=== PATIENT | female | born 1970 | race Caucasian/White ===

== ENCOUNTER 2018-10-19 12:28 | Observation (INO) ==
[2018-10-19] MEDS ORDERED: methylPREDNISolone 125 MG/2 ML VIAL IVP ONE (12:46)
[2018-10-19] MEDS ORDERED: Ipratropium/Albuterol Neb 3 ML IH ONE (12:46)
[2018-10-19 13:32] LABS: Basophils % 0.3 %; Eosinophils # 0.1 K/mcL (0.0-0.6); Hematocrit 36.9 % (35.3-44.9); Hemoglobin 11.8 g/dL (11.5-15.4); Immature Granulocytes % 0.4 % (0-4); Lymphocytes # 3.5 K/mcL (0.6-4.6); Lymphocytes % 30.2 %; Mean Corpuscular Hemoglobin 27.1 pg (28.0-33.3); Mean Corpuscular Volume 84.8 fL (83.0-100.0); Mean Platelet Volume 11.1 fL (9.4-12.4); Monocytes # 0.6 K/mcL (0.0-1.3); Monocytes % 5.3 %; Neutrophils # 7.4 K/mcL (1.6-8.9); Platelet Count 241 K/mcL (140-400); Red Blood Count 4.35 M/mcL (3.82-4.97); Red Cell Distribution Width 13.1 % (11.5-14.5); Segmented Neutrophils % 62.8 %
[2018-10-19] MEDS ORDERED: 0.9 % Sodium Chloride 1,000 ML IVC ONE (13:35)
[2018-10-19 13:53] LABS: BUN/Creatinine Ratio 17 (6-26); Blood Urea Nitrogen 12 mg/dL (6-20); Calcium 9.1 mg/dL (8.6-10.3); Carbon Dioxide 21 mEq/L (23-29); Chloride 103 mEq/L (98-107); Glucose 187 mg/dL (70-105); Osmolality,Calculated 291 (280-300); Potassium 3.7 mEq/L (3.5-5.1); Sodium 138 mEq/L (136-145); eGFR For Non-African Americans > 60 (> 60)
[2018-10-19 13:54] LABS: Troponin I < 0.03 ng/mL (< 0.04)
--- NOTE | 2018-10-19 14:11 | Emergency Department Note ---
Disposition Clinical Impression: Asthma exacerbation Qualifiers: Asthma severity: severe Asthma persistence: persistent Qualified Code(s): J45.51 - Severe persistent asthma with (acute) exacerbation Disposition: Admitted As Inpatient Condition: Good SOB HPI - General Chief Complaint: ED Shortness of Breath/Dyspnea Stated Complaint: DION Time Seen by Provider: 10/19/18 12:43 Source: patient Mode of arrival: ambulatory Limitations: no limitations Nursing Notes Reviewed: Yes Vital Signs Reviewed: Yes - History of Present Illness Patient presenting to the emergency department complaining of shortness of breaths her last week and getting worse specifically last night. Patient uses an inhaler with spacer. She has been using 2 puffs every 4 hours as previously directed. Patient is to The mid 30s. Overall decreased air movement. History of asthma/COPD with no home oxygen requirement. No previous cardiac history. Patient will be treated for asthma exacerbation and reevaluated. - Related Data Home Medications Medication Instructions Recorded Confirmed Metformin HCl 1,000 mg PO BID 10/19/18 10/19/18 RX: FLUoxetine HCl [Prozac] 40 mg PO DAILY 10/19/18 10/19/18 RX: Lansoprazole [Prevacid] 30 mg PO DAILY 10/19/18 10/19/18 RX: Lisinopril [Zestril] 10 mg PO DAILY 10/19/18 10/19/18 Allergies Allergy/AdvReac Type Severity Reaction Status Date / Time acetaminophen AdvReac Hives Verified 08/06/18 13:20 [From Darvocet-N] ibuprofen AdvReac Rash Verified 08/06/18 13:20 Penicillins [PCN] AdvReac Hives Verified 08/06/18 13:20 prochlorperazine AdvReac Itching Verified 08/06/18 13:20 [From Compazine] propoxyphene AdvReac Hives Verified 08/06/18 13:20 [From Darvocet-N] Sulfa (Sulfonamide AdvReac Hives Verified 08/06/18 13:20 Antibiotics) All systems ED: reviewed and negative except as stated. Review of Systems: As Per HPI Constitutional: Denies: fever, chills ENT ED: Denies: congestion Cardiovascular: Reports: dyspnea on exertion. Denies: chest pain, palpitations Respiratory: Reports: cough, dyspnea, wheezes Gastrointestinal: Denies: abdominal pain, nausea, vomiting Genitourinary: Denies: urgency, dysuria Musculoskeletal: Denies: back pain Integumentary: Denies: rash, abrasion, lesions Neurological: Denies: headache Psychiatric: Reports: anxiety Endocrine: Reports: fatigue Past Medical History - Past Medical History Medical history: Reports: asthma, COPD, diabetes, hyperlipidemia, hypertension Surgical history: Reports: non-contributory Psychiatric history: Reports: no psych history LAST PULLER history: Reports: no LAST PULLER history - Social History Smoking Status: 2nd Hand Smoke Exposure Smokeless Tobacco Status: No Alcohol use: Reports: none Drug use: Reports: none Physical Exam General: Moderate respiratory distress Head: Normocephalic Atraumatic Eyes: PERRL, EOMI ENT: Airway patent, no stridor Neck: supple, no meningismus Chest: Wheezing bilaterally with overall decreased air movement. Cardiac: Regular rate and rhythm, no murmurs, rubs or gallops Abdomen: soft, nontender, nondistended; no guarding, rebound, or tenderness to percussion Musculoskeletal: Calves symmetric, nontender, no palpable cord Skin: No rash, normal skin tone Neuro: A awake alert and answering all questions appropriately but significantly anxious; No focal deficit, CN 2-12 symmetric and intact - General General appearance: alert, anxious Course - Reevaluation(s) Reevaluation #1: Symptoms significantly improved but not resolved. Patient is requiring 2 L nasal cannula to keep her pulse ox at 97-98%. Patient states that she has been remodeling her home and exposed to significant mold. Repeat lung exam shows continued wheezing but significant improved. - Consultations Consultation #1: Discussed with hospitalist. Patient accepted for admission. Vital Signs Temperature 98.0 F 10/19/18 12:29 Pulse Rate 81 10/19/18 12:29 Respiratory Rate 34 10/19/18 12:29 Blood Pressure 136/72 10/19/18 12:29 O2 Sat by Pulse Oximetry 98 10/19/18 12:29 Temperature 98.3 F 10/19/18 19:47 Pulse Rate 82 10/19/18 19:47 Respiratory Rate 19 10/19/18 19:47 Blood Pressure 155/75 10/19/18 19:47 O2 Sat by Pulse Oximetry 94 10/19/18 19:47 Oxygen Delivery Oxygen Delivery Nasal Cannula Shortness of Breath/Dyspnea - Medical Records Medical records reviewed: Yes I reviewed the patient's medical records. - Lab Data Lab results reviewed: Yes I reviewed the patient's lab results. Result diagrams: 18 12:56 18 12:56 Lab Results 10/19/1818 18 Range/Units 12:56 12:56 12:56 WBC 11.7 H (4.3-11.1) K/mcL RBC 4.35 (3.82-4.97) M/mcL Hgb 11.8 (11.5-15.4) g/dL Hct 36.9 (35.3-44.9) % MCV 84.8 (83.0-100.0) fL MCH 27.1 L (28.0-33.3) pg MCHC 32.0 (31.6-35.5) g/dL RDW 13.1 (11.5-14.5) % Plt Count 241 (140-400) K/mcL MPV 11.1 (9.4-12.4) fL Immature Gran % 0.4 (0-4) % Seg Neutrophils % 62.8 % Lymphocytes % 30.2 % Monocytes % 5.3 % Eosinophils % 1.0 % Basophils % 0.3 % Neutrophils # 7.4 (1.6-8.9) K/mcL Lymphocytes # 3.5 (0.6-4.6) K/mcL Monocytes # 0.6 (0.0-1.3) K/mcL Eosinophils # 0.1 (0.0-0.6) K/mcL Basophils # 0.0 (0.0-0.2) K/mcL Sodium 138 (136-145) mEq/L Potassium 3.7 (3.5-5.1) mEq/L Chloride 103 (98-107) mEq/L Carbon Dioxide 21 L (23-29) mEq/L BUN 12 (6-20) mg/dL Creatinine 0.72 (0.60-1.20) mg/dL Est GFR ( Amer) > 60 (> 60) Est GFR (Non-Af Amer) > 60 (> 60) BUN/Creatinine Ratio 17 (6-26) Glucose 187 H (70-105) mg/dL Calculated Osmolality 291 (280-300) Lactic Acid 4.4 H* (0.5-2.2) mmol/L Calcium 9.1 (8.6-10.3) mg/dL Troponin I < 0.03 (< 0.04) ng/mL B-Natriuretic Peptide (Less than 100) pg/mL 10/19/18 10/19/18 Range/Units 12:56 14:14 WBC (4.3-11.1) K/mcL RBC (3.82-4.97) M/mcL Hgb (11.5-15.4) g/dL Hct (35.3-44.9) % MCV (83.0-100.0) fL MCH (28.0-33.3) pg MCHC (31.6-35.5) g/dL RDW (11.5-14.5) % Plt Count (140-400) K/mcL MPV (9.4-12.4) fL Immature Gran % (0-4) % Seg Neutrophils % % Lymphocytes % % Monocytes % % Eosinophils % % Basophils % % Neutrophils # (1.6-8.9) K/mcL Lymphocytes # (0.6-4.6) K/mcL Monocytes # (0.0-1.3) K/mcL Eosinophils # (0.0-0.6) K/mcL Basophils # (0.0-0.2) K/mcL Sodium (136-145) mEq/L Potassium (3.5-5.1) mEq/L Chloride (98-107) mEq/L Carbon Dioxide (23-29) mEq/L BUN (6-20) mg/dL Creatinine (0.60-1.20) mg/dL Est GFR ( Amer) (> 60) Est GFR (Non-Af Amer) (> 60) BUN/Creatinine Ratio (6-26) Glucose (70-105) mg/dL Calculated Osmolality (280-300) Lactic Acid 4.1 H* (0.5-2.2) mmol/L Calcium (8.6-10.3) mg/dL Troponin I (< 0.04) ng/mL B-Natriuretic Peptide 29 (Less than 100) pg/mL - Radiology Data Radiology results reviewed: Yes I reviewed the patient's radiology results. - EKG Data EKG attestation: Yes I reviewed and interpreted this EKG. EKG results narrative: EKG shows sinus rhythm with heart of 83 ID interval 724 QRS 97 QTC 433 patient has no significant ST elevations or depressions. No old EKG within the system for comparison.
--- NOTE | 2018-10-19 15:26 | Internal Med History&Physical ---
<Rakan Laws - Last Filed: 10/19/18 15:42> Date of Encounter: 10/19/18 Time of Encounter: 15:21 Internal Medicine - H&P: HPI Chief complaint: Shortness of breath Admitted From: Home Plans for Post Hospital Care: Home History of present illness: Ms. Archibald is a 48 year old female past medical history of type 2 diabetes, severe asthma, obesity presented to the emergency department with shortness of breath and fatigue. states that over the weekend starting on Friday she noticed that it became harder for her to breathe, she was breathing more rapidly colon cancer breath and using her inhalers frequently. She states that she had used her albuterol inhaler roughly 5-6 times throughout the day multiple times at night and using her nebulizer machine frequently. Usually she only uses her albuterol inhaler twice a day and her nebulizer maybe once or twice a month. She states that over the last 3 months they have been remodeling their house and recently tore up her floors with exposure of mold under the floor boards. She is unsure if this was the cause but this she associates as an allergen and potential cause. She does mention that she was hospitalized one month ago at [facility] for strep throat states that she became septic and was given IV Levaquin which she had an anaphylactic reaction and transferred to the ICU for treatment. Since discharge she had been doing well until this past weekend. She has not had any real changes to her medications except for switching from Ventolin to pro-air for inhalers. She denies any other concerning symptoms. Past Med Surg Social Fam HX - Past Medical History Medical history: asthma, COPD, diabetes, hyperlipidemia, hypertension Psychiatric history: no psych history - Past Surgical History Surgical History: non-contributory - Social History Smoking Status: 2nd Hand Smoke Exposure Smokeless Tobacco Status: No Alcohol use: none Drug use: none - Family History Mother Hx Family Endocrine Disorder: Yes (Hypothyroidism) Father Hx Family Cardiac Disorders: Yes (Lower extremity swelling) Hx Family Endocrine Disorder: Yes (Hypothyroidism) Internal Medicine - H&P: Meds FLUoxetine HCl [Prozac] 40 mg PO DAILY 10/19/18 [History] Lansoprazole [Prevacid] 30 mg PO DAILY 10/19/18 [History] Lisinopril [Zestril] 10 mg PO DAILY 10/19/18 [History] Metformin HCl 1,000 mg PO BID 10/19/18 [History] Allergy/AdvReac Type Severity Reaction Status Date / Time acetaminophen AdvReac Hives Verified 08/06/18 13:20 [From Darvocet-N] ibuprofen AdvReac Rash Verified 08/06/18 13:20 Penicillins [PCN] AdvReac Hives Verified 08/06/18 13:20 prochlorperazine AdvReac Itching Verified 08/06/18 13:20 [From Compazine] propoxyphene AdvReac Hives Verified 08/06/18 13:20 [From Darvocet-N] Sulfa (Sulfonamide AdvReac Hives Verified 08/06/18 13:20 Antibiotics) All Systems PM: A 10-system review of systems was performed and is negative for pertinent findings except as documented above in the HPI. Review of systems: Positive for shortness of breath, tachypnea, headaches Denies fevers, chills, diaphoresis, change in vision, throat swelling, chest pain or chest pressure, abdominal pain, nausea vomiting diarrhea constipation or swelling in her extremities. - Constitutional Vitals: Temp Pulse Resp BP Pulse Ox 98.0 F 74 18 136/67 96 10/19/18 12:42 10/19/18 13:40 10/19/18 13:40 10/19/18 13:40 10/19/18 13:40 Exam: Gen. alert awake oriented in mild distress, tachypnea HEENT normocephalic, atraumatic, pupils equal reactive, oral mucosa dry, neck supple trachea midline no stridor present auscultation, no lymphadenopathy Skin appropriate color no noticeable rashes. Cardiac regular rate rhythm, grade 2/6 systolic ejection murmur, radial pulses 2+ bilateral no lower extremity edema Respiratory patient demonstrates tachypnea, diffuse wheezing with mild prolonged exhalation Abdomen soft nontender to palpation positive bowel sounds Extremities symmetric no erythema or edema Internal Med - H&P Results - Labs CBC & Chem 7: 10/19/18 12:56 10/19/18 12:56 Labs: Short CBC 10/19/18 Range/Units 12:56 WBC 11.7 H (4.3-11.1) K/mcL Hgb 11.8 (11.5-15.4) g/dL Hct 36.9 (35.3-44.9) % Plt Count 241 (140-400) K/mcL Neutrophils # 7.4 (1.6-8.9) K/mcL BMP 10/19/18 12:56 Sodium 138 Potassium 3.7 Chloride 103 Carbon Dioxide 21 L BUN 12 Creatinine 0.72 Glucose 187 H Calcium 9.1 Cardiac Enzymes 10/19/18 Range/Units 12:56 Troponin I < 0.03 (< 0.04) ng/mL - Impressions ITS Impressions Chest X-Ray 10/19/18 12:46 IMPRESSION: No acute cardiopulmonary disease. D/ / 10/19/2018 13:16:43 David Vill[facility]uerte MD / [facility] Interpreting Provider: David Villafuerte MD - Assessment and plan (1) Asthma exacerbation Current Visit: Yes Status: Acute Assessment and plan: Patient with a history of severe asthma presents with acute asthma exacerbation. - She has had increased inhaler use 5-6 times throughout the day multiple times at night, increased nebulizer treatments, shortness of breath at rest and with mild activity - Unable to control with home inhalers, presented found to be tachypnea, hypoxic requiring steroids and do a nebulizer treatment. Lactic acid 4.4 - Chest x-ray without concerning findings. Plan: - Continue IV steroids every 8 hours - Continue scheduled to nebulizer treatments - Patient may need long-acting steroid inhaler at the time of discharge - Continue to wean off oxygen - Trend lactic acid every 6 hours - TSH Qualifiers: Asthma severity: severe Asthma persistence: persistent Qualified Code(s): J45.51 - Severe persistent asthma with (acute) exacerbation (2) Type 2 diabetes mellitus Current Visit: Yes Status: Acute Assessment and plan: Patient type II diabetic only on metformin at home. - Hold metformin in the event of lactic acidosis - Before meals at bedtime glucose checks - Low-dose sliding scale insulin patient will receive steroids likely need increase as necessary. Qualifiers: Diabetes mellitus senior care insulin use: without manager intermediate use Diabetes mellitus complication status: without complication Qualified Code(s): E11.9 - Type 2 diabetes mellitus without complications (3) Hypertension Current Visit: Yes Status: Acute Assessment and plan: Continue home lisinopril. We will monitor blood pressure adjust as necessary. Mild elevation in the setting of acute exacerbation at this time. Qualifiers: Hypertension type: essential hypertension Qualified Code(s): I10 - Essential (primary) hypertension (4) Lactic acid acidosis Current Visit: Yes Status: Acute Assessment and plan: Lactic acid 4.4 in the setting of acute Asthma exacerbation. - Patient improving clinically in the emergency room - Likely elevated in the setting of increased inhaler use, respiratory acidosis and metformin use - Will hold metformin and treat Asthma exacerbation. - repeat Lactic acid levels in 6 hours. (5) DVT prophylaxis Current Visit: Yes Status: Acute Assessment and plan: SCDs - Time Spent With Patient Total time spent is greater than 50% in coordination of care (as documented) at patient's floor/unit and/or counseling patient: <Sr Pinkybillbasia - Last Filed: 10/19/18 16:59> Date of Encounter: 10/19/18 Time of Encounter: 16:00 Internal Medicine - H&P: HPI History of present illness: Ms. Archibald is a 48 year old female Past Med Surg Social Fam HX - Past Medical History Attestation: Yes The following information was validated with the patient. All Systems PM: A 10-system review of systems was performed and is negative for pertinent findings except as documented above in the HPI. - Constitutional Vitals: Temp Pulse Resp BP Pulse Ox 99.2 F 90 18 155/78 94 10/19/18 15:32 10/19/18 15:32 10/19/18 15:32 10/19/18 15:32 10/19/18 15:32 General appearance: Present: cooperative, A&O X 3, pleasant, answers questions appropriately Internal Med - H&P Results - Labs CBC & Chem 7: 10/19/18 12:56 10/19/18 12:56 Labs: Short CBC 10/19/18 Range/Units 12:56 WBC 11.7 H (4.3-11.1) K/mcL Hgb 11.8 (11.5-15.4) g/dL Hct 36.9 (35.3-44.9) % Plt Count 241 (140-400) K/mcL Neutrophils # 7.4 (1.6-8.9) K/mcL BMP 10/19/18 12:56 Sodium 138 Potassium 3.7 Chloride 103 Carbon Dioxide 21 L BUN 12 Creatinine 0.72 Glucose 187 H Calcium 9.1 Cardiac Enzymes 10/19/18 Range/Units 12:56 Troponin I < 0.03 (< 0.04) ng/mL - Impressions ITS Impressions Chest X-Ray 10/19/18 12:46 IMPRESSION: No acute cardiopulmonary disease. D/ / 10/19/2018 13:16:43 [facility] / [facility] Interpreting Provider: David Villafuerte MD - Time Spent With Patient Total time spent is greater than 50% in coordination of care (as documented) at patient's floor/unit and/or counseling patient: - Attending Attestation I saw evaluated and examined this patient and my medical decision-making was reviewed with the Resident Physician, Rakan Laws. I agree with the documented findings, disposition and treatment plan as described except to any changes set forth below. We independently had [id number] contact with the patient. Patient with a history of COPD, asthma, diabetes, hypertension presented to the ER with complaints of worsening shortness of breath. Her symptoms began on Friday and have been progressively worsening. She reports that she was admitted to by the hospital 1 month back for an episode of strep related septic shock. She had developed swelling in her throat and they were managing her in ICU because of concerns for airway patency. However she did not require to be intubated. She responded to steroids and antibiotics. She completed treatment with antibiotics as outpatient and recovered well from it. She has been cleaning her home for the past couple of days and has been exposed to dust and mold. Patient does not see a belly roller. Her asthma is managed by her primary care provider. She is not on home oxygen. Patient does report exertional dyspnea and lower extremity swelling. She does not have chest pain. General: Patient is alert, no acute distress, oriented x 3 Neck: normal inspection, trachea midline, full ROM, no carotid bruits Chest: normal inspection, symmetric chest rise Respiratory: Patient has bilateral end expiratory wheezing, rhonchi Cardiovascular: Regular rate and rhythm. s1 and s2 normal systolic murmur Bilateral pedal edema Abdomen: Abdomen is soft, nontender. Bowel sounds are present Musculoskeletal: Spontaneously moving all extremities Skin: warm, dry, intact. Neuro: Alert oriented x 3 normal cranial nerves, no focal deficits Psych: Patient's affect is normal Acute COPD/asthma exacerbation: Patient will be treated with bronchodilators, Solu-Medrol, and O2 supplementation as needed. Measure peak flows. High risk for complications. Check respiratory viral panel. Exertional dyspnea and pedal edema: Patient has a murmur and also has exertional dyspnea and lower extremity edema. We will obtain 2-D echocardiogram to better evaluate this. Essential hypertension: Monitor blood pressure. Resume home medications. Diabetes mellitus type 2: Sliding scale insulin. Diabetic diet. Lactic acidosis: Patient has elevated lactic acid. Could be due to multiple labs that the patient took at home. She is also on metformin. We will trend lactic acid levels while patient is in the hospital. She does not have any signs of hypotension or septic shock at this time. DVT prophylaxis with subcutaneous heparin.
[2018-10-19] MEDS ORDERED: *HR* Dextrose 50 % in Water (Syg) 50 ML SYRINGE IVP PRN (15:35)
[2018-10-19] MEDS ORDERED: Dextrose Gel 15 GM/37.5 ML TUBE PO PRN ×2 (15:35)
[2018-10-19] MEDS ORDERED: D5% in Water 1,000 ML IVC PRN (15:35)
[2018-10-19] MEDS ORDERED: Naloxone 0.4 MG/ML INJ IVP PRN (15:36)
[2018-10-19] MEDS ORDERED: Ringers Solution, Lactated 1,000 ML IVC SCH (15:45)
[2018-10-19] MEDS ORDERED: Ipratropium/Albuterol Neb 3 ML ONE (16:03)
[2018-10-19 16:35] LABS: Estimated Average Glucose 183 mg/dl
[2018-10-19 16:42] LABS: Magnesium 1.7 mg/dL (1.6-2.6); Phosphorous 2.8 mg/dL (2.7-4.5)
[2018-10-19] MEDS: Ipratropium/Albuterol Neb 3 ML IH SCH ×2 (16:42→21:48)
[2018-10-19] MEDS: Insulin LISPRO 300 UNITS/3 ML VIAL SQ SCH ×2 (18:29→21:16)
[2018-10-19 19:47] LABS: Adenovirus Not Detected (Not Detect); Bordetella Pertussis Not Detected (Not Detect); Chlamydophila pneumoniae Not Detected (Not Detect); Coronavirus 229E Not Detected (Not Detect); Coronavirus HKU1 Not Detected (Not Detect); Coronavirus NL63 Not Detected (Not Detect); Coronavirus OC43 Not Detected (Not Detect); Human Metapneumovirus Not Detected (Not Detect); Human Rhinovirus/Enterovirus Not Detected (Not Detect); Influenza A Subtype 2009 H1 Not Detected (Not Detect); Influenza A Untypeable Not Detected (Not Detect); Influenza B Not Detected (Not Detect); Mycoplasma pneumoniae Not Detected (Not Detect); Parainfluenza Virus 1 Not Detected (Not Detect); Parainfluenza Virus 2 Not Detected (Not Detect); Parainfluenza Virus 3 Not Detected (Not Detect); Parainfluenza Virus 4 Not Detected (Not Detect); Respiratory Syncytial Virus Not Detected (Not Detect)
[2018-10-19] MEDS: MethylPREDNISolone 40 MG/ML VIAL IVP SCH (21:16)
[2018-10-19] MEDS ORDERED: Menthol 9.1 MG LOZENGE PO PRN (23:39)
[2018-10-20] MEDS: Ipratropium/Albuterol Neb 3 ML IH SCH ×4 (03:27→22:18)
[2018-10-20 04:32] LABS: Basophils % 0.1 %; Hematocrit 37.8 % (35.3-44.9); Hemoglobin 12.3 g/dL (11.5-15.4); Immature Granulocytes % 0.9 % (0-4); Lymphocytes # 1.9 K/mcL (0.6-4.6); Lymphocytes % 11.8 %; Mean Corpuscular HGB Conc 32.5 g/dL (31.6-35.5); Mean Corpuscular Volume 83.1 fL (83.0-100.0); Mean Platelet Volume 11.2 fL (9.4-12.4); Monocytes # 0.2 K/mcL (0.0-1.3); Monocytes % 1.2 %; Neutrophils # 13.8 K/mcL (1.6-8.9); Platelet Count 270 K/mcL (140-400); Red Blood Count 4.55 M/mcL (3.82-4.97); Red Cell Distribution Width 13.4 % (11.5-14.5)
[2018-10-20 04:47] LABS: Alanine Aminotransferase 25 Units/L (7-52); Albumin 4.4 g/dL (3.5-5.7); Albumin/Globulin Ratio 1.6 (1.1-2.2); Alkaline Phosphatase 94 Units/L (34-104); Aspartate Amino Transferase 15 Units/L (13-39); BUN/Creatinine Ratio 20 (6-26); Bilirubin,Total 0.4 mg/dL (0.3-1.0); Blood Urea Nitrogen 11 mg/dL (6-20); Calcium 9.5 mg/dL (8.6-10.3); Carbon Dioxide 19 mEq/L (23-29); Chloride 105 mEq/L (98-107); Globulin 2.7 g/dL (2.4-3.5); Glucose 236 mg/dL (70-105); Osmolality,Calculated 291 (280-300); Potassium 4.1 mEq/L (3.5-5.1); Sodium 137 mEq/L (136-145); Total Protein 7.1 g/dL (6.4-8.9); eGFR For Non-African Americans > 60 (> 60)
[2018-10-20] MEDS: MethylPREDNISolone 40 MG/ML VIAL IVP SCH ×3 (05:48→21:32)
[2018-10-20] MEDS: FLUoxetine 20 MG CAPSULE PO SCH (08:12)
[2018-10-20] MEDS: Insulin LISPRO 300 UNITS/3 ML VIAL SQ SCH ×4 (08:13→21:32)
--- NOTE | 2018-10-20 08:50 | Electrocardiograph Report ---
[place] [employer] [facility] Test Date: 2018-10-19 Pat Name: Pedro Archibald Department: [id number] Room: 2A15 Gender: F Operater: : 1970 Requested By: Evan Bronson Order Number: [id number] Reading MD: Willy Duarte Measurements Intervals [place] Rate: 83 P: 27 [place]: 144 QRS: -3 QRSD: 97 T: 73 QT: 368 QTc: 433 Interpretive Statements Sinus rhythm Electronically Signed On 10-20-2018 8:48:43 EST by Willy Duarte
[2018-10-20] MEDS ORDERED: Acetaminophen 325 MG TABLET PO PRN (13:59)
[2018-10-20] MEDS: *HR* Heparin 5,000 UNIT/ML VIAL SQ SCH (17:10)
--- NOTE | 2018-10-20 19:13 | Internal Med Progress Note ---
Hospitalist Progress Note - Encounter Date of Encounter: 10/20/18 Time of Encounter: 11:00 - Subjective Interval History: Patient admitted due to shortness of breath secondary to asthma exacerbation. Patient with little improvement in symptoms overnight so we will continue IV Solu-Medrol in addition to scheduled DuoNeb's. - Exam Vitals: Temp Pulse Resp BP Pulse Ox 98.7 F 77 18 128/64 93 10/20/18 15:38 10/20/18 15:38 10/20/18 15:48 10/20/18 15:38 10/20/18 15:48 Exam: Gen.: Nonacute distress, alert and oriented 3 ENT: Mucosal membranes moist Respiratory: Decreased airflow with wheezing Cardiovascular: Normal S1 and S2 regular rate rhythm no murmurs rubs or gallops Abdomen: Soft, nontender and nondistended with positive bowel sounds Extremities: No lower extremity edema Skin: Normal color - Assessment and Plan (1) Asthma exacerbation Current Visit: Yes Status: Acute Assessment and Plan: Patient with little improvement in expiratory wheezing and airflow Will continue IV Solu-Medrol and scheduled DuoNeb (2) Hypertension Current Visit: Yes Status: Acute Assessment and Plan: Continue home medications (3) Type 2 diabetes mellitus Current Visit: Yes Status: Acute Assessment and Plan: Continue home medications (4) DVT prophylaxis Current Visit: Yes Status: Acute Assessment and Plan: Subcutaneous heparin - Time Spent with Patient Total time spent is greater than 50% in coordination of care (as documented) at patient's floor/unit and/or counseling patient: Internal Medicine: Result - Labs CBC & Chem 7: 10/20/18 03:48 10/20/18 03:48 Labs: Short CBC 10/20/18 Range/Units 03:48 WBC 16.0 H (4.3-11.1) K/mcL Hgb 12.3 (11.5-15.4) g/dL Hct 37.8 (35.3-44.9) % Plt Count 270 (140-400) K/mcL Neutrophils # 13.8 H (1.6-8.9) K/mcL BMP 10/20/18 03:48 Sodium 137 Potassium 4.1 Chloride 105 Carbon Dioxide 19 L BUN 11 Creatinine 0.56 L Glucose 236 H Calcium 9.5 Liver Function 10/20/18 Range/Units 03:48 Total Bilirubin 0.4 (0.3-1.0) mg/dL AST 15 (13-39) Units/L ALT 25 (7-52) Units/L Alkaline Phosphatase 94 (34-104) Units/L Albumin 4.4 (3.5-5.7) g/dL - Impressions Impressions Chest X-Ray 10/19/18 12:46 IMPRESSION: No acute cardiopulmonary disease. D/ / 10/19/2018 13:16:43 David Villafuerte MD / [facility] Interpreting Provider: David Villafuerte MD Echocardiogram 10/20/18 07:00 Impressions: LVEF 60-65%. Normal LV chamber size, wall thickness and function. Mild left ventricular diastolic dysfunction. Moderate concentric left ventricular hypertrophy. Normal right ventricular structure and function. Trace mitral regurgitation. Unable to estimate RVSP due to lack of TR jet. The IVC is dilated. Left Ventricular Wall Motion: Rest Echo Findings All wall segments showed normal motion. Findings: Study Quality * Technically adequate exam. ECG Findings * Normal sinus rhythm. Left Ventricle * LVEF 60-65%. * Normal LV chamber size, wall thickness and function. * Mild left ventricular diastolic dysfunction. * Moderate concentric left ventricular hypertrophy. Right Ventricle * Normal right ventricular structure and function. Left Atrium * Normal left atrial size. Right Atrium * Normal right atrial size. Interatrial Septum * No evidence of PFO by color Doppler. Aortic Valve * Trileaflet aortic valve. * No aortic regurgitation. * No aortic stenosis. Mitral Valve * Normal mitral valve structure. * No mitral stenosis. * Trace mitral regurgitation. Tricuspid Valve * Normal tricuspid valve structure. * No tricuspid regurgitation. * No tricuspid stenosis. * Unable to estimate RVSP due to lack of TR jet. Pulmonic Valve * Normal pulmonic valve structure. * No pulmonic regurgitation. Aorta * Normally sized aortic root. Pericardium * The pericardium appears normal. IVC * The IVC is dilated. 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
[2018-10-21] MEDS: Ipratropium/Albuterol Neb 3 ML IH SCH ×5 (04:01→23:15)
[2018-10-21] MEDS: MethylPREDNISolone 40 MG/ML VIAL IVP SCH ×3 (04:52→21:03)
[2018-10-21] MEDS: *HR* Heparin 5,000 UNIT/ML VIAL SQ SCH ×2 (04:54→17:32)
[2018-10-21] MEDS: Insulin LISPRO 300 UNITS/3 ML VIAL SQ SCH ×4 (10:02→21:04)
[2018-10-21] MEDS: FLUoxetine 20 MG CAPSULE PO SCH (10:03)
[2018-10-21 11:05] LABS: Basophils % 0.2 %; Hematocrit 35.7 % (35.3-44.9); Hemoglobin 11.5 g/dL (11.5-15.4); Immature Granulocytes % 2.2 % (0-4); Lymphocytes # 1.4 K/mcL (0.6-4.6); Lymphocytes % 7.5 %; Mean Corpuscular HGB Conc 32.2 g/dL (31.6-35.5); Mean Corpuscular Hemoglobin 27.3 pg (28.0-33.3); Mean Corpuscular Volume 84.8 fL (83.0-100.0); Mean Platelet Volume 11.4 fL (9.4-12.4); Monocytes # 0.5 K/mcL (0.0-1.3); Monocytes % 2.8 %; Neutrophils # 15.8 K/mcL (1.6-8.9); Platelet Count 275 K/mcL (140-400); Red Blood Count 4.21 M/mcL (3.82-4.97); Segmented Neutrophils % 87.3 %
[2018-10-21 11:20] LABS: BUN/Creatinine Ratio 33 (6-26); Blood Urea Nitrogen 24 mg/dL (6-20); Calcium 9.7 mg/dL (8.6-10.3); Carbon Dioxide 24 mEq/L (23-29); Chloride 104 mEq/L (98-107); Glucose 365 mg/dL (70-105); Osmolality,Calculated 305 (280-300); Potassium 4.7 mEq/L (3.5-5.1); Sodium 138 mEq/L (136-145); eGFR For Non-African Americans > 60 (> 60)
[2018-10-21] MEDS ORDERED: GuaiFENesin/Dextromethorphan TABLET PO PRN (19:08)
--- NOTE | 2018-10-21 19:58 | Internal Med Progress Note ---
Hospitalist Progress Note - Encounter Date of Encounter: 10/21/18 Time of Encounter: 11:00 - Subjective Interval History: Patient admitted due to shortness of breath secondary to asthma exacerbation. Patient with little improvement in symptoms overnight so we will continue IV Solu-Medrol in addition to scheduled DuoNeb's. Anticipate discharge on 10/22/18 - Exam Vitals: Temp Pulse Resp BP Pulse Ox 98.4 F 68 16 160/78 98 10/21/18 18:42 10/21/18 18:42 10/21/18 19:42 10/21/18 18:42 10/21/18 19:42 Exam: Gen.: Nonacute distress, alert and oriented 3 ENT: Mucosal membranes moist Respiratory: Decreased airflow with wheezing Cardiovascular: Normal S1 and S2 regular rate rhythm no murmurs rubs or gallops Abdomen: Soft, nontender and nondistended with positive bowel sounds Extremities: No lower extremity edema Skin: Normal color - Assessment and Plan (1) Asthma exacerbation Current Visit: Yes Status: Acute Assessment and Plan: Patient with little improvement in expiratory wheezing and airflow Will continue IV Solu-Medrol and scheduled DuoNeb (2) Hypertension Current Visit: Yes Status: Acute Assessment and Plan: Continue home medications (3) Type 2 diabetes mellitus Current Visit: Yes Status: Acute Assessment and Plan: Continue home medications (4) DVT prophylaxis Current Visit: Yes Status: Acute Assessment and Plan: Subcutaneous heparin - Time Spent with Patient Total time spent is greater than 50% in coordination of care (as documented) at patient's floor/unit and/or counseling patient: Internal Medicine: Result - Labs CBC & Chem 7: 10/21/18 10:18 10/21/18 10:18 Labs: Short CBC 10/21/18 Range/Units 10:18 WBC 18.1 H (4.3-11.1) K/mcL Hgb 11.5 (11.5-15.4) g/dL Hct 35.7 (35.3-44.9) % Plt Count 275 (140-400) K/mcL Neutrophils # 15.8 H (1.6-8.9) K/mcL BMP 10/21/18 10:18 Sodium 138 Potassium 4.7 Chloride 104 Carbon Dioxide 24 BUN 24 H Creatinine 0.73 Glucose 365 H Calcium 9.7 Consult Discharge Plan - Plan Referrals: Maria E Mackey MD [Primary Care Provider] - (1) Asthma exacerbation Qualifiers: Asthma severity: severe Asthma persistence: persistent Qualified Code(s): J45.51 - Severe persistent asthma with (acute) exacerbation (2) Hypertension Qualifiers: Hypertension type: essential hypertension Qualified Code(s): I10 - Essential (primary) hypertension (3) Type 2 diabetes mellitus Qualifiers: Diabetes mellitus nursing home insulin use: without vermin exterminator use Diabetes mellitus complication status: without complication Qualified Code(s): E11.9 - Type 2 diabetes mellitus without complications
[2018-10-22] MEDS: Ipratropium/Albuterol Neb 3 ML IH SCH ×3 (03:09→11:35)
[2018-10-22] MEDS: MethylPREDNISolone 40 MG/ML VIAL IVP SCH (05:20)
[2018-10-22] MEDS: *HR* Heparin 5,000 UNIT/ML VIAL SQ SCH (05:21)
[2018-10-22] MEDS: FLUoxetine 20 MG CAPSULE PO SCH (08:27)
[2018-10-22] MEDS: Insulin LISPRO 300 UNITS/3 ML VIAL SQ SCH ×2 (08:28→11:45)
[2018-10-22 11:20] VITALS: BP 178/80
--- NOTE | 2018-10-22 15:13 | Discharge Summary ---
- NOTES TO OUTPATIENT PROVIDER Notes to Outpatient Provider: none Date of Encounter: 10/22/18 Time of Encounter: 11:00 - Discharge Diagnosis (1) Asthma exacerbation Priority: Primary Status: Acute Qualifiers: Asthma severity: severe Asthma persistence: persistent Qualified Code(s): J45.51 - Severe persistent asthma with (acute) exacerbation (2) Hypertension Priority: Secondary Status: Acute Qualifiers: Hypertension type: essential hypertension Qualified Code(s): I10 - Essential (primary) hypertension (3) Type 2 diabetes mellitus Priority: Secondary Status: Acute Qualifiers: Diabetes mellitus half-way insulin use: without exterminator helper termite use Diabetes mellitus complication status: without complication Qualified Code(s): E11.9 - Type 2 diabetes mellitus without complications Hospital course: Patient is a 48-year-old male with past medical history significant for type 2 diabetes, severe asthma, obesity presented to the emergency department with shortness of breath and fatigue who was admitted for asthma exacerbation. During patients hospitalization or symptoms of wheezing and shortness of breath improved on IV Solu-Medrol and scheduled DuoNebs. Patient will be discharged home to continue a 5 day course of prednisone and follow up with primary care provider. - Time Spent with Patient Total time spent providing and/or coordinating discharge services: Less than 30 minutes - Discharge Medications Prescriptions: predniSONE [PredniSONE] 40 mg PO DAILY 5 Days #10 tablet Home Medications: FLUoxetine HCl [Prozac] 40 mg PO DAILY 10/19/18 [History] Lansoprazole [Prevacid] 30 mg PO DAILY 10/19/18 [History] Lisinopril [Zestril] 10 mg PO DAILY 10/19/18 [History] Metformin HCl 1,000 mg PO BID 10/19/18 [History] predniSONE [PredniSONE] 40 mg PO DAILY 5 Days #10 tablet 10/22/18 [Rx] Allergies/Adverse Reactions: Allergy/AdvReac Type Severity Reaction Status Date / Time levofloxacin [From Levaquin] Allergy Anaphylaxis Verified 10/20/18 02:05 ibuprofen AdvReac Rash Verified 08/06/18 13:20 Penicillins [PCN] AdvReac Hives Verified 08/06/18 13:20 prochlorperazine AdvReac Itching Verified 08/06/18 13:20 [From Compazine] propoxyphene AdvReac Hives Verified 08/06/18 13:20 [From Darkirill-N] Sulfa (Sulfonamide AdvReac Hives Verified 08/06/18 13:20 Antibiotics) Date of admission: 10/19/18 14:38 Primary care physician: Maria E Mackey MD Consults: 10/19/18 16:56 Consult to Respiratory Therapy [CONS] Routine Reason for Consult: Measure peak flows every 6 hours Time Notified: 16:57 Call Completed: Yes - Constitutional Vitals: Temp Pulse Resp BP Pulse Ox 98.5 F 63 16 178/80 92 10/22/18 11:00 10/22/18 11:00 10/22/18 11:37 10/22/18 11:37 10/22/18 11:37 General appearance: Present: cooperative, A&O X 3, pleasant, answers questions appropriately Exam: Gen.: Nonacute distress, alert and oriented 3 Respiratory: Decreased airflow with wheezing Skin: Normal color - Patient Status Disposition: Home, Self-Care Condition: Good - Discharge Instructions Instructions: Asthma (DC), Diabetes Mellitus Type 2 in Adults (DC) Follow Up With: Maria E Mackey MD [Primary Care Provider] - 10/29/18 1:15 pm (Please follow up as schedule...)
== END 2018-10-22 15:56 | disposition home or self-care (01) ==
LOC: 2ANU 12:28 → EMEROOARM 12:28 → SUATTDRO 14:38 → 2ANU 15:15
PROVIDERS: ADMIT Internal Medicine; ATTEND Hospitalist

== ENCOUNTER 2019-03-24 09:23 | Observation (INO) ==
--- NOTE | 2019-03-24 09:40 | Emergency Department Note ---
Disposition Clinical Impression: Chest pain Qualifiers: Chest pain type: unspecified Qualified Code(s): R07.9 - Chest pain, unspecified Disposition: Admitted As Inpatient Condition: Fair Time of Disposition: 00:00 (see actual ED d/c time) Chest Pain HPI - General Chief Complaint: ED Chest Pain Stated Complaint: Chest Pain Time Seen by Provider: 03/24/19 09:27 Source: patient Mode of arrival: ambulatory Limitations: no limitations Vital Signs Reviewed: Yes (hypertensive) Nursing Notes Reviewed: Yes - History of Present Illness HPI Narrative: Ms. Archibald is a 49 year old female with history of asthma, COPD, htn, type II diabetes, hld, heart murmur unspecified, and surgical hx of appendectomy, cholecystectomy, hysterectomy who presents to the ED with complaint of sudden midsternal chest pain and sudden radiation to the back that started yesterday evening. Patient reports chest pain feel like pressure and as if someone sitting on her chest. She also reports shortness of breath that started suddenly as well with the chest pain and back pain. Patient reports that she took some of her inhalers and reports no improvement in symptoms, taking a deep breath does not worsen, did take an antacid thinking that she had heartburn and had no improvement in symptoms. Denies fevers, chills, sweats, nausea, vomiting, radiation to arm, new numbness or tingling, lightheadedness, new leg swelling, weakness, cough abdominal pain, changes in bowels or bladder, or rash. Known allergy to Ibuprofen resulted in rash, no trouble breathing or anaphylaxis to it, reported no allergy to aspirin. Severity scale (1-10): 9 - Related Data Home Medications Medication Instructions Recorded Confirmed FLUoxetine HCl [Prozac] 40 mg PO HS 10/19/18 03/24/19 Lansoprazole [Prevacid] 30 mg PO HS 10/19/18 03/24/19 Albuterol Sulfate [Proair Hfa] 2 puff IH QID PRN 03/24/19 03/24/19 Beclomethasone Dipropionate [QVAR 2 puff IH QAM 03/24/19 03/24/19 80 mcg REDIHALER] Glimepiride [Amaryl] 8 mg PO HS 03/24/19 03/24/19 Insulin Regular, Human [Novolin R] 5 unit SQ TIDAC 03/24/19 03/24/19 Ipratropium/Albuterol Sulfate 3 ml IH QID PRN 03/24/19 03/24/19 [Iprat-Albut 0.5-3(2.5) mg/3 ml] Losartan Potassium 100 mg PO HS 03/24/19 03/24/19 Montelukast [Singulair] 10 mg PO HS 03/24/19 03/24/19 Omeprazole [PriLOSEC] 20 mg PO HS 03/24/19 03/24/19 Promethazine [Phenergan] 25 mg PO Q4-8H PRN 03/24/19 03/24/19 Allergies Allergy/AdvReac Type Severity Reaction Status Date / Time levofloxacin [From Levaquin] Allergy Anaphylaxis Verified 03/24/19 09:31 ibuprofen AdvReac Rash Verified 03/24/19 09:31 Penicillins [PCN] AdvReac Hives Verified 03/24/19 09:31 prochlorperazine AdvReac Itching Verified 03/24/19 09:31 [From Compazine] propoxyphene AdvReac Hives Verified 03/24/19 09:31 [From Darvocet-N] Sulfa (Sulfonamide AdvReac Hives Verified 03/24/19 09:31 Antibiotics) Review of Systems: As Per HPI Chest Pain PMH - Past Medical History Medical history: Reports: asthma, COPD, diabetes, hyperlipidemia, hypertension Surgical history: Reports: other (appendectomy, cholecystectomy, hysterectomy) Psychiatric history: Reports: no psych history MERCHANDISE SUPERVISOR history: Reports: no MERCHANDISE SUPERVISOR history - Social History Smoking Status: 2nd Hand Smoke Exposure Alcohol use: Reports: none Drug use: Reports: none Physical Exam - General General appearance: alert, obese, other (mild discomfort, no conversational dyspnea, satting well on room air) - Head Head exam: normocephalic, normal inspection - Eye Eye exam: Present: normal appearance, PERRL, EOMI - ENT ENT exam: normal exam, normal oropharynx, mucous membranes moist - Neck Neck exam: Present: normal inspection, full ROM, trachea midline. Absent: lymphadenopathy - Chest Chest inspection: Present: normal inspection, symmetric chest wall rise, other (no tenderness with palpation of chest or back) - Respiratory Respiratory exam: Present: wheezes, prolonged expiratory phase. Absent: respiratory distress, accessory muscle use - Cardiovascular Cardiovascular exam: Present: regular rate, normal rhythm, normal heart sounds - Abdominal Exam Abdominal exam: Present: soft, normal bowel sounds, other (mild epigastric tenderness with deep palpation, no skin changes). Absent: guarding, rigidity - Extremities Exam Extremities exam: Present: normal inspection, full ROM, normal capillary refill. Absent: tenderness, pedal edema - Back Exam Back exam: Present: normal inspection, full ROM. Absent: tenderness, CVA tenderness (R), CVA tenderness (L) - Neurological Exam Neurological exam: Present: alert, oriented X3 - Psychiatric Psychiatric exam: Present: normal affect, anxious - Skin Skin exam: Present: warm, dry, intact, normal color. Absent: diaphoresis, erythema Course - Reevaluation(s) Reevaluation #1: Still hypertensive. Visited patient, imprvoed shortness of breath and wheezing after breathing treatment. CXR negative. Unable to get CTA at this time, unable to get IV started, still attempting. Still having Chest pain with radiation to back not improved. Time: 11:19 Reevaluation #2: Labs with normal lipase, negative troponin, CBC normal, CMP normal. Epigastric discomfort resolved after gi cocktail. Vital Signs Temperature 98.4 F 03/24/19 09:31 Pulse Rate 72 03/24/19 09:31 Respiratory Rate 18 03/24/19 09:31 Blood Pressure 168/91 03/24/19 09:31 O2 Sat by Pulse Oximetry 95 03/24/19 09:31 Temperature 98.4 F 03/24/19 09:37 Pulse Rate 66 03/24/19 10:47 Respiratory Rate 18 03/24/19 10:47 Blood Pressure 162/54 03/24/19 10:47 O2 Sat by Pulse Oximetry 98 03/24/19 10:47 Oxygen Delivery Oxygen Delivery Room Air Chest Pain - MDM Narrative Medical decision making narrative: 49 year old with complaint of sudden chest pain, shortness of breath, and radiation to the back. Vitals hypertensive, nontachycardic, satting well on room air. Exam unrevealing for other causes of symptoms. EKG without acute st elevations or depressions. Will administer gi cocktail and breathing treatment. Obtain labs, ekg, cxr, and CTA of chest. Ddx including but not limited to aortic dissection, ACS, asthma attack, arrhythmia, PUD. - Lab Data Lab results reviewed: Yes I reviewed the patient's lab results. Lab results narrative: Laboratory Last Values WBC 9.8 K/mcL (4.3-11.1) 03/24/19 09:50 RBC 4.56 M/mcL (3.82-4.97) 03/24/19 09:50 Hgb 12.3 g/dL (11.5-15.4) 03/24/19 09:50 Hct 39.0 % (35.3-44.9) 03/24/19 09:50 MCV 85.5 fL (83.0-100.0) 03/24/19 09:50 MCH 27.0 pg (28.0-33.3) L 03/24/19 09:50 MCHC 31.5 g/dL (31.6-35.5) L 03/24/19 09:50 RDW 13.5 % (11.5-14.5) 03/24/19 09:50 Plt Count 204 K/mcL (140-400) 03/24/19 09:50 MPV 11.1 fL (9.4-12.4) 03/24/19 09:50 Immature Gran % 0.7 % (0-4) 03/24/19 09:50 Seg Neutrophils % 59.4 % 03/24/19 09:50 33.0 % 03/24/19 09:50 4.6 % 03/24/19 09:50 1.9 % 03/24/19 09:50 0.4 % 03/24/19 09:50 5.8 K/mcL (1.6-8.9) 03/24/19 09:50 3.2 K/mcL (0.6-4.6) 03/24/19 09:50 0.5 K/mcL (0.0-1.3) 03/24/19 09:50 0.2 K/mcL (0.0-0.6) 03/24/19 09:50 0.0 K/mcL (0.0-0.2) 03/24/19 09:50 Sodium 139 mEq/L (136-145) 03/24/19 09:50 Potassium 4.0 mEq/L (3.5-5.1) 03/24/19 09:50 Chloride 103 mEq/L (98-107) 03/24/19 09:50 Carbon Dioxide 26 mEq/L (23-29) 03/24/19 09:50 BUN 13 mg/dL (6-20) 03/24/19 09:50 0.59 mg/dL (0.60-1.20) L 03/24/19 09:50 Est GFR ( Amer) > 60 (> 60) 03/24/19 09:50 Est GFR (Non-Af Amer) > 60 (> 60) 03/24/19 09:50 22 (6-26) 03/24/19 09:50 Glucose 109 mg/dL (70-105) H 03/24/19 09:50 289 (280-300) 03/24/19 09:50 Calcium 9.0 mg/dL (8.6-10.3) 03/24/19 09:50 0.4 mg/dL (0.3-1.0) 03/24/19 09:40 0.1 mg/dL (0.0-0.2) 03/24/19 09:40 0.3 mg/dL (0.0-1.2) 03/24/19 09:40 AST 17 Units/L (13-39) 03/24/19 09:40 ALT 19 Units/L (7-52) 03/24/19 09:40 118 Units/L (34-104) H 03/24/19 09:40 < 0.03 ng/mL (< 0.04) 03/24/19 09:50 6.5 g/dL (6.4-8.9) 03/24/19 09:40 4.2 g/dL (3.5-5.7) 03/24/19 09:40 2.3 g/dL (2.4-3.5) L 03/24/19 09:40 1.8 (1.1-2.2) 03/24/19 09:40 29 Units/L (11-82) 03/24/19 09:40 Result diagrams: 03/24/19 09:50 03/25/19 01:15 Lab Results 03/24/19 03/24/19 03/24/19 Range/Units 09:40 09:50 09:50 WBC 9.8 (4.3-11.1) K/mcL RBC 4.56 (3.82-4.97) M/mcL Hgb 12.3 (11.5-15.4) g/dL Hct 39.0 (35.3-44.9) % MCV 85.5 (83.0-100.0) fL MCH 27.0 L (28.0-33.3) pg MCHC 31.5 L (31.6-35.5) g/dL RDW 13.5 (11.5-14.5) % Plt Count 204 (140-400) K/mcL MPV 11.1 (9.4-12.4) fL Immature Gran % 0.7 (0-4) % Seg Neutrophils % 59.4 % Lymphocytes % 33.0 % Monocytes % 4.6 % Eosinophils % 1.9 % Basophils % 0.4 % Neutrophils # 5.8 (1.6-8.9) K/mcL Lymphocytes # 3.2 (0.6-4.6) K/mcL Monocytes # 0.5 (0.0-1.3) K/mcL Eosinophils # 0.2 (0.0-0.6) K/mcL Basophils # 0.0 (0.0-0.2) K/mcL Sodium 139 (136-145) mEq/L Potassium 4.0 (3.5-5.1) mEq/L Chloride 103 (98-107) mEq/L Carbon Dioxide 26 (23-29) mEq/L BUN 13 (6-20) mg/dL Creatinine 0.59 L (0.60-1.20) mg/dL Est GFR ( Amer) > 60 (> 60) Est GFR (Non-Af Amer) > 60 (> 60) BUN/Creatinine Ratio 22 (6-26) Glucose 109 H (70-105) mg/dL Calculated Osmolality 289 (280-300) Calcium 9.0 (8.6-10.3) mg/dL Total Bilirubin 0.4 (0.3-1.0) mg/dL Direct Bilirubin 0.1 (0.0-0.2) mg/dL Indirect Bilirubin 0.3 (0.0-1.2) mg/dL AST 17 (13-39) Units/L ALT 19 (7-52) Units/L Alkaline Phosphatase 118 H (34-104) Units/L Troponin I < 0.03 (< 0.04) ng/mL Serum Total Protein 6.5 (6.4-8.9) g/dL Albumin 4.2 (3.5-5.7) g/dL Globulin 2.3 L (2.4-3.5) g/dL Albumin/Globulin Ratio 1.8 (1.1-2.2) Lipase 29 (11-82) Units/L - Radiology Data Radiology results reviewed: Yes I reviewed the patient's radiology results. Chest X-Ray 03/24/19 09:40 IMPRESSION: No acute abnormality. D/ / Lorenzo Parks MD / Lorenzo Parks MD Interpreting Provider: Lorenzo Parks MD - EKG Data EKG shows normal: sinus rhythm Rate: normal Rhythm: NSR When compared to previous EKG there are: no significant changes Interpretation: no acute changes Heart Score - Score History: Slightly Suspicious EKG: Normal Age: 45-65 Risk Factors: Equal/Greater than 3 risk factor or history of atherosclerotic disease
[2019-03-24] MEDS ORDERED: Ipratropium/Albuterol Neb 3 ML IH ONE (09:42)
[2019-03-24] MEDS ORDERED: GI Cocktail 40 ML EACH PO ONE (09:43)
[2019-03-24] MEDS ORDERED: Aspirin 81 MG TAB.CHEW PO ONE (09:57)
[2019-03-24] MEDS ORDERED: Isovue-370 500 ML BOTTLE IVP ONE (09:59)
[2019-03-24 10:27] LABS: Basophils % 0.4 %; Eosinophils # 0.2 K/mcL (0.0-0.6); Eosinophils % 1.9 %; Hemoglobin 12.3 g/dL (11.5-15.4); Immature Granulocytes % 0.7 % (0-4); Lymphocytes # 3.2 K/mcL (0.6-4.6); Mean Corpuscular HGB Conc 31.5 g/dL (31.6-35.5); Mean Corpuscular Volume 85.5 fL (83.0-100.0); Mean Platelet Volume 11.1 fL (9.4-12.4); Monocytes # 0.5 K/mcL (0.0-1.3); Monocytes % 4.6 %; Neutrophils # 5.8 K/mcL (1.6-8.9); Platelet Count 204 K/mcL (140-400); Red Blood Count 4.56 M/mcL (3.82-4.97); Red Cell Distribution Width 13.5 % (11.5-14.5); Segmented Neutrophils % 59.4 %
--- NOTE | 2019-03-24 10:43 | Emergency Department Note ---
Disposition Clinical Impression: Chest pain Qualifiers: Chest pain type: unspecified Qualified Code(s): R07.9 - Chest pain, unspecified Disposition: Admitted As Inpatient Condition: Fair Time of Disposition: 14:20 General Adult HPI - General Chief complaint: ED Chest Pain Stated complaint: Chest Pain Time Seen by Provider: 03/24/19 09:27 Source: patient Limitations: no limitations - History of Present Illness Pain Scale: 9 - Related Data Home Medications Medication Instructions Recorded Confirmed FLUoxetine HCl [Prozac] 40 mg PO DAILY 10/19/18 10/19/18 Lansoprazole [Prevacid] 30 mg PO DAILY 10/19/18 10/19/18 Lisinopril [Zestril] 10 mg PO DAILY 10/19/18 10/19/18 Metformin HCl 1,000 mg PO BID 10/19/18 10/19/18 Allergies Allergy/AdvReac Type Severity Reaction Status Date / Time levofloxacin [From Levaquin] Allergy Anaphylaxis Verified 03/24/19 09:31 ibuprofen AdvReac Rash Verified 03/24/19 09:31 Penicillins [PCN] AdvReac Hives Verified 03/24/19 09:31 prochlorperazine AdvReac Itching Verified 03/24/19 09:31 [From Compazine] propoxyphene AdvReac Hives Verified 03/24/19 09:31 [From Darvocet-N] Sulfa (Sulfonamide AdvReac Hives Verified 03/24/19 09:31 Antibiotics) Past Medical History - Past Medical History Medical history: Reports: asthma, COPD, diabetes, hyperlipidemia, hypertension Surgical history: Reports: other (appendectomy, cholecystectomy, hysterectomy) Psychiatric history: Reports: no psych history RN CIRCULATING history: Reports: no RN CIRCULATING history - Social History Smoking Status: Never smoker Smokeless Tobacco Status: No Alcohol use: Reports: none Drug use: Reports: none Physical Exam - General Limitations: no limitations General appearance: alert, obese, other (mild discomfort, no conversational dyspnea, satting well on room air) Course Vital Signs Temperature 98.4 F 03/24/19 09:31 Pulse Rate 72 03/24/19 09:31 Respiratory Rate 18 03/24/19 09:31 Blood Pressure 168/91 03/24/19 09:31 O2 Sat by Pulse Oximetry 95 03/24/19 09:31 Temperature 98.4 F 03/24/19 09:37 Pulse Rate 66 03/24/19 13:11 Respiratory Rate 18 03/24/19 13:11 Blood Pressure 135/69 03/24/19 13:11 O2 Sat by Pulse Oximetry 94 03/24/19 13:11 Oxygen Delivery Oxygen Delivery Room Air Medical Decision Making - Medical Records Medical records reviewed: Yes I reviewed the patient's medical records. - Lab Data Lab results reviewed: Yes I reviewed the patient's lab results. Result diagrams: 03/24/19 09:50 03/24/19 09:50 Lab Results 03/24/19 03/24/19 03/24/19 Range/Units 09:40 09:50 09:50 WBC 9.8 (4.3-11.1) K/mcL RBC 4.56 (3.82-4.97) M/mcL Hgb 12.3 (11.5-15.4) g/dL Hct 39.0 (35.3-44.9) % MCV 85.5 (83.0-100.0) fL MCH 27.0 L (28.0-33.3) pg MCHC 31.5 L (31.6-35.5) g/dL RDW 13.5 (11.5-14.5) % Plt Count 204 (140-400) K/mcL MPV 11.1 (9.4-12.4) fL Immature Gran % 0.7 (0-4) % Seg Neutrophils % 59.4 % Lymphocytes % 33.0 % Monocytes % 4.6 % Eosinophils % 1.9 % Basophils % 0.4 % Neutrophils # 5.8 (1.6-8.9) K/mcL Lymphocytes # 3.2 (0.6-4.6) K/mcL Monocytes # 0.5 (0.0-1.3) K/mcL Eosinophils # 0.2 (0.0-0.6) K/mcL Basophils # 0.0 (0.0-0.2) K/mcL Sodium 139 (136-145) mEq/L Potassium 4.0 (3.5-5.1) mEq/L Chloride 103 (98-107) mEq/L Carbon Dioxide 26 (23-29) mEq/L BUN 13 (6-20) mg/dL Creatinine 0.59 L (0.60-1.20) mg/dL Est GFR ( Amer) > 60 (> 60) Est GFR (Non-Af Amer) > 60 (> 60) BUN/Creatinine Ratio 22 (6-26) Glucose 109 H (70-105) mg/dL Calculated Osmolality 289 (280-300) Calcium 9.0 (8.6-10.3) mg/dL Total Bilirubin 0.4 (0.3-1.0) mg/dL Direct Bilirubin 0.1 (0.0-0.2) mg/dL Indirect Bilirubin 0.3 (0.0-1.2) mg/dL AST 17 (13-39) Units/L ALT 19 (7-52) Units/L Alkaline Phosphatase 118 H (34-104) Units/L Troponin I < 0.03 (< 0.04) ng/mL Serum Total Protein 6.5 (6.4-8.9) g/dL Albumin 4.2 (3.5-5.7) g/dL Globulin 2.3 L (2.4-3.5) g/dL Albumin/Globulin Ratio 1.8 (1.1-2.2) Lipase 29 (11-82) Units/L 03/24/19 Range/Units 12:37 WBC (4.3-11.1) K/mcL RBC (3.82-4.97) M/mcL Hgb (11.5-15.4) g/dL Hct (35.3-44.9) % MCV (83.0-100.0) fL MCH (28.0-33.3) pg MCHC (31.6-35.5) g/dL RDW (11.5-14.5) % Plt Count (140-400) K/mcL MPV (9.4-12.4) fL Immature Gran % (0-4) % Seg Neutrophils % % Lymphocytes % % Monocytes % % Eosinophils % % Basophils % % Neutrophils # (1.6-8.9) K/mcL Lymphocytes # (0.6-4.6) K/mcL Monocytes # (0.0-1.3) K/mcL Eosinophils # (0.0-0.6) K/mcL Basophils # (0.0-0.2) K/mcL Sodium (136-145) mEq/L Potassium (3.5-5.1) mEq/L Chloride (98-107) mEq/L Carbon Dioxide (23-29) mEq/L BUN (6-20) mg/dL Creatinine (0.60-1.20) mg/dL Est GFR ( Amer) (> 60) Est GFR (Non-Af Amer) (> 60) BUN/Creatinine Ratio (6-26) Glucose (70-105) mg/dL Calculated Osmolality (280-300) Calcium (8.6-10.3) mg/dL Total Bilirubin (0.3-1.0) mg/dL Direct Bilirubin (0.0-0.2) mg/dL Indirect Bilirubin (0.0-1.2) mg/dL AST (13-39) Units/L ALT (7-52) Units/L Alkaline Phosphatase (34-104) Units/L Troponin I < 0.03 (< 0.04) ng/mL Serum Total Protein (6.4-8.9) g/dL Albumin (3.5-5.7) g/dL Globulin (2.4-3.5) g/dL Albumin/Globulin Ratio (1.1-2.2) Lipase (11-82) Units/L - Radiology Data Radiology results reviewed: Yes I reviewed the patient's radiology results. Attestation Statement - Attestation Attestation: I examined this patient and my medical decision-making was reviewed with the ADULT LIVE IN CAREGIVER/PA/Advanced Practice Nurse/Resident Physician. I agree with the documented findings, disposition and treatment plan as described except to the extent set forth below. I did see the patient is spoke with her and examined her and she does have chest pain which started last night and radiates the back with associated dyspnea and she does not have any pleuritic aspect and I did review her EKG which shows normal sinus rhythm with a rate of 70 without acute ischemic changes or evidence of arrhythmia and I did compare this to previous EKG. I did review her past record. Concern for ACS as well as for aortic dissection so in addition to our labs which are being done here and monitoring a CTA will be done to further evaluate for possible dissection. Results are pending. She is bright and alert and nontoxic in appearance. Conversational. Skin color is warm and dry. No diaphoresis. No difficulty breathing. 1043 We did repeat the EKG as the patient is having ongoing pain and the second EKG is done at 1229 and shows normal sinus rhythm with a rate of 67 without acute ischemic change and there is some T-wave flattening in lead aVL and the second troponin also came back negative. I have seen the patient on the second me dication. She did go into a trigeminy rhythm and because of that and the ongoing pain and her heart score of 5 the patient will be admitted to the hospital and this because the hospitalist accepts the patient for admission. 1411
[2019-03-24 10:47] LABS: Albumin 4.2 g/dL (3.5-5.7); Albumin/Globulin Ratio 1.8 (1.1-2.2); Bilirubin,Direct 0.1 mg/dL (0.0-0.2); Bilirubin,Indirect 0.3 mg/dL (0.0-1.2); Bilirubin,Total 0.4 mg/dL (0.3-1.0); Globulin 2.3 g/dL (2.4-3.5); Total Protein 6.5 g/dL (6.4-8.9)
[2019-03-24 10:48] LABS: BUN/Creatinine Ratio 22 (6-26); Blood Urea Nitrogen 13 mg/dL (6-20); Carbon Dioxide 26 mEq/L (23-29); Chloride 103 mEq/L (98-107); Glucose 109 mg/dL (70-105); Osmolality,Calculated 289 (280-300); Sodium 139 mEq/L (136-145); eGFR For Non-African Americans > 60 (> 60)
[2019-03-24 10:49] LABS: Troponin I < 0.03 ng/mL (< 0.04)
--- NOTE | 2019-03-24 12:35 | Electrocardiograph Report ---
[place] [facility] Test Date: 2019-03-24 Pat Name: Pedro Archibald Department: [id number] Room: Gender: F Natural Resources Technician: : 1970 Requested By: Narayan Mark Order Number: [id number] Reading MD: Eh Montoya Measurements Intervals [place] Rate: 70 P: 35 ND: 134 QRS: -25 QRSD: 95 T: 70 QT: 388 QTc: 419 Interpretive Statements Sinus rhythm Ventricular premature complex Probable left ventricular hypertrophy Electronically Signed On 03-24-2019 12:33:38 EDT by Eh Montoya
[2019-03-24] MEDS ORDERED: Ondansetron 4 MG/2 ML VIAL IVP PRN (15:33)
[2019-03-24] MEDS ORDERED: Naloxone 0.4 MG/ML INJ IVP PRN (15:33)
[2019-03-24] MEDS ORDERED: *HR* Dextrose 50 % in Water (Syg) 50 ML SYRINGE IVP PRN (15:39)
[2019-03-24] MEDS ORDERED: Dextrose Gel 15 GM/37.5 ML TUBE PO PRN ×2 (15:39)
[2019-03-24] MEDS ORDERED: D5% in Water 1,000 ML IVC PRN (15:39)
--- NOTE | 2019-03-24 16:14 | Internal Med History&Physical ---
Date of Encounter: 03/24/19 Time of Encounter: 16:12 Internal Medicine - H&P: HPI Chief complaint: CP Admitted From: Emergency Dept Plans for Post Hospital Care: Home History of present illness: Ms. Archibald is a 49 year old female astragal history of COPD asthma hypotension type 2 diabetes hyperlipidemia heart murmur. Presented to [facility] with complaints of sudden onset midsternal chest pain that radiated to her shoulder blades started last night prior to going to bed she thought it was acid reflux and took some medication without any improvement. Pain continued throughout the night radiating to her shoulder blades associated symptoms of nausea shortness of breath and lightheadedness she presented to the ER the above complaints lab work was unremarkable chest x-ray no acute process CT dissection was negative he was given GI cocktail in the ER which did resolve epigastric discomfort. EKG with no ST-T wave abnormalities She was admitted for further work up and evaluation currently patient complains of some midsternal chest pressure she rates 7 out 10 denies any other pain or discomfort and she is hemodynamically stable this time Past Med Surg Social Fam HX - Past Medical History Medical history: asthma, COPD, diabetes, hyperlipidemia, hypertension Psychiatric history: no psych history - Past Surgical History Surgical History: other (appendectomy, cholecystectomy, hysterectomy) - Social History Smoking Status: Never smoker Smokeless Tobacco Status: No Alcohol use: none Drug use: none - Family History Mother Hx Family Endocrine Disorder: Yes (Hypothyroidism) Father Hx Family Cardiac Disorders: Yes (Lower extremity swelling) Hx Family Endocrine Disorder: Yes (Hypothyroidism) Internal Medicine - H&P: Meds FLUoxetine HCl [Prozac] 40 mg PO DAILY 10/19/18 [History] Lansoprazole [Prevacid] 30 mg PO DAILY 10/19/18 [History] Lisinopril [Zestril] 10 mg PO DAILY 10/19/18 [History] Metformin HCl 1,000 mg PO BID 10/19/18 [History] Beclomethasone Dip 40mcg REDIH [Qvar 40 mcg REDIHALER] 1 puff IH 03/24/19 [History] Glimepiride [Amaryl] 4 mg PO 03/24/19 [History] Insulin Human Regular [HumuLIN R] 5 unit SQ TID 03/24/19 [History] Losartan Potassium 100 mg PO DAILY 03/24/19 [History] Montelukast [Singulair] 10 mg PO DAILY 03/24/19 [History] Omeprazole [PriLOSEC] 20 mg PO DAILY 03/24/19 [History] Allergy/AdvReac Type Severity Reaction Status Date / Time levofloxacin [From Levaquin] Allergy Anaphylaxis Verified 03/24/19 09:31 ibuprofen AdvReac Rash Verified 03/24/19 09:31 Penicillins [PCN] AdvReac Hives Verified 03/24/19 09:31 prochlorperazine AdvReac Itching Verified 03/24/19 09:31 [From Compazine] propoxyphene AdvReac Hives Verified 03/24/19 09:31 [From Darvocet-N] Sulfa (Sulfonamide AdvReac Hives Verified 03/24/19 09:31 Antibiotics) All Systems PM: A 10-system review of systems was performed and is negative for pertinent findings except as documented above in the HPI. - Constitutional Constitutional: no chills, no fever(s), no night sweats - EENT Eyes: no change in vision, no discharge, no pain, no photophobia Ears: no ear discharge, no ear pain, no tinnitus Nose, mouth and throat: no dysphagia, no nasal discharge, no neck pain, no sore throat - Cardiovascular Cardiovascular ROS IM: palpitations, no chest pain, no diaphoresis, no dyspnea, no lightheadedness, no syncope - Respiratory Respiratory: no cough, no dyspnea, no wheezing, no excessive phlegm production - Gastrointestinal Gastrointestinal: no abdominal pain, no diarrhea, no hematemesis, no hematochezia, no melena, no nausea, no vomiting - Genitourinary Genitourinary: no change in urinary stream, no dysuria, no flank pain, no hematuria - Musculoskeletal Musculoskeletal ROS IM: no numbness, no tingling - Integumentary Integumentary IM: no rash, no unusual bruising - Neurological Neurological ROS: no confusion, no convulsions, no focal weakness, no numbness, no tingling, no tremor(s) - Hematologic/Lymphatic Hematologic/Lymphatic: no easy bruising - Constitutional Vitals: Temp Pulse Resp BP Pulse Ox 98.6 F 76 16 160/88 95 03/24/19 15:30 03/24/19 15:30 03/24/19 15:30 03/24/19 15:30 03/24/19 15:30 General appearance: Present: A&O X 3 Exam: . - Head Head exam: Present: atraumatic, normocephalic - Eye Eye exam: Present: PERRL, conjuntiva pink, sclera anicteric Pupils: Present: PERRL - Neck Neck exam general surgery: Present: supple, trachea midline. Absent: lymphadenopathy - Respiratory Respiratory exam: Present: CTAB. Absent: accessory muscle use, rales, rhonchi, wheezes - Cardiovascular Cardiovascular exam: Present: RRR, +S1, +S2, systolic murmur. Absent: diastolic murmur, gallop, rubs - GI/Abdominal GI/Abdominal exam: Present: normal bowel sounds, soft, no peritoneal signs. Absent: distended, tenderness - Extremities Exam Extremities exam: Present: warm, radial pulses palpable and symmetrical. Absent: calf tenderness, cyanotic, pedal edema - Neurological Exam Neurological exam: Present: CN II-XII intact, oriented X3, no focal deficits. Absent: pronater drift, facial droop, speech deficit - Skin Skin exam: Present: dry, intact Internal Med - H&P Results - Labs CBC & Chem 7: 03/24/19 09:50 03/24/19 09:50 Labs: Short CBC 03/24/19 Range/Units 09:50 WBC 9.8 (4.3-11.1) K/mcL Hgb 12.3 (11.5-15.4) g/dL Hct 39.0 (35.3-44.9) % Plt Count 204 (140-400) K/mcL Neutrophils # 5.8 (1.6-8.9) K/mcL BMP 03/24/19 09:50 Sodium 139 Potassium 4.0 Chloride 103 Carbon Dioxide 26 BUN 13 Creatinine 0.59 L Glucose 109 H Calcium 9.0 Cardiac Enzymes 03/24/19 03/24/19 Range/Units 09:50 12:37 Troponin I < 0.03 < 0.03 (< 0.04) ng/mL Liver Function 03/24/19 Range/Units 09:40 Total Bilirubin 0.4 (0.3-1.0) mg/dL Direct Bilirubin 0.1 (0.0-0.2) mg/dL AST 17 (13-39) Units/L ALT 19 (7-52) Units/L Alkaline Phosphatase 118 H (34-104) Units/L Albumin 4.2 (3.5-5.7) g/dL - Impressions ITS Impressions Chest X-Ray 03/24/19 09:40 IMPRESSION: No acute abnormality. D/ / Lorenzo Parks MD / Lorenzo Parks MD Interpreting Provider: Lorenzo Parks MD Dissection 03/24/19 09:59 IMPRESSION: 1. No evidence for thoracic or abdominal aorta aneurysm or dissection. 2. No acute osseous abnormality. 3. No acute infective or inflammatory process. D/ / Regino Goodman MD / Regino Goodman MD Interpreting Provider: Regino Goodman MD - Assessment and Plan (1) Chest pain Current Visit: Yes Status: Acute Assessment and plan: Presented to ER after sprints an onset of midsternal chest pain radiating to her shoulder blades pain occurring at rest with no aggravating or relieving factors. No past cardiac history she has not had a past cardiac workup. Risk factors morbidly obese with a history of hypertension diabetes and hyperlipidemia cardiac family history. Troponins are negative 2 we will continue to cycle EKG with no ischemic changes continue to monitor Continuous cardiac monitoring Check lipid profile in a.m. Continue with statins Continue with aspirin Nitroglycerin as needed for chest pain Obtain cardiac echo Patient will be nothing by mouth after midnight Cardiac stress test in the a.m. Consult cardiology if needed Qualifiers: Chest pain type: unspecified Qualified Code(s): R07.9 - Chest pain, unspecified (2) DVT prophylaxis Current Visit: No Status: Acute Assessment and plan: Heparin subcutaneous (3) Hypertension Current Visit: No Status: Acute Assessment and plan: Continue with home medications Qualifiers: Hypertension type: essential hypertension Qualified Code(s): I10 - Essential (primary) hypertension (4) Type 2 diabetes mellitus Current Visit: No Status: Acute Assessment and plan: Hold oral medications for now Accu-Cheks before meals at bedtime with sliding scale insulin Qualifiers: Diabetes mellitus intermediate insulin use: without terminal make up operator use Diabetes mellitus complication status: without complication Qualified Code(s): E11.9 - Type 2 diabetes mellitus without complications - Time Spent With Patient Total time spent is greater than 50% in coordination of care (as documented) at patient's floor/unit and/or counseling patient:
[2019-03-24] MEDS ORDERED: Nitroglycerin 0.4 MG TAB.SUBL SL PRN (16:22)
[2019-03-24] MEDS: Insulin LISPRO 300 UNITS/3 ML VIAL SQ SCH ×2 (18:10→21:13)
[2019-03-24] MEDS ORDERED: Perflutren Lipid Microsphere 1.3 ML in 0.9 % Sodium Chloride 8.7 ML IVP ONE (19:11)
[2019-03-24] MEDS: Acetaminophen 325 MG TABLET PO PRN (19:39)
[2019-03-24] MEDS ORDERED: traMADol 50 MG TABLET PO ONE (20:57)
[2019-03-25 01:48] LABS: BUN/Creatinine Ratio 25 (6-26); Blood Urea Nitrogen 14 mg/dL (6-20); Calcium 8.9 mg/dL (8.6-10.3); Carbon Dioxide 28 mEq/L (23-29); Chloride 104 mEq/L (98-107); Chol/HDL Ratio 5.1 (0-4.9); Cholesterol 209 mg/dL (< 200); Glucose 126 mg/dL (70-105); HDL Cholesterol 41 mg/dL (40-59); LDL Cholesterol,Calculated 139 mg/dL (0-99); Osmolality,Calculated 290 (280-300); Potassium 3.9 mEq/L (3.5-5.1); Sodium 139 mEq/L (136-145); Triglycerides 147 mg/dL (< 150); eGFR For Non-African Americans > 60 (> 60)
[2019-03-25] MEDS ORDERED: Regadenoson 0.4 MG/5 ML SYRINGE IVP ONE (06:22)
[2019-03-25] MEDS: FLUoxetine 20 MG CAPSULE PO SCH (09:29)
[2019-03-25] MEDS: Aspirin 81 MG TAB.CHEW PO SCH (09:30)
[2019-03-25] MEDS: Insulin LISPRO 300 UNITS/3 ML VIAL SQ SCH ×3 (09:30→16:51)
--- NOTE | 2019-03-25 10:23 | Electrocardiograph Report ---
[facility] Test Date: 2019-03-24 Pat Name: Pedro Archibald Department: [id number] Room: 3B43 Gender: F Sawyer Helper: : 1970 Requested By: Andres Barbosa Order Number: [id number] Reading MD: Eh Montoya Measurements Intervals [place] Rate: 67 P: 24 TN: 143 QRS: -19 QRSD: 101 T: 64 QT: 419 QTc: 443 Interpretive Statements Sinus rhythm Probable left ventricular hypertrophy Electronically Signed On 03-25-2019 10:21:21 EDT by Eh Montoya
--- NOTE | 2019-03-25 15:50 | Internal Med Progress Note ---
Hospitalist Progress Note - Encounter Date of Encounter: 03/25/19 Time of Encounter: 15:47 - Subjective Interval History: Patient was seen and examined at bedside currently completed first Of 2 day stress test. Currently denies any chest pain or discomfort. - Exam Vitals: Temp Pulse Resp BP Pulse Ox 98.4 F 73 18 164/72 93 03/25/19 11:38 03/25/19 11:38 03/25/19 11:38 03/25/19 11:38 03/25/19 11:38 Exam: Skin: Free of rash and discoloration. Eyes: Sclera is white. There is no discharge from eyes. ENMT: Oral/pharyngeal mucosa is normal in appearance. There is no discharge from nose or ears. Respiratory: Normal breath sounds with no crackles and wheezes bilaterally. CV: Heart is regular with no gallop or murmur. GI: Abdomen is flat and soft with no palpable mass or visceromegaly. : There is no tenderness in patient's flanks bilaterally. Neuro exam: He has good strength in upper and lower extremities. He has normal eye movements. Psychiatric: He has normal affect. His thought process is appropriate to the situation. - Assessment and Plan (1) Chest pain Current Visit: Yes Status: Acute Assessment and Plan: Presented to ER after sprints an onset of midsternal chest pain radiating to her shoulder blades pain occurring at rest with no aggravating or relieving factors. No past cardiac history she has not had a past cardiac workup. Risk factors morbidly obese with a history of hypertension diabetes and hyperlipidemia cardiac family history. Troponins are negative 3 EKG with no ischemic changes continue to monitor Continuous cardiac monitoring Check lipid profile in a.m. Continue with statins Continue with aspirin Nitroglycerin as needed for chest pain Patient will be nothing by mouth after midnight Second-half Cardiac stress test in the a.m. Consult cardiology if needed Cardiac echo Impressions: LVEF 60-65%. Normal LV chamber size and systolic function. Moderate concentric left ventricular hypertrophy. (2) DVT prophylaxis Current Visit: No Status: Acute Assessment and Plan: Heparin subcutaneous (3) Hypertension Current Visit: No Status: Acute Assessment and Plan: Continue with home medications (4) Type 2 diabetes mellitus Current Visit: No Status: Acute Assessment and Plan: Hold oral medications for now Accu-Cheks before meals at bedtime with sliding scale insulin - Time Spent with Patient Total time spent is greater than 50% in coordination of care (as documented) at patient's floor/unit and/or counseling patient: Internal Medicine: Result - Labs CBC & Chem 7: 03/24/19 09:50 03/25/19 01:15 Labs: BMP 03/25/19 01:15 Sodium 139 Potassium 3.9 Chloride 104 Carbon Dioxide 28 BUN 14 Creatinine 0.56 L Glucose 126 H Calcium 8.9 Cardiac Enzymes 03/24/19 03/25/19 Range/Units 17:34 01:15 Troponin I < 0.03 < 0.03 (< 0.04) ng/mL - Impressions Impressions Echocardiogram Limited Views 03/24/19 16:01 Impressions: LVEF 60-65%. Normal LV chamber size and systolic function. Moderate concentric left ventricular hypertrophy. Left Ventricular Wall Motion: Rest Echo Findings All wall segments showed normal motion. Findings: Study Quality * Technically adequate exam. ECG Findings * Normal sinus rhythm. Left Ventricle * LVEF 60-65%. * Moderate concentric left ventricular hypertrophy. * Normal LV chamber size and systolic function. Consult Discharge Plan - Plan Referrals: Maria E Mackey MD [Primary Care Provider] - (1) Chest pain Qualifiers: Chest pain type: unspecified Qualified Code(s): R07.9 - Chest pain, unspecified (3) Hypertension Qualifiers: Hypertension type: essential hypertension Qualified Code(s): I10 - Essential (primary) hypertension (4) Type 2 diabetes mellitus Qualifiers: Diabetes mellitus prison insulin use: without activities specialist use Diabetes mellitus complication status: without complication Qualified Code(s): E11.9 - Type 2 diabetes mellitus without complications
[2019-03-25] MEDS ORDERED: Ipratropium/Albuterol Neb 3 ML IH ONE (21:27)
[2019-03-26] MEDS: Insulin LISPRO 300 UNITS/3 ML VIAL SQ SCH ×3 (05:26→10:49)
[2019-03-26] MEDS: Aspirin 81 MG TAB.CHEW PO SCH (07:42)
[2019-03-26] MEDS: FLUoxetine 20 MG CAPSULE PO SCH (07:42)
[2019-03-26] MEDS: Acetaminophen 325 MG TABLET PO PRN (07:43)
[2019-03-26 10:39] VITALS: BP 150/74
--- NOTE | 2019-03-26 13:06 | Discharge Summary ---
- NOTES TO OUTPATIENT PROVIDER Notes to Outpatient Provider: Presented with chest pain underwent stress test which was negative for any ischemia or infarct Had elevation in BP added HCTz advised patient to monitor BP and keep log Orders not resulted at time of discharge: Pending orders 03/25/19 05:00 NM soledad perf SPECT multi [NM] Routine 03/25/19 06:00 ECG 12 lead ECG [ECG] AM 0600 Date of Encounter: 03/26/19 Time of Encounter: 12:58 - Discharge Diagnosis (1) Chest pain Priority: Primary Status: Acute Qualifiers: Chest pain type: unspecified Qualified Code(s): R07.9 - Chest pain, unspecified (2) Hypertension Priority: Secondary Status: Acute Qualifiers: Hypertension type: essential hypertension Qualified Code(s): I10 - Essential (primary) hypertension (3) Type 2 diabetes mellitus Priority: Secondary Status: Acute Qualifiers: 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 Archibald is a 49 year old female past medical history COPD asthma hypertension type 2 diabetes hyperlipidemia heart murmur presented to [facility] ED wi th complaints of midsternal chest pain at rate her shoulder blades started prior to her going to bed patient that was acid reflux and took the medication without any improvement. Pain continued and radiated between her shoulders with associated symptoms of shortness of breath or lightheadedness. Lab work was unremarkable troponins negative 3 chest x-ray no acute process CT dissection was negative she was given GI cocktail which did resolve epigastric discomfort EKG with no ST-T wave abnormalities cardiac echo [place] EF [place] 6065% normal LV chamber size and systolic function moderate concentric left hypertrophy. Patient underwent a cardiac stress test which was negative for any ischemia or infarct. She did have some hypertension added hydrochlorothiazide advised patient to monitor blood pressure and keep a log. Patient has been chest pain- free. She is complaining of headache which we will medicate once headache resolves she will be discharged home Discharge discussed with: patient - Time Spent with Patient Total time spent providing and/or coordinating discharge services: - Discharge Medications Prescriptions: New hydroCHLOROthiazide [Hydrochlorothiazide] 12.5 mg PO DAILY #15 tablet Continued Lansoprazole [Prevacid] 30 mg PO HS FLUoxetine HCl [Prozac] 40 mg PO HS Omeprazole [PriLOSEC] 20 mg PO HS Losartan Potassium 100 mg PO HS Montelukast [Singulair] 10 mg PO HS Glimepiride [Amaryl] 8 mg PO HS Albuterol Sulfate [Proair Hfa] 2 puff IH QID PRN PRN Reason: Shortness Of Breath Beclomethasone Dipropionate [QVAR 80 mcg REDIHALER] 2 puff IH QAM Insulin Regular, Human [Novolin R] 5 unit SQ TIDAC Promethazine [Phenergan] 25 mg PO Q4-8H PRN PRN Reason: NAUSEA/VOMITING No Action Ipratropium/Albuterol Sulfate [Iprat-Albut 0.5-3(2.5) mg/3 ml] 3 ml IH QID PRN PRN Reason: Shortness Of Breath Home Medications: FLUoxetine HCl [Prozac] 40 mg PO HS 10/19/18 [History] Lansoprazole [Prevacid] 30 mg PO HS 10/19/18 [History] Albuterol Sulfate [Proair Hfa] 2 puff IH QID PRN 03/24/19 [History] Beclomethasone Dipropionate [QVAR 80 mcg REDIHALER] 2 puff IH QAM 03/24/19 [History] Glimepiride [Amaryl] 8 mg PO HS 03/24/19 [History] Insulin Regular, Human [Novolin R] 5 unit SQ TIDAC 03/24/19 [History] Ipratropium/Albuterol Sulfate [Iprat-Albut 0.5-3(2.5) mg/3 ml] 3 ml IH QID PRN 03/24/19 [History] Losartan Potassium 100 mg PO HS 03/24/19 [History] Montelukast [Singulair] 10 mg PO HS 03/24/19 [History] Omeprazole [PriLOSEC] 20 mg PO HS 03/24/19 [History] Promethazine [Phenergan] 25 mg PO Q4-8H PRN 03/24/19 [History] hydroCHLOROthiazide [Hydrochlorothiazide] 12.5 mg PO DAILY #15 tablet 03/26/19 [Rx] Allergies/Adverse Reactions: Allergy/AdvReac Type Severity Reaction Status Date / Time [facility] Allergy Anaphylaxis Verified 03/24/19 09:31 ibuprofen AdvReac Rash Verified 03/24/19 09:31 Penicillins [PCN] AdvReac Hives Verified 03/24/19 09:31 prochlorperazine AdvReac Itching Verified 03/24/19 09:31 [From Compazine] propoxyphene AdvReac Hives Verified 03/24/19 09:31 [From Darvocet-N] Sulfa (Sulfonamide AdvReac Hives Verified 03/24/19 09:31 Antibiotics) Date of admission: 03/24/19 14:03 Primary care physician: Maria E Mackey MD Discharging clinician: Maria C Riggs Anticipated date of discharge: 03/26/19 - Constitutional Vitals: Temp Pulse Resp BP Pulse Ox 98.3 F 64 16 150/74 93 03/26/19 10:34 03/26/19 10:34 03/26/19 10:34 03/26/19 10:34 03/26/19 10:34 General appearance: Present: A&O X 3 Exam: Skin: Free of rash and discoloration.- Morbid obesity Eyes: Sclera is white. There is no discharge from eyes. ENMT: Oral/pharyngeal mucosa is normal in appearance. There is no discharge from nose or ears. Respiratory: Normal breath sounds with no crackles and wheezes bilaterally. CV: Heart is regular with no gallop or murmur. GI: Abdomen is flat and soft with no palpable mass or visceromegaly. : There is no tenderness in patient's flanks bilaterally. Neuro exam: He has good strength in upper and lower extremities. He has normal eye movements. Psychiatric: He has normal affect. His thought process is appropriate to the situation. - Patient Status Disposition: Home, Self-Care Condition: Fair Functional capacity at discharge: independent ambulation Overall status at discharge: patient is back to baseline - Discharge Instructions Follow Up With: Maria E Mackey MD [Primary Care Provider] - - Diet and Activity Activity: increase activity as tolerated Diet: advance to your usual diet
[2019-03-26] MEDS ORDERED: hydroCHLOROthiazide 25 MG TABLET PO SCH (13:15)
[2019-03-26] MEDS ORDERED: traMADol 50 MG TABLET PO PRN (13:23)
[2019-03-26] MEDS ORDERED: *HR* Promethazine 25 MG/ML VIAL IM ONE (13:23)
== END 2019-03-26 15:54 | disposition home or self-care (01) ==
LOC: EMEROOARM 09:23 → 3BNU 09:23
PROVIDERS: ADMIT Internal Medicine Nephrology; ATTEND Internal Medicine Nephrology

== ENCOUNTER 2019-06-12 16:21 | Observation (INO) ==
[2019-06-12] MEDS ORDERED: methylPREDNISolone 125 MG/2 ML VIAL IVP ONE (16:36)
[2019-06-12] MEDS ORDERED: Ipratropium/Albuterol Neb 3 ML IH ONE (16:36)
[2019-06-12] MEDS ORDERED: 0.9 % Sodium Chloride 1,000 ML IVC ONE (16:38)
[2019-06-12 17:19] LABS: Basophils # 0.1 K/mcL (0.0-0.2); Basophils % 0.4 %; Eosinophils # 0.2 K/mcL (0.0-0.6); Eosinophils % 1.7 %; Hematocrit 37.6 % (35.3-44.9); Hemoglobin 12.6 g/dL (11.5-15.4); Immature Granulocytes % 0.6 % (0-4); Lymphocytes # 3.3 K/mcL (0.6-4.6); Lymphocytes % 29.2 %; Mean Corpuscular HGB Conc 33.5 g/dL (31.6-35.5); Mean Corpuscular Hemoglobin 27.5 pg (28.0-33.3); Mean Corpuscular Volume 81.9 fL (83.0-100.0); Monocytes # 0.7 K/mcL (0.0-1.3); Monocytes % 5.8 %; Platelet Count 263 K/mcL (140-400); Red Blood Count 4.59 M/mcL (3.82-4.97); Red Cell Distribution Width 13.4 % (11.5-14.5); Segmented Neutrophils % 62.3 %; White Blood Count 11.3 K/mcL (4.3-11.1)
[2019-06-12 17:33] LABS: BUN/Creatinine Ratio 24 (6-26); Blood Urea Nitrogen 16 mg/dL (6-20); Carbon Dioxide 22 mEq/L (23-29); Chloride 102 mEq/L (98-107); Glucose 148 mg/dL (70-105); Osmolality,Calculated 286 (280-300); Sodium 136 mEq/L (136-145); Troponin I < 0.03 ng/mL (< 0.04); eGFR For African Americans > 60 (> 60); eGFR For Non-African Americans > 60 (> 60)
[2019-06-12] MEDS ORDERED: Albuterol 2.5 MG/3 ML NEBULIZER IH ONE (18:01)
[2019-06-12] MEDS ORDERED: Azithromycin 500 MG in D5% in Water 250 ML IVPB ONE (18:16)
[2019-06-12] MEDS ORDERED: Acetaminophen 325 MG TABLET PO ONE (19:16)
[2019-06-12] MEDS ORDERED: Naloxone 0.4 MG/ML INJ IVP PRN (22:13)
[2019-06-12] MEDS ORDERED: Albuterol 2.5 MG/3 ML NEBULIZER IH PRN (22:16)
[2019-06-12] MEDS: Azithromycin 500 MG in D5% in Water 250 ML IVPB SCH (22:50)
[2019-06-12] MEDS ORDERED: Dextrose Gel 15 GM/37.5 ML TUBE PO PRN ×2 (23:00)
[2019-06-12] MEDS ORDERED: D5% in Water 1,000 ML IVC PRN (23:00)
[2019-06-12] MEDS ORDERED: *HR* Dextrose 50 % in Water (Syg) 50 ML SYRINGE IVP PRN (23:00)
[2019-06-12] MEDS: Ipratropium/Albuterol Neb 3 ML IH SCH (23:47)
[2019-06-13] MEDS ORDERED: Ondansetron 4 MG/2 ML VIAL IVP PRN (03:02)
[2019-06-13] MEDS ORDERED: Acetaminophen 325 MG TABLET PO PRN (03:09)
[2019-06-13] MEDS ORDERED: *HR* HYDROcodone/Acet 5/325 mg TABLET PO PRN (03:09)
[2019-06-13] MEDS: Ipratropium/Albuterol Neb 3 ML IH SCH ×4 (04:11→22:08)
[2019-06-13] MEDS ORDERED: Ketorolac 15 MG/ML VIAL IVP ONE (04:57)
[2019-06-13] MEDS ORDERED: *HR* Promethazine 25 MG/ML VIAL IVP PRN (04:58)
[2019-06-13] MEDS: *HR* Heparin 5,000 UNIT/ML VIAL SQ SCH ×2 (05:43→17:00)
[2019-06-13 05:52] LABS: Hematocrit 38.1 % (35.3-44.9); Hemoglobin 12.2 g/dL (11.5-15.4); Mean Corpuscular Hemoglobin 27.5 pg (28.0-33.3); Mean Corpuscular Volume 85.8 fL (83.0-100.0); Mean Platelet Volume 10.9 fL (9.4-12.4); Platelet Count 279 K/mcL (140-400); Red Blood Count 4.44 M/mcL (3.82-4.97); Red Cell Distribution Width 13.9 % (11.5-14.5); White Blood Count 13.7 K/mcL (4.3-11.1)
[2019-06-13 06:14] LABS: Troponin I < 0.03 ng/mL (< 0.04)
[2019-06-13 06:16] LABS: BUN/Creatinine Ratio 22 (6-26); Blood Urea Nitrogen 17 mg/dL (6-20); Calcium 9.6 mg/dL (8.6-10.3); Carbon Dioxide 21 mEq/L (23-29); Chloride 101 mEq/L (98-107); Glucose 284 mg/dL (70-105); Osmolality,Calculated 296 (280-300); Potassium 4.3 mEq/L (3.5-5.1); Sodium 137 mEq/L (136-145); eGFR For African Americans > 60 (> 60); eGFR For Non-African Americans > 60 (> 60)
[2019-06-13] MEDS: predniSONE 20 MG TABLET PO SCH (08:10)
[2019-06-13] MEDS: Insulin LISPRO 300 UNITS/3 ML VIAL SQ SCH ×4 (08:12→20:39)
[2019-06-13] MEDS: FLUoxetine 20 MG CAPSULE PO SCH (20:40)
[2019-06-13] MEDS: Azithromycin 500 MG in D5% in Water 250 ML IVPB SCH (23:12)
[2019-06-14 02:42] LABS: Basophils % 0.2 %; Hematocrit 35.6 % (35.3-44.9); Hemoglobin 11.2 g/dL (11.5-15.4); Immature Granulocytes % 1.2 % (0-4); Lymphocytes # 2.6 K/mcL (0.6-4.6); Lymphocytes % 12.7 %; Mean Corpuscular HGB Conc 31.5 g/dL (31.6-35.5); Mean Corpuscular Hemoglobin 27.4 pg (28.0-33.3); Mean Platelet Volume 11.3 fL (9.4-12.4); Monocytes # 1.3 K/mcL (0.0-1.3); Monocytes % 6.3 %; Platelet Count 282 K/mcL (140-400); Red Blood Count 4.09 M/mcL (3.82-4.97); Red Cell Distribution Width 14.6 % (11.5-14.5); Segmented Neutrophils % 79.6 %; White Blood Count 20.1 K/mcL (4.3-11.1)
[2019-06-14 03:00] LABS: BUN/Creatinine Ratio 33 (6-26); Blood Urea Nitrogen 25 mg/dL (6-20); Calcium 9.2 mg/dL (8.6-10.3); Carbon Dioxide 20 mEq/L (23-29); Chloride 105 mEq/L (98-107); Glucose 231 mg/dL (70-105); Osmolality,Calculated 294 (280-300); Potassium 4.7 mEq/L (3.5-5.1); Sodium 136 mEq/L (136-145); eGFR For African Americans > 60 (> 60); eGFR For Non-African Americans > 60 (> 60)
[2019-06-14] MEDS: Ipratropium/Albuterol Neb 3 ML IH SCH ×4 (04:37→21:59)
[2019-06-14] MEDS: *HR* Heparin 5,000 UNIT/ML VIAL SQ SCH ×2 (05:56→17:28)
[2019-06-14] MEDS: predniSONE 20 MG TABLET PO SCH (08:01)
[2019-06-14] MEDS: Insulin LISPRO 300 UNITS/3 ML VIAL SQ SCH ×4 (08:01→22:17)
[2019-06-14] MEDS: FLUoxetine 20 MG CAPSULE PO SCH (22:18)
[2019-06-14] MEDS ORDERED: GuaiFENesin Liq 200 MG/10 ML UDC PO PRN (23:20)
[2019-06-14] MEDS: Azithromycin 500 MG in D5% in Water 250 ML IVPB SCH (23:58)
[2019-06-15] MEDS: Ipratropium/Albuterol Neb 3 ML IH SCH ×2 (04:05→11:24)
[2019-06-15 04:19] LABS: Basophils % 0.2 %; Eosinophils # 0.1 K/mcL (0.0-0.6); Eosinophils % 0.3 %; Hemoglobin 11.3 g/dL (11.5-15.4); Immature Granulocytes % 1.3 % (0-4); Lymphocytes # 4.3 K/mcL (0.6-4.6); Lymphocytes % 26.8 %; Mean Corpuscular HGB Conc 31.4 g/dL (31.6-35.5); Mean Corpuscular Hemoglobin 27.8 pg (28.0-33.3); Mean Corpuscular Volume 88.5 fL (83.0-100.0); Mean Platelet Volume 11.3 fL (9.4-12.4); Monocytes # 1.1 K/mcL (0.0-1.3); Monocytes % 6.6 %; Neutrophils # 10.4 K/mcL (1.6-8.9); Platelet Count 264 K/mcL (140-400); Red Blood Count 4.07 M/mcL (3.82-4.97); Red Cell Distribution Width 14.6 % (11.5-14.5); Segmented Neutrophils % 64.8 %
[2019-06-15 04:34] LABS: BUN/Creatinine Ratio 25 (6-26); Blood Urea Nitrogen 21 mg/dL (6-20); Calcium 9.3 mg/dL (8.6-10.3); Carbon Dioxide 28 mEq/L (23-29); Chloride 103 mEq/L (98-107); Glucose 153 mg/dL (70-105); Osmolality,Calculated 294 (280-300); Potassium 4.5 mEq/L (3.5-5.1); Sodium 139 mEq/L (136-145); eGFR For African Americans > 60 (> 60); eGFR For Non-African Americans > 60 (> 60)
[2019-06-15] MEDS: *HR* Heparin 5,000 UNIT/ML VIAL SQ SCH (05:47)
[2019-06-15] MEDS: Insulin LISPRO 300 UNITS/3 ML VIAL SQ SCH ×2 (08:12→13:28)
[2019-06-15] MEDS: predniSONE 20 MG TABLET PO SCH (09:12)
[2019-06-15 12:03] VITALS: BP 138/69
== END 2019-06-15 14:46 | disposition home or self-care (01) ==
LOC: EMEROOARM 16:21 → 3BNU 16:21
PROVIDERS: ADMIT Internal Medicine; ATTEND Internal Medicine

== ENCOUNTER 2019-07-11 16:37 | Inpatient (IN) ==
[2019-07-11] MEDS ORDERED: methylPREDNISolone 125 MG/2 ML VIAL IVP ONE (16:43)
[2019-07-11] MEDS ORDERED: Ipratropium/Albuterol Neb 3 ML IH ONE (16:43)
--- NOTE | 2019-07-11 16:46 | Emergency Department Note ---
Disposition Clinical Impression: Acute exacerbation of chronic obstructive airways disease Disposition: Admitted As Inpatient Condition: Fair Referrals: Maria E Mackey MD [Primary Care Provider] - Time of Disposition: 18:05 General Adult HPI - General Stated complaint: DION Time Seen by Provider: 07/11/19 16:38 - Related Data Home Medications Medication Instructions Recorded Confirmed FLUoxetine HCl [Prozac] 40 mg PO HS 10/19/18 07/11/19 Lansoprazole [Prevacid] 30 mg PO HS 10/19/18 07/11/19 Albuterol Sulfate [Proair Hfa] 2 puff IH QID PRN 03/24/19 07/11/19 Beclomethasone Dipropionate [QVAR 2 puff IH BID 03/24/19 07/11/19 80 mcg REDIHALER] Glimepiride [Amaryl] 4 mg PO HS 03/24/19 07/11/19 Ipratropium/Albuterol Sulfate 3 ml IH QID PRN 03/24/19 07/11/19 [Iprat-Albut 0.5-3(2.5) mg/3 ml] Losartan Potassium 100 mg PO HS 03/24/19 07/11/19 Montelukast [Singulair] 10 mg PO HS 03/24/19 07/11/19 Omeprazole [PriLOSEC] 20 mg PO HS 03/24/19 07/11/19 traZODone [TraZODone] 150 mg PO HS PRN 07/11/19 07/11/19 Allergies Allergy/AdvReac Type Severity Reaction Status Date / Time levofloxacin [From Levaquin] Allergy Anaphylaxis Verified 06/13/19 16:52 ibuprofen AdvReac Rash Verified 06/13/19 16:52 Penicillins [PCN] AdvReac Hives Verified 06/13/19 16:52 prochlorperazine AdvReac Itching Verified 06/13/19 16:52 [From Compazine] propoxyphene AdvReac Hives Verified 06/13/19 16:52 [From Darvocet-N] Sulfa (Sulfonamide AdvReac Hives Verified 06/13/19 16:52 Antibiotics) Past Medical History - Past Medical History Medical history: Reports: asthma, COPD, diabetes, hyperlipidemia, hypertension Surgical history: Reports: appendectomy, cholecystectomy, hysterectomy Psychiatric history: Reports: depression HIM CLERK history: Reports: no HIM CLERK history - Social History Smoking Status: Never smoker Smokeless Tobacco Status: No Alcohol use: Reports: none Drug use: Reports: none Course Vital Signs Temperature 98.6 F 07/11/19 16:41 Pulse Rate 76 07/11/19 16:41 Respiratory Rate 24 07/11/19 16:41 Blood Pressure 118/90 07/11/19 16:41 O2 Sat by Pulse Oximetry 100 07/11/19 16:41 Temperature 98.6 F 07/11/19 16:41 Pulse Rate 75 07/11/19 17:17 Respiratory Rate 29 07/11/19 17:17 Blood Pressure 140/72 07/11/19 17:17 O2 Sat by Pulse Oximetry 100 07/11/19 17:17 Oxygen Delivery Oxygen Delivery Bipap Medical Decision Making - Lab Data Result diagrams: 07/11/19 17:13 07/11/19 17:13 Lab Results 07/11/19 07/11/19 07/11/19 Range/Units 17:13 17:13 17:13 WBC 10.2 (4.3-11.1) K/mcL RBC 4.43 (3.82-4.97) M/mcL Hgb 12.2 (11.5-15.4) g/dL Hct 37.5 (35.3-44.9) % MCV 84.7 (83.0-100.0) fL MCH 27.5 L (28.0-33.3) pg MCHC 32.5 (31.6-35.5) g/dL RDW 13.5 (11.5-14.5) % Plt Count 258 (140-400) K/mcL MPV 10.7 (9.4-12.4) fL Immature Gran % 0.6 (0-4) % Seg Neutrophils % 56.7 % Lymphocytes % 33.3 % Monocytes % 7.0 % Eosinophils % 2.1 % Basophils % 0.3 % Neutrophils # 5.8 (1.6-8.9) K/mcL Lymphocytes # 3.4 (0.6-4.6) K/mcL Monocytes # 0.7 (0.0-1.3) K/mcL Eosinophils # 0.2 (0.0-0.6) K/mcL Basophils # 0.0 (0.0-0.2) K/mcL Sodium 138 (136-145) mEq/L Potassium 3.6 (3.5-5.1) mEq/L Chloride 101 (98-107) mEq/L Carbon Dioxide 24 (23-29) mEq/L BUN 10 (6-20) mg/dL Creatinine 0.66 (0.60-1.20) mg/dL Est GFR ( Amer) > 60 (> 60) Est GFR (Non-Af Amer) > 60 (> 60) BUN/Creatinine Ratio 15 (6-26) Glucose 166 H (70-105) mg/dL Calculated Osmolality 289 (280-300) Lactic Acid 3.3 H (0.5-2.2) mmol/L Calcium 9.7 (8.6-10.3) mg/dL Troponin I < 0.03 (< 0.04) ng/mL B-Natriuretic Peptide (Less than 100) pg/mL 07/11/19 Range/Units 17:13 WBC (4.3-11.1) K/mcL RBC (3.82-4.97) M/mcL Hgb (11.5-15.4) g/dL Hct (35.3-44.9) % MCV (83.0-100.0) fL MCH (28.0-33.3) pg MCHC (31.6-35.5) g/dL RDW (11.5-14.5) % Plt Count (140-400) K/mcL MPV (9.4-12.4) fL Immature Gran % (0-4) % Seg Neutrophils % % Lymphocytes % % Monocytes % % Eosinophils % % Basophils % % Neutrophils # (1.6-8.9) K/mcL Lymphocytes # (0.6-4.6) K/mcL Monocytes # (0.0-1.3) K/mcL Eosinophils # (0.0-0.6) K/mcL Basophils # (0.0-0.2) K/mcL Sodium (136-145) mEq/L Potassium (3.5-5.1) mEq/L Chloride (98-107) mEq/L Carbon Dioxide (23-29) mEq/L BUN (6-20) mg/dL Creatinine (0.60-1.20) mg/dL Est GFR ( Amer) (> 60) Est GFR (Non-Af Amer) (> 60) BUN/Creatinine Ratio (6-26) Glucose (70-105) mg/dL Calculated Osmolality (280-300) Lactic Acid (0.5-2.2) mmol/L Calcium (8.6-10.3) mg/dL Troponin I (< 0.04) ng/mL B-Natriuretic Peptide 62 (Less than 100) pg/mL Critical Care Time Critical Care Time: Yes Total Critical Care Time: 30 Attestation: The high probability of a clinically significant, sudden or life threatening deterioration of the [] system(s) required my full and direct attention, intervention and personal management. The aggregate critical care time was [] minutes. This time is in addition to time spent performing reported procedures but includes the following: [] Data Review and interpretation [] Patient assessment and monitoring of vital signs [] Documentation [] Medication orders and management Attestation Statement - Attestation Attestation: I reviewed the residents documentation and agree with the residents assessment and plan of care. I have personally had face to face time with the patient. (Brief History, Brief Exam, and MDM) I personally supervised and was present for the [place]/critical portions of the following procedures completed by the resident: (add procedures performed here). [id number] time provided I attest to supervise and the resident physician's interpretation of the ECG. Patient arrives by private vehicle complaining of dyspnea. She is visibly tachypneic with increased work of breathing upon arrival. BIPAP therapy initiated
--- NOTE | 2019-07-11 16:55 | Emergency Department Note ---
Disposition Clinical Impression: Acute exacerbation of chronic obstructive airways disease Disposition: Admitted As Inpatient Condition: Fair Time of Disposition: 18:04 General Adult HPI - General Stated complaint: DION Time Seen by Provider: 07/11/19 16:38 Source: patient, EMS Mode of arrival: EMS Limitations: no limitations Nursing Notes Reviewed: Yes Vital Signs Reviewed: Yes - History of Present Illness HPI Narrative: Patient is a 49-year-old female that presents the emergency department with reports of increased shortness of breath and wheezing. Patient states that she has a history of asthma and COPD. Patient states that this is been ongoing for the past few hours. Patient is is progressively been getting worse over the last few days but her current symptoms have been like this over a couple hours. Patient states that she has not had a significant cough or sputum production. Patient denies any chest pain. Patient denies any fevers. Patient states that she is been using her inhalers and nebulized treatments at home with minimal relief. Patient states that she just feels like she cannot catch her breath. Patient states that she has had to be admitted to the hospital in the past for her breathing. Patient denies having to be intubated or placed on BiPAP in the past. Pain Scale: 7 - Related Data Home Medications Medication Instructions Recorded Confirmed FLUoxetine HCl [Prozac] 40 mg PO HS 10/19/18 06/13/19 Lansoprazole [Prevacid] 30 mg PO HS 10/19/18 06/13/19 Albuterol Sulfate [Proair Hfa] 2 puff IH QID PRN 03/24/19 06/13/19 Beclomethasone Dipropionate [QVAR 2 puff IH BID 03/24/19 06/13/19 80 mcg REDIHALER] Glimepiride [Amaryl] 8 mg PO HS 03/24/19 06/13/19 Ipratropium/Albuterol Sulfate 3 ml IH QID PRN 03/24/19 06/13/19 [Iprat-Albut 0.5-3(2.5) mg/3 ml] Losartan Potassium 100 mg PO HS 03/24/19 06/13/19 Montelukast [Singulair] 10 mg PO HS 03/24/19 06/13/19 Omeprazole [PriLOSEC] 20 mg PO HS 03/24/19 06/13/19 traZODone [TraZODone] 150 mg PO HS PRN 07/11/19 07/11/19 Allergies Allergy/AdvReac Type Severity Reaction Status Date / Time levofloxacin [From Levaquin] Allergy Anaphylaxis Verified 06/13/19 16:52 ibuprofen AdvReac Rash Verified 06/13/19 16:52 Penicillins [PCN] AdvReac Hives Verified 06/13/19 16:52 prochlorperazine AdvReac Itching Verified 06/13/19 16:52 [From Compazine] propoxyphene AdvReac Hives Verified 06/13/19 16:52 [From Darvocet-N] Sulfa (Sulfonamide AdvReac Hives Verified 06/13/19 16:52 Antibiotics) All systems ED: reviewed and negative except as stated. 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 Tachypnea) - Cardiovascular Cardiovascular exam: Present: regular rate, normal rhythm, normal heart sounds, +S1, +S2 - Abdominal Exam Abdominal exam: Present: soft, Non-Tender, normal bowel sounds - Neurological Exam Neurological exam: Present: alert, oriented X3 - Psychiatric Psychiatric exam: Present: normal affect, normal mood - Skin Skin exam: Present: warm, dry, intact Course Vital Signs Temperature 98.6 F 07/11/19 16:41 Pulse Rate 76 07/11/19 16:41 Respiratory Rate 24 07/11/19 16:41 Blood Pressure 118/90 07/11/19 16:41 O2 Sat by Pulse Oximetry 100 07/11/19 16:41 Temperature 98.6 F 07/11/19 16:41 Pulse Rate 75 07/11/19 17:17 Respiratory Rate 29 07/11/19 17:17 Blood Pressure 140/72 07/11/19 17:17 O2 Sat by Pulse Oximetry 100 07/11/19 17:17 Oxygen Delivery Oxygen Delivery Bipap Medical Decision Making - MDM Narrative Medical decision making narrative: Due the patient's into the emergency department with reports of increased shortness of breath we will obtain basic laboratory testing, chest x-ray, EKG and the patient will be given DuoNeb breathing treatments, steroids and started on BiPAP. Patient states that she is feeling somewhat better after being put on the BiPAP and having her breathing treatments. Patient does have an elevated lactic acid of 3.3. The remainder of her laboratory testing is relatively unremarkable. Due to the patient having an elevated lactic acid we will give the patient a liter of IV fluids. Due to the patient having some relief with the breathing treatments and BiPAP feel that it is necessary for her to be admitted to the hospital for further evaluation and management of her likely COPD exacerbation. Called spoke the admitting hospitalist and he is except the patient to their service. Patient be admitted to the hospital at this time for further evaluation and management of her respiratory status. - Medical Records Medical records reviewed: Yes I reviewed the patient's medical records. - Lab Data Lab results reviewed: Yes I reviewed the patient's lab results. Result diagrams: 07/11/19 17:13 07/11/19 17:13 Lab Results 07/11/19 07/11/19 07/11/19 Range/Units 17:13 17:13 17:13 WBC 10.2 (4.3-11.1) K/mcL RBC 4.43 (3.82-4.97) M/mcL Hgb 12.2 (11.5-15.4) g/dL Hct 37.5 (35.3-44.9) % MCV 84.7 (83.0-100.0) fL MCH 27.5 L (28.0-33.3) pg MCHC 32.5 (31.6-35.5) g/dL RDW 13.5 (11.5-14.5) % Plt Count 258 (140-400) K/mcL MPV 10.7 (9.4-12.4) fL Immature Gran % 0.6 (0-4) % Seg Neutrophils % 56.7 % Lymphocytes % 33.3 % Monocytes % 7.0 % Eosinophils % 2.1 % Basophils % 0.3 % Neutrophils # 5.8 (1.6-8.9) K/mcL Lymphocytes # 3.4 (0.6-4.6) K/mcL Monocytes # 0.7 (0.0-1.3) K/mcL Eosinophils # 0.2 (0.0-0.6) K/mcL Basophils # 0.0 (0.0-0.2) K/mcL Sodium 138 (136-145) mEq/L Potassium 3.6 (3.5-5.1) mEq/L Chloride 101 (98-107) mEq/L Carbon Dioxide 24 (23-29) mEq/L BUN 10 (6-20) mg/dL Creatinine 0.66 (0.60-1.20) mg/dL Est GFR ( Amer) > 60 (> 60) Est GFR (Non-Af Amer) > 60 (> 60) BUN/Creatinine Ratio 15 (6-26) Glucose 166 H (70-105) mg/dL Calculated Osmolality 289 (280-300) Lactic Acid 3.3 H (0.5-2.2) mmol/L Calcium 9.7 (8.6-10.3) mg/dL Troponin I < 0.03 (< 0.04) ng/mL B-Natriuretic Peptide (Less than 100) pg/mL 07/11/19 Range/Units 17:13 WBC (4.3-11.1) K/mcL RBC (3.82-4.97) M/mcL Hgb (11.5-15.4) g/dL Hct (35.3-44.9) % MCV (83.0-100.0) fL MCH (28.0-33.3) pg MCHC (31.6-35.5) g/dL RDW (11.5-14.5) % Plt Count (140-400) K/mcL MPV (9.4-12.4) fL Immature Gran % (0-4) % Seg Neutrophils % % Lymphocytes % % Monocytes % % Eosinophils % % Basophils % % Neutrophils # (1.6-8.9) K/mcL Lymphocytes # (0.6-4.6) K/mcL Monocytes # (0.0-1.3) K/mcL Eosinophils # (0.0-0.6) K/mcL Basophils # (0.0-0.2) K/mcL Sodium (136-145) mEq/L Potassium (3.5-5.1) mEq/L Chloride (98-107) mEq/L Carbon Dioxide (23-29) mEq/L BUN (6-20) mg/dL Creatinine (0.60-1.20) mg/dL Est GFR ( Amer) (> 60) Est GFR (Non-Af Amer) (> 60) BUN/Creatinine Ratio (6-26) Glucose (70-105) mg/dL Calculated Osmolality (280-300) Lactic Acid (0.5-2.2) mmol/L Calcium (8.6-10.3) mg/dL Troponin I (< 0.04) ng/mL B-Natriuretic Peptide 62 (Less than 100) pg/mL - Radiology Data Radiology results reviewed: Yes I reviewed the patient's radiology results. Chest X-Ray 07/11/19 16:44 IMPRESSION: No acute cardiopulmonary disease. D/ / Lewis Hassan MD / Lewis Hassan MD Interpreting Provider: Lewis Hassan MD - EKG Data EKG #1 EKG attestation: Yes I reviewed and interpreted this EKG. EKG results narrative: EKG shows a sinus rhythm at a rate of 84 bpm, MO interval 140, QRS duration 94, QTc of 435. There is no evidence of STEMI on EKG. This is compared to prior EKG on 06/12/19.
[2019-07-11] MEDS ORDERED: *HR* LORazepam 2 MG/ML VIAL IVP ONE (17:07)
[2019-07-11 17:31] LABS: Basophils % 0.3 %; Eosinophils # 0.2 K/mcL (0.0-0.6); Eosinophils % 2.1 %; Hematocrit 37.5 % (35.3-44.9); Hemoglobin 12.2 g/dL (11.5-15.4); Immature Granulocytes % 0.6 % (0-4); Lymphocytes # 3.4 K/mcL (0.6-4.6); Lymphocytes % 33.3 %; Mean Corpuscular HGB Conc 32.5 g/dL (31.6-35.5); Mean Corpuscular Hemoglobin 27.5 pg (28.0-33.3); Mean Corpuscular Volume 84.7 fL (83.0-100.0); Mean Platelet Volume 10.7 fL (9.4-12.4); Monocytes # 0.7 K/mcL (0.0-1.3); Neutrophils # 5.8 K/mcL (1.6-8.9); Platelet Count 258 K/mcL (140-400); Red Blood Count 4.43 M/mcL (3.82-4.97); Red Cell Distribution Width 13.5 % (11.5-14.5); Segmented Neutrophils % 56.7 %; White Blood Count 10.2 K/mcL (4.3-11.1)
[2019-07-11] MEDS ORDERED: 0.9 % Sodium Chloride 1,000 ML IVC ONE (17:44)
[2019-07-11 17:54] LABS: BUN/Creatinine Ratio 15 (6-26); Blood Urea Nitrogen 10 mg/dL (6-20); Calcium 9.7 mg/dL (8.6-10.3); Carbon Dioxide 24 mEq/L (23-29); Chloride 101 mEq/L (98-107); Glucose 166 mg/dL (70-105); Osmolality,Calculated 289 (280-300); Potassium 3.6 mEq/L (3.5-5.1); Sodium 138 mEq/L (136-145); Troponin I < 0.03 ng/mL (< 0.04); eGFR For African Americans > 60 (> 60); eGFR For Non-African Americans > 60 (> 60)
[2019-07-11] MEDS ORDERED: traZODone 50 MG TABLET PO PRN (18:06)
--- NOTE | 2019-07-11 18:06 | Internal Med History&Physical ---
Date of Encounter: 07/11/19 Time of Encounter: 18:26 Internal Medicine - H&P: HPI History of present illness: Ms. Archibald is a 49 year old female with history of asthma and COPD, non-smoker, HTN, HPL, diabetes presented to ED for dyspnea. Onset was yesterday gradually felt like she could not catch her breath. She has some associated right-sided pleuritic pain with dry cough, and nausea. She denies chest pain, fevers/chills, sputum production, vomiting, diaphoresis. Never intubated for re spiratory failure. Asthma triggers include pollen and dust. They are currently undergoing renovations at home. No sick contacts, no recent travel history. Family history reviewed, mother and father both with COPD, father had silicosis. In the ED a chest x-ray was done that showed no acute process, initial troponin negative. BNP was within normal limits. She was severely dyspneic requiring bipap. She was given IV fluids, Solu Medrol, Duo Nebs. Currently feeling better. Past Med Surg Social Fam HX - Past Medical History Medical history: asthma, COPD, diabetes, hyperlipidemia, hypertension Psychiatric history: depression - Past Surgical History Surgical History: appendectomy, cholecystectomy, hysterectomy Additional surgical history: tonsil - Social History Smoking Status: Never smoker Smokeless Tobacco Status: No Alcohol use: none Drug use: none - Family History Mother Living Status: Still Living Hx Family Cardiac Disorders: Yes Hx Family Respiratory Disorders: No Hx Family Cancer: No Hx Family GI Disorders: No Hx Family Endocrine Disorder: Yes (Hypothyroidism) Hx Family Neuromuscular Disorders: No Hx Family Neurologic Disorders: No (CVAx2) Hx Family HEENT Disorders: No Hx Family Autoimmune Disorders: No Father Living Status: Still Living Hx Family Cardiac Disorders: Yes (Lower extremity swelling, HTN) Hx Family Respiratory Disorders: Yes Hx Family Cancer: No Hx Family GI Disorders: No Hx Family Endocrine Disorder: Yes (Hypothyroidism, DM) Hx Family Neuromuscular Disorders: No Hx Family Neurologic Disorders: No Hx Family HEENT Disorders: No Hx Family Autoimmune Disorders: No Internal Medicine - H&P: Meds FLUoxetine HCl [Prozac] 40 mg PO HS 10/19/18 [History] Lansoprazole [Prevacid] 30 mg PO HS 10/19/18 [History] Albuterol Sulfate [Proair Hfa] 2 puff IH QID PRN 03/24/19 [History] Beclomethasone Dipropionate [QVAR 80 mcg REDIHALER] 2 puff IH BID 03/24/19 [History] Glimepiride [Amaryl] 4 mg PO HS 03/24/19 [History] Ipratropium/Albuterol Sulfate [Iprat-Albut 0.5-3(2.5) mg/3 ml] 3 ml IH QID PRN 03/24/19 [History] Losartan Potassium 100 mg PO HS 03/24/19 [History] Montelukast [Singulair] 10 mg PO HS 03/24/19 [History] Omeprazole [PriLOSEC] 20 mg PO HS 03/24/19 [History] traZODone [TraZODone] 150 mg PO HS PRN 07/11/19 [History] Allergy/AdvReac Type Severity Reaction Status Date / Time levofloxacin [From Levaquin] Allergy Anaphylaxis Verified 06/13/19 16:52 ibuprofen AdvReac Rash Verified 06/13/19 16:52 Penicillins [PCN] AdvReac Hives Verified 06/13/19 16:52 prochlorperazine AdvReac Itching Verified 06/13/19 16:52 [From Compazine] propoxyphene AdvReac Hives Verified 06/13/19 16:52 [From Darvocet-N] Sulfa (Sulfonamide AdvReac Hives Verified 06/13/19 16:52 Antibiotics) All Systems PM: A 10-system review of systems was performed and is negative for pertinent findings except as documented above in the HPI. - Constitutional Constitutional: no chills, no fever(s), no night sweats - EENT Eyes: no change in vision, no discharge, no pain, no photophobia Ears: no ear discharge, no ear pain, no tinnitus Nose, mouth and throat: no dysphagia, no nasal discharge, no neck pain, no sore throat - Cardiovascular Cardiovascular ROS IM: dyspnea, edema, no chest pain, no diaphoresis, no lightheadedness, no palpitations, no syncope - Respiratory Respiratory: cough (dry), wheezing, pain with cough, no dyspnea, no excessive phlegm production - Gastrointestinal Gastrointestinal: no abdominal pain, no diarrhea, no hematemesis, no hematochezia, no melena, no nausea, no vomiting - Genitourinary Genitourinary: no change in urinary stream, no dysuria, no flank pain, no hematuria - Musculoskeletal Musculoskeletal ROS IM: no numbness, no tingling - Integumentary Integumentary IM: no rash, no unusual bruising - Neurological Neurological ROS: no confusion, no convulsions, no focal weakness, no numbness, no tingling, no tremor(s) - Hematologic/Lymphatic Hematologic/Lymphatic: no easy bruising - Constitutional Vitals: Temp Pulse Resp BP Pulse Ox 98.6 F 75 29 140/72 100 07/11/19 16:41 07/11/19 17:17 07/11/19 17:17 07/11/19 17:17 07/11/19 17:17 General appearance: Present: A&O X 3, morbidly obese Exam: in respiratory distress on bipap. Able to converse in conversation. Alert. - Head Head exam: Present: atraumatic, normocephalic - Eye Eye exam: Present: PERRL, conjuntiva pink, sclera anicteric Pupils: Present: PERRL - Neck Neck exam general surgery: Present: supple, trachea midline. Absent: lymphadenopathy - Respiratory Respiratory exam: Present: decreased breath sounds, wheezes. Absent: accessory muscle use, rales, rhonchi - Cardiovascular Cardiovascular exam: Present: RRR, +S1, +S2. Absent: diastolic murmur, gallop, rubs, systolic murmur - GI/Abdominal GI/Abdominal exam: Present: normal bowel sounds, soft, no peritoneal signs. Absent: distended, tenderness - Extremities Exam Extremities exam: Present: warm, radial pulses palpable and symmetrical. Absent: calf tenderness, cyanotic Additional comments: trace bipedal edema. - Neurological Exam Neurological exam: Present: CN II-XII intact, oriented X3, no focal deficits. Absent: pronater drift, facial droop, speech deficit - Skin Skin exam: Present: dry, intact Internal Med - H&P Results - Labs CBC & Chem 7: 07/11/19 17:13 07/11/19 17:13 Labs: Short CBC 07/11/19 Range/Units 17:13 WBC 10.2 (4.3-11.1) K/mcL Hgb 12.2 (11.5-15.4) g/dL Hct 37.5 (35.3-44.9) % Plt Count 258 (140-400) K/mcL Neutrophils # 5.8 (1.6-8.9) K/mcL BMP 07/11/19 17:13 Sodium 138 Potassium 3.6 Chloride 101 Carbon Dioxide 24 BUN 10 Creatinine 0.66 Glucose 166 H Calcium 9.7 Cardiac Enzymes 07/11/19 Range/Units 17:13 Troponin I < 0.03 (< 0.04) ng/mL - Impressions ITS Impressions Chest X-Ray 07/11/19 16:44 IMPRESSION: No acute cardiopulmonary disease. D/ / Lewis Hassan MD / Lewis Hassan MD Interpreting Provider: Lewis Hassan MD - Assessment and Plan (1) Acute exacerbation of chronic obstructive airways disease Current Visit: Yes Status: Acute Assessment and plan: Patient requiring bipap on admission due to severe dyspnea with RR was as high as 41. Likely cause is dust or mold exposure as these are known triggers for her and she is in the process of renovating. Continue Solu Medrol Duo Nebs scheduled and prn Bipap as needed. (2) Hypertension Current Visit: No Status: Acute Assessment and plan: Losartan Qualifiers: Hypertension type: essential hypertension Qualified Code(s): I10 - Essential (primary) hypertension (3) Type 2 diabetes mellitus Current Visit: No Status: Acute Assessment and plan: ISS, diabetic diet May need basal insulin started after steroid administration if becomes severe hyperglycemic. Qualifiers: Diabetes mellitus half-way insulin use: without director long term care use Diabetes mellitus complication status: without complication Qualified Code(s): E11.9 - Type 2 diabetes mellitus without complications (4) Pleurisy Current Visit: Yes Status: Acute Assessment and plan: Likely from chronic cough. (5) Hyperlipidemia Current Visit: Yes Status: Acute Assessment and plan: Resume home medications. Qualifiers: Hyperlipidemia type: unspecified Qualified Code(s): E78.5 - Hyperlipidemia, unspecified (6) Acute respiratory failure with hypoxia Current Visit: Yes Status: Acute Assessment and plan: Patient required bipap on admission for severe dyspnea with RR up to 41 and with labored breathing. Plan as above. (7) DVT prophylaxis Current Visit: No Status: Acute Assessment and plan: Heparin SQ - Time Spent With Patient Total time spent is greater than 50% in coordination of care (as documented) at patient's floor/unit and/or counseling patient:
[2019-07-11] MEDS ORDERED: Acetaminophen 325 MG TABLET PO PRN (18:07)
[2019-07-11] MEDS ORDERED: Naloxone 0.4 MG/ML INJ IVP PRN (18:07)
[2019-07-11] MEDS ORDERED: Ipratropium/Albuterol Neb 3 ML IH PRN (18:33)
[2019-07-11] MEDS: Ipratropium/Albuterol Neb 3 ML IH SCH ×2 (19:36→23:42)
[2019-07-11] MEDS: traMADol 50 MG TABLET PO PRN (21:19)
[2019-07-11] MEDS: FLUoxetine 20 MG CAPSULE PO SCH (21:20)
[2019-07-11] MEDS: Insulin LISPRO 300 UNITS/3 ML VIAL SQ SCH (21:21)
[2019-07-11 21:52] LABS: Magnesium 1.5 mg/dL (1.6-2.6); Phosphorous 4.1 mg/dL (2.7-4.5)
[2019-07-11] MEDS ORDERED: 0.9 % Sodium Chloride 1,000 ML IVC SCH (23:00)
[2019-07-11] MEDS: MethylPREDNISolone 40 MG/ML VIAL IVP SCH (23:24)
[2019-07-11] MEDS ORDERED: Ondansetron 4 MG/2 ML VIAL IVP PRN (23:33)
[2019-07-12] MEDS: *HR* OxyCODONE Immed Rel 5 MG TABLET PO PRN ×2 (00:16→10:11)
[2019-07-12] MEDS ORDERED: 0.9 % Sodium Chloride 1,000 ML IVC ONE (02:47)
[2019-07-12] MEDS: Ipratropium/Albuterol Neb 3 ML IH SCH ×2 (03:42→07:15)
[2019-07-12] MEDS: *HR* Heparin 5,000 UNIT/ML VIAL SQ SCH ×2 (05:55→16:51)
--- NOTE | 2019-07-12 07:55 | Internal Med Progress Note ---
Hospitalist Progress Note - Encounter Date of Encounter: 07/12/19 Time of Encounter: 07:52 - Subjective Interval History: Patient seen and examined this morning. No acute overnight events. Breathing improved. Denies any chest pain nausea or vomiting or diarrhea. Saturating well on 2 L nasal cannula. - Exam Vitals: Temp Pulse Resp BP Pulse Ox 98.0 F 71 16 136/70 92 07/12/19 07:23 07/12/19 07:23 07/12/19 07:23 07/12/19 07:23 07/12/19 07:23 Exam: General: In no acute distress. mobidly obese Respiratory exam: CTAB. no accessory muscle use, rales, rhonchi, wheezes Cardiovascular exam: RRR, +S1, +S2. no murmur, gallop, rubs. GI/Abdominal exam: Non-tender, Non-distended, normal bowel sounds, soft, no peritoneal signs. Extremities exam: no pedal edema, pulses palpable in b/l lower extremities. no calf tenderness Neurological exam: CN II-XII intact, AO X3, no focal deficits. Skin exam: No skin rash - Assessment and Plan (1) Type 2 diabetes mellitus Current Visit: No Status: Acute (2) Hypertension Current Visit: No Status: Acute (3) DVT prophylaxis Current Visit: No Status: Acute (4) Acute exacerbation of chronic obstructive airways disease Current Visit: Yes Status: Acute (5) Pleurisy Current Visit: Yes Status: Acute (6) Hyperlipidemia Current Visit: Yes Status: Acute (7) Acute respiratory failure with hypoxia Current Visit: Yes Status: Acute - Summary of Assessment and Plan Summary of Assessment and Plan: Assessment Acute COPD exacerbation acute hypoxic respiratory failure lactic acidosis Chronic HTN HLD DM Plan - c/w steroid taper. Change bronchodilator to xopenex given lactic acidosis from duonebs. Likely cause is dust or mold exposure as these are known triggers for her and she is in the process of renovating. c/w prn bipap - lactic acidosis likely related to COPD and duonebs. will stop fluids now and trend lactic acid. - c/w losartan for BP - c/w SSI and accuchecks, diabetic diet. - Heparin SQ for dvt ppx. - Time Spent with Patient Total time spent is greater than 50% in coordination of care (as documented) at patient's floor/unit and/or counseling patient: Internal Medicine: Result - Labs CBC & Chem 7: 07/11/19 17:13 07/11/19 17:13 Labs: Short CBC 07/11/19 Range/Units 17:13 WBC 10.2 (4.3-11.1) K/mcL Hgb 12.2 (11.5-15.4) g/dL Hct 37.5 (35.3-44.9) % Plt Count 258 (140-400) K/mcL Neutrophils # 5.8 (1.6-8.9) K/mcL BMP 07/11/19 17:13 Sodium 138 Potassium 3.6 Chloride 101 Carbon Dioxide 24 BUN 10 Creatinine 0.66 Glucose 166 H Calcium 9.7 Cardiac Enzymes 07/11/19 Range/Units 17:13 Troponin I < 0.03 (< 0.04) ng/mL - Impressions Impressions Chest X-Ray 07/11/19 16:44 IMPRESSION: No acute cardiopulmonary disease. D/ / Lewis Hassan MD / Lewis Hassan MD Interpreting Provider: Lewis Hassan MD Consult Discharge Plan - Plan (1) Type 2 diabetes mellitus Qualifiers: Diabetes mellitus terminologist insulin use: without fdc use Diabetes mellitus complication status: without complication Qualified Code(s): E11.9 - Type 2 diabetes mellitus without complications (2) Hypertension Qualifiers: Hypertension type: essential hypertension Qualified Code(s): I10 - Essential (primary) hypertension (6) Hyperlipidemia Qualifiers: Hyperlipidemia type: unspecified Qualified Code(s): E78.5 - Hyperlipidemia, unspecified
[2019-07-12] MEDS: traMADol 50 MG TABLET PO PRN ×2 (08:24→15:22)
[2019-07-12] MEDS: MethylPREDNISolone 40 MG/ML VIAL IVP SCH ×2 (08:24→16:51)
[2019-07-12] MEDS: Insulin LISPRO 300 UNITS/3 ML VIAL SQ SCH ×4 (08:25→21:00)
--- NOTE | 2019-07-12 09:43 | Electrocardiograph Report ---
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
[2019-07-12] MEDS: Levalbuterol Neb 1.25 MG/3 ML IH SCH ×3 (10:26→21:58)
[2019-07-12 20:55] LABS: Adenovirus Not Detected (Not Detect); Bordetella Pertussis Not Detected (Not Detect); Chlamydophila pneumoniae Not Detected (Not Detect); Coronavirus 229E Not Detected (Not Detect); Coronavirus HKU1 Not Detected (Not Detect); Coronavirus NL63 Not Detected (Not Detect); Coronavirus OC43 Not Detected (Not Detect); Human Metapneumovirus Not Detected (Not Detect); Human Rhinovirus/Enterovirus Not Detected (Not Detect); Influenza A Subtype 2009 H1 Not Detected (Not Detect); Influenza A Untypeable Not Detected (Not Detect); Influenza B Not Detected (Not Detect); Mycoplasma pneumoniae Not Detected (Not Detect); Parainfluenza Virus 1 Not Detected (Not Detect); Parainfluenza Virus 2 Not Detected (Not Detect); Parainfluenza Virus 3 Not Detected (Not Detect); Parainfluenza Virus 4 Not Detected (Not Detect); Respiratory Syncytial Virus Not Detected (Not Detect)
[2019-07-12] MEDS: FLUoxetine 20 MG CAPSULE PO SCH (21:00)
[2019-07-13 01:54] LABS: BUN/Creatinine Ratio 29 (6-26); Blood Urea Nitrogen 22 mg/dL (6-20); Calcium 9.3 mg/dL (8.6-10.3); Carbon Dioxide 21 mEq/L (23-29); Chloride 104 mEq/L (98-107); Glucose 322 mg/dL (70-105); Osmolality,Calculated 298 (280-300); Potassium 4.7 mEq/L (3.5-5.1); Sodium 136 mEq/L (136-145); eGFR For African Americans > 60 (> 60); eGFR For Non-African Americans > 60 (> 60)
[2019-07-13] MEDS: Levalbuterol Neb 1.25 MG/3 ML IH SCH ×3 (04:16→15:30)
[2019-07-13] MEDS: MethylPREDNISolone 40 MG/ML VIAL IVP SCH (05:07)
[2019-07-13] MEDS: *HR* Heparin 5,000 UNIT/ML VIAL SQ SCH (05:07)
[2019-07-13] MEDS: Insulin LISPRO 300 UNITS/3 ML VIAL SQ SCH ×2 (08:11→11:59)
[2019-07-13] MEDS ORDERED: Isovue-370 500 ML BOTTLE IVP ONE (10:42)
[2019-07-13 10:58] LABS: Magnesium 1.8 mg/dL (1.6-2.6)
[2019-07-13 11:26] VITALS: BP 125/62
--- NOTE | 2019-07-13 15:35 | Discharge Summary ---
- NOTES TO OUTPATIENT PROVIDER Notes to Outpatient Provider: Patient discharged with tapering course of steroids. Date of Encounter: 07/13/19 Time of Encounter: 15:33 - Discharge Diagnosis (1) Type 2 diabetes mellitus Priority: Secondary Status: Acute Qualifiers: Diabetes mellitus hacksaw inspector insulin use: without hacksaw inspector use Diabetes mellitus complication status: without complication Qualified Code(s): E11.9 - Type 2 diabetes mellitus without complications (2) Hypertension Priority: Secondary Status: Acute Qualifiers: Hypertension type: essential hypertension Qualified Code(s): I10 - Essential (primary) hypertension (3) DVT prophylaxis Priority: Secondary Status: Acute (4) Acute exacerbation of chronic obstructive airways disease Priority: Primary Status: Acute (5) Pleurisy Priority: Secondary Status: Acute (6) Hyperlipidemia Priority: Secondary Status: Acute Qualifiers: Hyperlipidemia type: unspecified Qualified Code(s): E78.5 - Hyperlipidemia, unspecified (7) Acute respiratory failure with hypoxia Priority: Primary Status: Acute (8) Elevated lactic acid level Priority: Secondary Status: Acute Hospital course: Ms. Archibald is a 49 year old female with past medical history of COPD, hypertension, diabetes came with complaint of shortness of breath. Patient was found to have acute COPD exacerbation. Patient was also found to have elevated lactic acid likely secondary to her diabetes and some hypoxia. She was started on steroids and bronchodilators. She improved course of 3 days of hospital stay. Steroids were tapered down. No signs of infections were noted. CTA was obtained to rule out PE which was negative. There are some signs of diffuse fatty infiltration of liver which might be contributory to her lactic acidosis along with diabetes and COPD. Patient was stable to be discharged home on tapering steroid course. Discharge discussed with: patient, nurse - Time Spent with Patient Total time spent providing and/or coordinating discharge services: Time spent: Greater than 30 minutes (40) - Discharge Medications Prescriptions: New predniSONE [PredniSONE] See Taper PO DAILY 12 Days #30 tablet Continued Lansoprazole [Prevacid] 30 mg PO HS FLUoxetine HCl [Prozac] 40 mg PO HS Losartan Potassium 100 mg PO HS Montelukast [Singulair] 10 mg PO HS Glimepiride [Amaryl] 4 mg PO HS Albuterol Sulfate [Proair Hfa] 2 puff IH QID PRN PRN Reason: Shortness Of Breath Beclomethasone Dipropionate [QVAR 80 mcg REDIHALER] 2 puff IH BID Ipratropium/Albuterol Sulfate [Iprat-Albut 0.5-3(2.5) mg/3 ml] 3 ml IH QID PRN PRN Reason: Shortness Of Breath traZODone [TraZODone] 150 mg PO HS PRN PRN Reason: Insomnia Discontinued Omeprazole [PriLOSEC] 20 mg PO HS Home Medications: FLUoxetine HCl [Prozac] 40 mg PO HS 10/19/18 [History] Lansoprazole [Prevacid] 30 mg PO HS 10/19/18 [History] Albuterol Sulfate [Proair Hfa] 2 puff IH QID PRN 03/24/19 [History] Beclomethasone Dipropionate [QVAR 80 mcg REDIHALER] 2 puff IH BID 03/24/19 [History] Glimepiride [Amaryl] 4 mg PO HS 03/24/19 [History] Ipratropium/Albuterol Sulfate [Iprat-Albut 0.5-3(2.5) mg/3 ml] 3 ml IH QID PRN 03/24/19 [History] Losartan Potassium 100 mg PO HS 03/24/19 [History] Montelukast [Singulair] 10 mg PO HS 03/24/19 [History] traZODone [TraZODone] 150 mg PO HS PRN 07/11/19 [History] predniSONE [PredniSONE] See Taper PO DAILY 12 Days #30 tablet 07/13/19 [Rx] Allergies/Adverse Reactions: Allergy/AdvReac Type Severity Reaction Status Date / Time levofloxacin [From Levaquin] Allergy Anaphylaxis Verified 06/13/19 16:52 ibuprofen AdvReac Rash Verified 06/13/19 16:52 Penicillins [PCN] AdvReac Hives Verified 06/13/19 16:52 prochlorperazine AdvReac Itching Verified 06/13/19 16:52 [From Compazine] propoxyphene AdvReac Hives Verified 06/13/19 16:52 [From Darvocet-N] Sulfa (Sulfonamide AdvReac Hives Verified 06/13/19 16:52 Antibiotics) Date of admission: 07/11/19 18:24 Primary care physician: Maria E Mackey MD Discharging clinician: Kyree Alanis - Constitutional Vitals: Temp Pulse Resp BP Pulse Ox 98.2 F 67 18 125/62 92 07/13/19 11:22 07/13/19 11:22 07/13/19 15:32 07/13/19 11:22 07/13/19 15:32 Exam: General: In no acute distress. mobidly obese Respiratory exam: CTAB. no accessory muscle use, rales, rhonchi, wheezes Cardiovascular exam: RRR, +S1, +S2. no murmur, gallop, rubs. GI/Abdominal exam: Non-tender, Non-distended, normal bowel sounds, soft, no peritoneal signs. Extremities exam: no pedal edema, pulses palpable in b/l lower extremities. no calf tenderness Neurological exam: CN II-XII intact, AO X3, no focal deficits. Skin exam: No skin rash - Patient Status Disposition: Home, Self-Care Condition: Fair - Discharge Instructions Follow Up With: Maria E Mackey MD [Primary Care Provider] - 07/20/19 10:00 am Forms: ED Satisfaction Letter - Diet and Activity Activity: increase activity as tolerated
[2019-07-13] MEDS ORDERED: FLU Vac QV 19-20 (18YR+)/PF 0.5 ML SYRINGE IM ONE (16:07)
--- NOTE | 2019-07-13 16:16 | Electrocardiograph Report ---
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
[2019-07-13] MEDS ORDERED: FLU Vac QV 19-20 (6Month+)/PF 0.5 ML SYRINGE IM ONE (16:30)
== END 2019-07-13 17:13 | disposition home or self-care (01) | DRG 140 ==
LOC: EMEROOARM 16:37 → SUATTDRO 18:24 → 2NENU 18:24
PROVIDERS: ADMIT Student in an Organized Health Care Education/Training Program; ATTEND Internal Medicine

== ENCOUNTER 2019-10-28 12:54 | Inpatient (IN) ==
[2019-10-28] MEDS ORDERED: predniSONE 20 MG TABLET PO ONE (12:59)
[2019-10-28] MEDS ORDERED: Ipratropium/Albuterol Neb 3 ML IH ONE (12:59)
[2019-10-28 13:26] LABS: Basophils % 0.4 %; Eosinophils % 0.4 %; Hematocrit 37.7 % (35.3-44.9); Hemoglobin 12.4 g/dL (11.5-15.4); Immature Granulocytes % 0.6 % (0-4); Lymphocytes # 0.9 K/mcL (0.6-4.6); Lymphocytes % 12.8 %; Mean Corpuscular HGB Conc 32.9 g/dL (31.6-35.5); Mean Corpuscular Hemoglobin 27.5 pg (28.0-33.3); Mean Corpuscular Volume 83.6 fL (83.0-100.0); Mean Platelet Volume 10.8 fL (9.4-12.4); Monocytes # 0.5 K/mcL (0.0-1.3); Monocytes % 6.9 %; Neutrophils # 5.4 K/mcL (1.6-8.9); Platelet Count 191 K/mcL (140-400); Red Blood Count 4.51 M/mcL (3.82-4.97); Red Cell Distribution Width 13.6 % (11.5-14.5); Segmented Neutrophils % 78.9 %; White Blood Count 6.9 K/mcL (4.3-11.1)
[2019-10-28 13:58] LABS: BUN/Creatinine Ratio 15 (6-26); Blood Urea Nitrogen 10 mg/dL (6-20); Carbon Dioxide 23 mEq/L (23-29); Chloride 102 mEq/L (98-107); Glucose 157 mg/dL (70-105); Osmolality,Calculated 284 (280-300); Sodium 136 mEq/L (136-145); Troponin I < 0.03 ng/mL (< 0.04); eGFR For African Americans > 60 (> 60); eGFR For Non-African Americans > 60 (> 60)
[2019-10-28] MEDS ORDERED: cefTRIAXone 1,000 MG in 0.9 % Sodium Chloride Mini Bag 100 ML IVPB ONE (14:37)
[2019-10-28] MEDS ORDERED: 0.9 % Sodium Chloride 1,000 ML IVC ONE (14:38)
[2019-10-28] MEDS ORDERED: *HR* Promethazine 25 MG/ML VIAL IVP PRN (14:41)
[2019-10-28] MEDS ORDERED: Mag Hydrox/Al Hydrox/Simeth 30 ML UDC PO PRN (14:41)
[2019-10-28] MEDS ORDERED: Naloxone 0.4 MG/ML INJ IVP PRN (14:41)
[2019-10-28] MEDS ORDERED: MOM Conc 10 ML UD.LIQ PO PRN (14:41)
[2019-10-28] MEDS ORDERED: Ondansetron 4 MG/2 ML VIAL IVP PRN (14:41)
[2019-10-28] MEDS ORDERED: D5% in Water 1,000 ML IVC PRN (14:42)
[2019-10-28] MEDS ORDERED: *HR* Dextrose 50 % in Water (Syg) 50 ML SYRINGE IVP PRN (14:42)
[2019-10-28] MEDS ORDERED: Dextrose Gel 15 GM/37.5 ML TUBE PO PRN ×2 (14:42)
[2019-10-28] MEDS ORDERED: Ipratropium/Albuterol Neb 3 ML IH PRN (14:43)
[2019-10-28] MEDS ORDERED: cefTRIAXone 1,000 MG in Water for inj. (sterile) 10 ML IVP ONE (15:00)
[2019-10-28] MEDS ORDERED: cefTRIAXone 2,000 MG in 0.9 % Sodium Chloride Mini Bag 100 ML IVPB SCH (15:00)
[2019-10-28] MEDS ORDERED: Acetaminophen 325 MG TABLET PO ONE ×2 (15:25→21:18)
[2019-10-28 17:00] LABS: Adenovirus Not Detected (Not Detect); Bordetella Pertussis Not Detected (Not Detect); Chlamydophila pneumoniae Not Detected (Not Detect); Coronavirus 229E Not Detected (Not Detect); Coronavirus HKU1 Not Detected (Not Detect); Coronavirus NL63 Not Detected (Not Detect); Coronavirus OC43 Not Detected (Not Detect); Human Metapneumovirus DETECTED (Not Detect); Human Rhinovirus/Enterovirus Not Detected (Not Detect); Influenza A Subtype 2009 H1 Not Detected (Not Detect); Influenza A Untypeable Not Detected (Not Detect); Influenza B Not Detected (Not Detect); Mycoplasma pneumoniae Not Detected (Not Detect); Parainfluenza Virus 1 Not Detected (Not Detect); Parainfluenza Virus 2 Not Detected (Not Detect); Parainfluenza Virus 3 Not Detected (Not Detect); Parainfluenza Virus 4 Not Detected (Not Detect); Respiratory Syncytial Virus Not Detected (Not Detect)
[2019-10-28] MEDS: Insulin LISPRO 300 UNITS/3 ML VIAL SQ SCH ×2 (17:23→20:40)
[2019-10-28] MEDS: *HR* Heparin 5,000 UNIT/ML VIAL SQ SCH (17:26)
[2019-10-28] MEDS: Cefepime HCl 2,000 MG in Water for inj. (sterile) 20 ML IVPB SCH (17:34)
[2019-10-28] MEDS: Azithromycin 500 MG in 0.9 % Sodium Chloride 250 ML IVPB SCH (17:37)
[2019-10-28] MEDS: Ipratropium/Albuterol Neb 3 ML IH SCH ×3 (19:32→23:49)
[2019-10-28] MEDS: hydrOXYzine pamoate 25 MG CAPSULE PO SCH (20:39)
[2019-10-28] MEDS: FLUoxetine 20 MG CAPSULE PO SCH (20:40)
[2019-10-28] MEDS: traZODone 50 MG TABLET PO PRN (20:40)
[2019-10-29] MEDS: Ipratropium/Albuterol Neb 3 ML IH SCH ×6 (03:51→23:09)
[2019-10-29 04:14] LABS: Basophils % 0.4 %; Hematocrit 36.8 % (35.3-44.9); Hemoglobin 12.2 g/dL (11.5-15.4); Immature Granulocytes % 1.1 % (0-4); Lymphocytes % 17.9 %; Mean Corpuscular HGB Conc 33.2 g/dL (31.6-35.5); Mean Corpuscular Hemoglobin 27.4 pg (28.0-33.3); Mean Corpuscular Volume 82.7 fL (83.0-100.0); Mean Platelet Volume 10.9 fL (9.4-12.4); Monocytes # 0.6 K/mcL (0.0-1.3); Monocytes % 10.6 %; Neutrophils # 3.8 K/mcL (1.6-8.9); Platelet Count 213 K/mcL (140-400); Red Blood Count 4.45 M/mcL (3.82-4.97); Red Cell Distribution Width 13.7 % (11.5-14.5); White Blood Count 5.5 K/mcL (4.3-11.1)
[2019-10-29 04:30] LABS: BUN/Creatinine Ratio 16 (6-26); Blood Urea Nitrogen 10 mg/dL (6-20); Calcium 8.6 mg/dL (8.6-10.3); Carbon Dioxide 26 mEq/L (23-29); Chloride 106 mEq/L (98-107); Glucose 136 mg/dL (70-105); Osmolality,Calculated 293 (280-300); Potassium 3.6 mEq/L (3.5-5.1); Sodium 141 mEq/L (136-145); eGFR For African Americans > 60 (> 60); eGFR For Non-African Americans > 60 (> 60)
[2019-10-29] MEDS: *HR* Heparin 5,000 UNIT/ML VIAL SQ SCH ×2 (04:59→18:19)
[2019-10-29] MEDS: Cefepime HCl 2,000 MG in Water for inj. (sterile) 20 ML IVPB SCH (05:00)
[2019-10-29] MEDS: Insulin LISPRO 300 UNITS/3 ML VIAL SQ SCH ×4 (10:04→21:46)
[2019-10-29] MEDS: predniSONE 20 MG TABLET PO SCH (10:05)
[2019-10-29] MEDS: Azithromycin 500 MG in 0.9 % Sodium Chloride 250 ML IVPB SCH (16:41)
[2019-10-29] MEDS: FLUoxetine 20 MG CAPSULE PO SCH (21:45)
[2019-10-29] MEDS: traZODone 50 MG TABLET PO PRN (21:45)
[2019-10-29] MEDS: hydrOXYzine pamoate 25 MG CAPSULE PO SCH (21:45)
[2019-10-30] MEDS: Cefepime HCl 2,000 MG in Water for inj. (sterile) 20 ML IVPB SCH ×3 (02:05→18:09)
[2019-10-30] MEDS: Azithromycin 500 MG in 0.9 % Sodium Chloride 250 ML IVPB SCH (02:16)
[2019-10-30] MEDS ORDERED: Acetaminophen 325 MG TABLET PO ONE (02:45)
[2019-10-30] MEDS: Ipratropium/Albuterol Neb 3 ML IH SCH ×6 (04:28→23:06)
[2019-10-30] MEDS ORDERED: *HR* LORazepam 2 MG/ML VIAL IVP ONE (04:30)
[2019-10-30] MEDS: *HR* Heparin 5,000 UNIT/ML VIAL SQ SCH ×2 (05:30→18:09)
[2019-10-30 05:33] LABS: Hematocrit 35.2 % (35.3-44.9); Hemoglobin 11.2 g/dL (11.5-15.4); Mean Corpuscular HGB Conc 31.8 g/dL (31.6-35.5); Mean Corpuscular Hemoglobin 26.7 pg (28.0-33.3); Mean Platelet Volume 11.8 fL (9.4-12.4); Platelet Count 209 K/mcL (140-400); Red Blood Count 4.19 M/mcL (3.82-4.97); Red Cell Distribution Width 14.2 % (11.5-14.5); White Blood Count 7.2 K/mcL (4.3-11.1)
[2019-10-30 05:55] LABS: BUN/Creatinine Ratio 17 (6-26); Blood Urea Nitrogen 12 mg/dL (6-20); Calcium 8.9 mg/dL (8.6-10.3); Carbon Dioxide 25 mEq/L (23-29); Chloride 102 mEq/L (98-107); Glucose 150 mg/dL (70-105); Osmolality,Calculated 295 (280-300); Potassium 3.7 mEq/L (3.5-5.1); Sodium 141 mEq/L (136-145); eGFR For African Americans > 60 (> 60); eGFR For Non-African Americans > 60 (> 60)
[2019-10-30] MEDS ORDERED: Aminoglycoside Consult 1 EACH MC ONE (07:56)
[2019-10-30] MEDS: predniSONE 20 MG TABLET PO SCH (08:26)
[2019-10-30] MEDS: Insulin LISPRO 300 UNITS/3 ML VIAL SQ SCH ×4 (08:27→21:49)
[2019-10-30] MEDS: traZODone 50 MG TABLET PO PRN (21:45)
[2019-10-30] MEDS: FLUoxetine 20 MG CAPSULE PO SCH (21:50)
[2019-10-30] MEDS: hydrOXYzine pamoate 25 MG CAPSULE PO SCH (21:52)
[2019-10-31] MEDS: Azithromycin 500 MG in 0.9 % Sodium Chloride 250 ML IVPB SCH (02:07)
[2019-10-31] MEDS: Ipratropium/Albuterol Neb 3 ML IH SCH ×5 (03:49→20:27)
[2019-10-31] MEDS: Cefepime HCl 2,000 MG in Water for inj. (sterile) 20 ML IVPB SCH ×2 (06:00→17:06)
[2019-10-31] MEDS: *HR* Heparin 5,000 UNIT/ML VIAL SQ SCH ×2 (06:01→17:03)
[2019-10-31] MEDS: Insulin LISPRO 300 UNITS/3 ML VIAL SQ SCH ×4 (08:07→21:33)
[2019-10-31] MEDS: predniSONE 20 MG TABLET PO SCH (09:07)
[2019-10-31] MEDS: Acetaminophen 325 MG TABLET PO PRN (10:48)
[2019-10-31] MEDS: FLUoxetine 20 MG CAPSULE PO SCH (21:44)
[2019-10-31] MEDS: hydrOXYzine pamoate 25 MG CAPSULE PO SCH (21:45)
[2019-10-31] MEDS: traZODone 50 MG TABLET PO PRN (21:45)
[2019-11-01] MEDS: Acetaminophen 325 MG TABLET PO PRN
[2019-11-01] MEDS: Ipratropium/Albuterol Neb 3 ML IH SCH ×4 (00:27→11:14)
[2019-11-01 01:38] LABS: Hematocrit 33.8 % (35.3-44.9); Hemoglobin 10.7 g/dL (11.5-15.4); Mean Corpuscular HGB Conc 31.7 g/dL (31.6-35.5); Mean Corpuscular Hemoglobin 27.2 pg (28.0-33.3); Mean Platelet Volume 10.8 fL (9.4-12.4); Platelet Count 204 K/mcL (140-400); Red Blood Count 3.93 M/mcL (3.82-4.97); Red Cell Distribution Width 13.6 % (11.5-14.5)
[2019-11-01 02:02] LABS: BUN/Creatinine Ratio 28 (6-26); Blood Urea Nitrogen 17 mg/dL (6-20); Carbon Dioxide 27 mEq/L (23-29); Chloride 102 mEq/L (98-107); Glucose 137 mg/dL (70-105); Osmolality,Calculated 292 (280-300); Potassium 3.5 mEq/L (3.5-5.1); Sodium 139 mEq/L (136-145); eGFR For African Americans > 60 (> 60); eGFR For Non-African Americans > 60 (> 60)
[2019-11-01] MEDS: Azithromycin 500 MG in 0.9 % Sodium Chloride 250 ML IVPB SCH (03:00)
[2019-11-01] MEDS: *HR* Heparin 5,000 UNIT/ML VIAL SQ SCH (05:38)
[2019-11-01] MEDS: Cefepime HCl 2,000 MG in Water for inj. (sterile) 20 ML IVPB SCH (05:39)
[2019-11-01] MEDS: predniSONE 20 MG TABLET PO SCH (08:35)
[2019-11-01] MEDS: Insulin LISPRO 300 UNITS/3 ML VIAL SQ SCH ×2 (10:20→13:44)
[2019-11-01 10:43] VITALS: BP 160/89
== END 2019-11-01 14:20 | disposition home or self-care (01) | DRG 139 ==
LOC: EMEROOARM 12:54 → 3BNU 12:54
PROVIDERS: ADMIT Internal Medicine; ATTEND Internal Medicine

== ENCOUNTER 2019-12-27 18:18 | Observation (INO) ==
[2019-12-27] MEDS ORDERED: Ipratropium/Albuterol Neb 3 ML IH ONE (18:25)
[2019-12-27] MEDS ORDERED: diazePAM 10 MG/2 ML SYRINGE IVP ONE (19:15)
[2019-12-27] MEDS: diazePAM 10 MG/2 ML SYRINGE IVP ONE ×2 (19:17→19:18)
[2019-12-27] MEDS ORDERED: Aspirin 325 MG TABLET PO ONE (20:13)
[2019-12-27 20:17] LABS: Basophils % 0.4 %; Eosinophils # 0.2 K/mcL (0.0-0.6); Eosinophils % 2.9 %; Hematocrit 36.3 % (35.3-44.9); Hemoglobin 11.4 g/dL (11.5-15.4); Immature Granulocytes % 0.4 % (0-4); Lymphocytes # 2.6 K/mcL (0.6-4.6); Lymphocytes % 34.2 %; Mean Corpuscular HGB Conc 31.4 g/dL (31.6-35.5); Mean Corpuscular Volume 85.8 fL (83.0-100.0); Mean Platelet Volume 11.1 fL (9.4-12.4); Monocytes # 0.6 K/mcL (0.0-1.3); Monocytes % 7.8 %; Neutrophils # 4.1 K/mcL (1.6-8.9); Platelet Count 237 K/mcL (140-400); Red Blood Count 4.23 M/mcL (3.82-4.97); Red Cell Distribution Width 13.5 % (11.5-14.5); Segmented Neutrophils % 54.3 %; White Blood Count 7.6 K/mcL (4.3-11.1)
[2019-12-27] MEDS ORDERED: *HR* Promethazine 25 MG/ML VIAL IVP ONE (20:30)
[2019-12-27 20:37] LABS: BUN/Creatinine Ratio 17 (6-26); Blood Urea Nitrogen 10 mg/dL (6-20); Calcium 8.9 mg/dL (8.6-10.3); Carbon Dioxide 26 mEq/L (23-29); Chloride 105 mEq/L (98-107); Glucose 108 mg/dL (70-105); Osmolality,Calculated 288 (280-300); Potassium 4.1 mEq/L (3.5-5.1); Sodium 139 mEq/L (136-145); eGFR For African Americans > 60 (> 60); eGFR For Non-African Americans > 60 (> 60)
[2019-12-27 20:38] LABS: Troponin I < 0.03 ng/mL (< 0.04)
[2019-12-27] MEDS ORDERED: Acetaminophen 325 MG TABLET PO PRN (23:13)
[2019-12-27] MEDS ORDERED: Naloxone 0.4 MG/ML INJ IVP PRN (23:13)
[2019-12-28] MEDS ORDERED: *HR* Dextrose 50 % in Water (Syg) 50 ML SYRINGE IVP PRN (02:13)
[2019-12-28] MEDS ORDERED: D5% in Water 1,000 ML IVC PRN (02:13)
[2019-12-28] MEDS ORDERED: Dextrose Gel 15 GM/37.5 ML TUBE PO PRN ×2 (02:13)
[2019-12-28] MEDS ORDERED: Ipratropium/Albuterol Neb 3 ML IH PRN (02:37)
[2019-12-28] MEDS: *HR* Heparin 5,000 UNIT/ML VIAL SQ SCH ×3 (04:35→19:57)
[2019-12-28 05:13] LABS: Basophils % 0.4 %; Eosinophils # 0.2 K/mcL (0.0-0.6); Eosinophils % 2.5 %; Hemoglobin 10.6 g/dL (11.5-15.4); Immature Granulocytes % 0.5 % (0-4); Lymphocytes # 2.4 K/mcL (0.6-4.6); Lymphocytes % 32.4 %; Mean Corpuscular HGB Conc 31.2 g/dL (31.6-35.5); Mean Corpuscular Hemoglobin 26.9 pg (28.0-33.3); Mean Corpuscular Volume 86.3 fL (83.0-100.0); Mean Platelet Volume 11.1 fL (9.4-12.4); Monocytes # 0.5 K/mcL (0.0-1.3); Monocytes % 6.8 %; Neutrophils # 4.3 K/mcL (1.6-8.9); Platelet Count 226 K/mcL (140-400); Red Blood Count 3.94 M/mcL (3.82-4.97); Red Cell Distribution Width 13.9 % (11.5-14.5); Segmented Neutrophils % 57.4 %; White Blood Count 7.5 K/mcL (4.3-11.1)
[2019-12-28 05:30] LABS: BUN/Creatinine Ratio 18 (6-26); Blood Urea Nitrogen 11 mg/dL (6-20); Calcium 8.8 mg/dL (8.6-10.3); Carbon Dioxide 28 mEq/L (23-29); Chloride 105 mEq/L (98-107); Glucose 144 mg/dL (70-105); Osmolality,Calculated 294 (280-300); Potassium 3.7 mEq/L (3.5-5.1); Sodium 141 mEq/L (136-145); eGFR For African Americans > 60 (> 60); eGFR For Non-African Americans > 60 (> 60)
[2019-12-28 05:31] LABS: Chol/HDL Ratio 4.5 (0-4.9); Magnesium 1.9 mg/dL (1.6-2.6)
[2019-12-28 05:33] LABS: Alanine Aminotransferase 18 Units/L (7-52); Albumin 3.7 g/dL (3.5-5.7); Albumin/Globulin Ratio 1.7 (1.1-2.2); Alkaline Phosphatase 88 Units/L (34-104); Aspartate Amino Transferase 17 Units/L (13-39); BUN/Creatinine Ratio 18 (6-26); Bilirubin,Total 0.3 mg/dL (0.3-1.0); Blood Urea Nitrogen 11 mg/dL (6-20); Calcium 8.8 mg/dL (8.6-10.3); Carbon Dioxide 28 mEq/L (23-29); Chloride 106 mEq/L (98-107); Globulin 2.2 g/dL (2.4-3.5); Glucose 144 mg/dL (70-105); Osmolality,Calculated 294 (280-300); Potassium 3.8 mEq/L (3.5-5.1); Sodium 141 mEq/L (136-145); Total Protein 5.9 g/dL (6.4-8.9); eGFR For African Americans > 60 (> 60); eGFR For Non-African Americans > 60 (> 60)
[2019-12-28] MEDS ORDERED: Isovue-370 500 ML BOTTLE IVP ONE (08:05)
[2019-12-28 08:31] LABS: Estimated Average Glucose 151 mg/dl
[2019-12-28] MEDS ORDERED: *HR* LORazepam 2 MG/ML VIAL IVP ONE (09:01)
[2019-12-28] MEDS: Insulin LISPRO 300 UNITS/3 ML VIAL SQ SCH ×3 (09:58→17:13)
[2019-12-28] MEDS: Insulin DETEMIR 100 UNIT/ML X5UNITS SQ SCH (10:03)
[2019-12-28] MEDS: Aspirin Enteric Coated 81 MG Tablet PO SCH (10:03)
[2019-12-28] MEDS: FLUoxetine 20 MG CAPSULE PO SCH (19:58)
[2019-12-29] MEDS: Fluticasone Propionate Nasal 50 MCG/SPRAY BOTTLE NS SCH ×2 (00:04→07:57)
[2019-12-29] MEDS: *HR* Heparin 5,000 UNIT/ML VIAL SQ SCH ×3 (05:02→21:55)
[2019-12-29] MEDS: Aspirin Enteric Coated 81 MG Tablet PO SCH (07:56)
[2019-12-29] MEDS: Insulin DETEMIR 100 UNIT/ML X5UNITS SQ SCH (07:57)
[2019-12-29] MEDS: Insulin LISPRO 300 UNITS/3 ML VIAL SQ SCH ×3 (10:12→17:08)
[2019-12-29] MEDS: FLUoxetine 20 MG CAPSULE PO SCH (21:54)
[2019-12-29] MEDS: traZODone 50 MG TABLET PO PRN (21:54)
[2019-12-30] MEDS: Ondansetron 4 MG/2 ML VIAL IVP PRN (02:03)
[2019-12-30 04:36] LABS: Hematocrit 33.6 % (35.3-44.9); Hemoglobin 10.7 g/dL (11.5-15.4); Mean Corpuscular HGB Conc 31.8 g/dL (31.6-35.5); Mean Corpuscular Hemoglobin 27.6 pg (28.0-33.3); Mean Corpuscular Volume 86.8 fL (83.0-100.0); Mean Platelet Volume 10.9 fL (9.4-12.4); Platelet Count 211 K/mcL (140-400); Red Blood Count 3.87 M/mcL (3.82-4.97); Red Cell Distribution Width 13.5 % (11.5-14.5); White Blood Count 7.7 K/mcL (4.3-11.1)
[2019-12-30 04:54] LABS: BUN/Creatinine Ratio 25 (6-26); Blood Urea Nitrogen 17 mg/dL (6-20); Calcium 8.9 mg/dL (8.6-10.3); Carbon Dioxide 28 mEq/L (23-29); Chloride 102 mEq/L (98-107); Glucose 139 mg/dL (70-105); Osmolality,Calculated 290 (280-300); Potassium 3.9 mEq/L (3.5-5.1); Sodium 138 mEq/L (136-145); eGFR For African Americans > 60 (> 60); eGFR For Non-African Americans > 60 (> 60)
[2019-12-30] MEDS: *HR* Heparin 5,000 UNIT/ML VIAL SQ SCH ×3 (05:08→20:31)
[2019-12-30] MEDS: Insulin DETEMIR 100 UNIT/ML X5UNITS SQ SCH (07:46)
[2019-12-30] MEDS: Aspirin Enteric Coated 81 MG Tablet PO SCH (07:46)
[2019-12-30] MEDS: Fluticasone Propionate Nasal 50 MCG/SPRAY BOTTLE NS SCH (07:47)
[2019-12-30] MEDS: Insulin LISPRO 300 UNITS/3 ML VIAL SQ SCH ×3 (07:47→16:31)
[2019-12-30] MEDS: *HR* HYDROcodone/Acet 10/325 mg TABLET PO PRN ×2 (14:19→20:31)
[2019-12-30] MEDS: FLUoxetine 20 MG CAPSULE PO SCH (20:30)
[2019-12-30] MEDS: traZODone 50 MG TABLET PO PRN (20:31)
[2019-12-31 02:00] LABS: Hemoglobin 10.8 g/dL (11.5-15.4); Mean Corpuscular HGB Conc 30.9 g/dL (31.6-35.5); Mean Corpuscular Hemoglobin 26.7 pg (28.0-33.3); Mean Corpuscular Volume 86.6 fL (83.0-100.0); Mean Platelet Volume 10.9 fL (9.4-12.4); Platelet Count 226 K/mcL (140-400); Red Blood Count 4.04 M/mcL (3.82-4.97); Red Cell Distribution Width 13.3 % (11.5-14.5); White Blood Count 7.7 K/mcL (4.3-11.1)
[2019-12-31 02:20] LABS: BUN/Creatinine Ratio 21 (6-26); Blood Urea Nitrogen 16 mg/dL (6-20); Calcium 8.9 mg/dL (8.6-10.3); Carbon Dioxide 32 mEq/L (23-29); Chloride 102 mEq/L (98-107); Glucose 120 mg/dL (70-105); Osmolality,Calculated 286 (280-300); Potassium 4.1 mEq/L (3.5-5.1); Sodium 137 mEq/L (136-145); eGFR For African Americans > 60 (> 60); eGFR For Non-African Americans > 60 (> 60)
[2019-12-31] MEDS: Ondansetron 4 MG/2 ML VIAL IVP PRN (02:39)
[2019-12-31] MEDS: *HR* Heparin 5,000 UNIT/ML VIAL SQ SCH ×2 (05:15→14:53)
[2019-12-31] MEDS: Insulin LISPRO 300 UNITS/3 ML VIAL SQ SCH ×2 (08:32→13:26)
[2019-12-31] MEDS: Aspirin Enteric Coated 81 MG Tablet PO SCH (08:34)
[2019-12-31] MEDS: Fluticasone Propionate Nasal 50 MCG/SPRAY BOTTLE NS SCH (08:35)
[2019-12-31] MEDS: Insulin DETEMIR 100 UNIT/ML X5UNITS SQ SCH (08:37)
[2019-12-31] MEDS ORDERED: Topiramate 25 MG CAP.SPRINK PO SCH (09:00)
[2019-12-31 15:34] VITALS: BP 147/70
== END 2019-12-31 16:47 ==
LOC: 3BNU 18:18 → EMEROOARM 18:18 → SUATTDRO 21:23 → 3BNU 21:56
PROVIDERS: ADMIT Pharmacist; ATTEND Pharmacist

== ENCOUNTER 2020-03-18 16:11 | Observation (INO) ==
[2020-03-18] MEDS ORDERED: Aspirin 81 MG TAB.CHEW PO STA (16:39)
[2020-03-18 18:13] LABS: Bilirubin,Urine Negative (Negative); Blood,Urine Negative (Negative); Clarity,Urine Clear (Clear); Color,Urine Yellow (Yellow); Glucose,Urine (UA) 100 mg/dL (Normal); Ketones,Urine Negative (Negative); Leukocyte Esterase,Urine Small (Negative); Nitrite,Urine Negative (Negative); PH,Urine 6.5 pH Units (5.0-8.0); Protein,Urine Negative (Neg-Trace); Specific Gravity,Urine 1.028 (1.010-1.025); Urobilinogen,Urine Normal (Normal)
[2020-03-18 18:35] LABS: Squamous Epithelial Cell,Urine Many per lpf (None-Few)
[2020-03-18 18:36] LABS: Mucus,Urine Few per lpf (Few); RBC,Urine 0-3 per hpf (0-3); WBC,Urine 0-3 per hpf (0-3)
[2020-03-18 18:42] LABS: Basophils % 0.3 %; Eosinophils # 0.1 K/mcL (0.0-0.6); Eosinophils % 1.4 %; Hemoglobin 11.2 g/dL (11.5-15.4); Immature Granulocytes % 0.9 % (0-4); Lymphocytes # 2.3 K/mcL (0.6-4.6); Lymphocytes % 26.9 %; Mean Corpuscular HGB Conc 31.1 g/dL (31.6-35.5); Mean Corpuscular Hemoglobin 27.3 pg (28.0-33.3); Mean Corpuscular Volume 87.8 fL (83.0-100.0); Mean Platelet Volume 11.3 fL (9.4-12.4); Monocytes # 0.5 K/mcL (0.0-1.3); Monocytes % 5.5 %; Neutrophils # 5.6 K/mcL (1.6-8.9); Platelet Count 194 K/mcL (140-400); Red Cell Distribution Width 13.6 % (11.5-14.5); White Blood Count 8.6 K/mcL (4.3-11.1)
[2020-03-18 19:06] LABS: Alanine Aminotransferase 27 Units/L (7-52); Albumin 3.9 g/dL (3.5-5.7); Albumin/Globulin Ratio 1.6 (1.1-2.2); Alkaline Phosphatase 84 Units/L (34-104); Aspartate Amino Transferase 21 Units/L (13-39); BUN/Creatinine Ratio 16 (6-26); Bilirubin,Direct 0.1 mg/dL (0.0-0.2); Bilirubin,Indirect 0.3 mg/dL (0.0-1.0); Bilirubin,Total 0.4 mg/dL (0.3-1.0); Blood Urea Nitrogen 10 mg/dL (6-20); Calcium 8.9 mg/dL (8.6-10.3); Carbon Dioxide 28 mEq/L (23-29); Chloride 103 mEq/L (98-107); Globulin 2.5 g/dL (2.4-3.5); Glucose 129 mg/dL (70-105); Osmolality,Calculated 293 (280-300); Potassium 3.8 mEq/L (3.5-5.1); Sodium 141 mEq/L (136-145); Total Protein 6.4 g/dL (6.4-8.9); Troponin I < 0.03 ng/mL (< 0.04); eGFR For African Americans > 60 (> 60); eGFR For Non-African Americans > 60 (> 60)
[2020-03-19] MEDS ORDERED: Naloxone 0.4 MG/ML INJ IVP PRN (01:02)
[2020-03-19] MEDS ORDERED: *HR* Dextrose 50 % in Water (Syg) 50 ML SYRINGE IVP PRN (01:08)
[2020-03-19] MEDS ORDERED: Dextrose Gel 15 GM/37.5 ML TUBE PO PRN ×2 (01:08)
[2020-03-19] MEDS ORDERED: D5% in Water 1,000 ML IVC PRN (01:08)
[2020-03-19] MEDS ORDERED: Furosemide 20 MG/2 ML VIAL IVP ONE (01:09)
[2020-03-19] MEDS ORDERED: Ipratropium/Albuterol Neb 3 ML IH PRN (04:54)
[2020-03-19] MEDS: *HR* Heparin 5,000 UNIT/ML VIAL SQ SCH ×2 (05:40→16:31)
[2020-03-19 06:48] LABS: BUN/Creatinine Ratio 17 (6-26); Blood Urea Nitrogen 11 mg/dL (6-20); Calcium 8.7 mg/dL (8.6-10.3); Carbon Dioxide 30 mEq/L (23-29); Chloride 102 mEq/L (98-107); Glucose 113 mg/dL (70-105); Magnesium 1.8 mg/dL (1.6-2.6); Osmolality,Calculated 290 (280-300); Phosphorous 4.3 mg/dL (2.7-4.5); Potassium 3.8 mEq/L (3.5-5.1); Sodium 140 mEq/L (136-145); eGFR For African Americans > 60 (> 60); eGFR For Non-African Americans > 60 (> 60)
[2020-03-19] MEDS: Insulin LISPRO 300 UNITS/3 ML VIAL SQ SCH ×3 (07:36→16:31)
[2020-03-19] MEDS ORDERED: Ondansetron ODT 4 MG TAB.RAPDIS SL PRN (08:07)
[2020-03-19 08:08] LABS: Hematocrit 33.7 % (35.3-44.9); Mean Corpuscular HGB Conc 32.6 g/dL (31.6-35.5); Mean Corpuscular Volume 85.8 fL (83.0-100.0); Mean Platelet Volume 11.1 fL (9.4-12.4); Platelet Count 179 K/mcL (140-400); Red Blood Count 3.93 M/mcL (3.82-4.97); Red Cell Distribution Width 13.6 % (11.5-14.5); White Blood Count 7.6 K/mcL (4.3-11.1)
[2020-03-19] MEDS ORDERED: predniSONE 5 MG TABLET PO SCH (08:15)
[2020-03-19] MEDS: Aspirin Enteric Coated 81 MG Tablet PO SCH (08:47)
[2020-03-19] MEDS: Topiramate 25 MG CAP.SPRINK PO SCH (08:47)
[2020-03-19] MEDS: Furosemide 20 MG/2 ML VIAL IVP SCH ×2 (08:47→21:02)
[2020-03-19] MEDS: Gabapentin 100 MG CAPSULE PO SCH ×2 (08:47→21:02)
[2020-03-19] MEDS: Ipratropium/Albuterol Neb 3 ML IH SCH ×3 (11:07→21:44)
[2020-03-19] MEDS ORDERED: Acetaminophen 325 MG TABLET PO PRN (16:30)
[2020-03-19] MEDS ORDERED: Insulin LISPRO 300 UNITS/3 ML VIAL SQ SCH (21:00)
[2020-03-19] MEDS ORDERED: traZODone 50 MG TABLET PO SCH (21:00)
[2020-03-19] MEDS ORDERED: FLUoxetine 20 MG CAPSULE PO SCH (21:00)
[2020-03-19] MEDS ORDERED: *HR* LORazepam 0.5 MG TABLET PO SCH (21:00)
[2020-03-20] MEDS: Ipratropium/Albuterol Neb 3 ML IH SCH (05:07)
[2020-03-20] MEDS: *HR* Heparin 5,000 UNIT/ML VIAL SQ SCH (05:23)
[2020-03-20 05:52] LABS: BUN/Creatinine Ratio 25 (6-26); Blood Urea Nitrogen 16 mg/dL (6-20); Calcium 8.9 mg/dL (8.6-10.3); Carbon Dioxide 32 mEq/L (23-29); Chloride 100 mEq/L (98-107); Glucose 162 mg/dL (70-105); Osmolality,Calculated 295 (280-300); Potassium 3.7 mEq/L (3.5-5.1); Sodium 140 mEq/L (136-145); eGFR For African Americans > 60 (> 60); eGFR For Non-African Americans > 60 (> 60)
[2020-03-20 06:41] VITALS: BP 106/67
[2020-03-20] MEDS: Aspirin Enteric Coated 81 MG Tablet PO SCH (08:17)
[2020-03-20] MEDS: Topiramate 25 MG CAP.SPRINK PO SCH (08:17)
[2020-03-20] MEDS: Furosemide 20 MG/2 ML VIAL IVP SCH (08:17)
[2020-03-20] MEDS: Gabapentin 100 MG CAPSULE PO SCH (08:17)
[2020-03-20] MEDS: Insulin LISPRO 300 UNITS/3 ML VIAL SQ SCH (08:20)
[2020-03-20] MEDS ORDERED: predniSONE 5 MG TABLET PO SCH (09:00)
== END 2020-03-20 10:20 | disposition home or self-care (01) ==
LOC: EMEROOARM 16:11 → 3BNU 16:11
PROVIDERS: ADMIT Internal Medicine; ATTEND Internal Medicine

== ENCOUNTER 2021-01-11 11:47 | Observation (INO) ==
[2021-01-11 12:40] LABS: Basophils # 0.1 K/mcL (0.0-0.2); Basophils % 0.5 %; Eosinophils # 0.2 K/mcL (0.0-0.6); Eosinophils % 1.7 %; Hematocrit 41.4 % (35.3-44.9); Hemoglobin 13.2 g/dL (11.5-15.4); Immature Granulocytes % 0.3 % (0-4); Lymphocytes # 3.3 K/mcL (0.6-4.6); Lymphocytes % 31.7 %; Mean Corpuscular HGB Conc 31.9 g/dL (31.6-35.5); Mean Corpuscular Hemoglobin 25.6 pg (28.0-33.3); Mean Corpuscular Volume 80.4 fL (83.0-100.0); Mean Platelet Volume 10.9 fL (9.4-12.4); Monocytes # 0.7 K/mcL (0.0-1.3); Monocytes % 6.2 %; Neutrophils # 6.2 K/mcL (1.6-8.9); Platelet Count 247 K/mcL (140-400); Red Blood Count 5.15 M/mcL (3.82-4.97); Red Cell Distribution Width 14.9 % (11.5-14.5); Segmented Neutrophils % 59.6 %; White Blood Count 10.4 K/mcL (4.3-11.1)
[2021-01-11] MEDS ORDERED: Ondansetron 4 MG/2 ML VIAL IVP ONE (12:40)
[2021-01-11] MEDS ORDERED: Aspirin 81 MG TAB.CHEW PO ONE (12:40)
[2021-01-11 13:03] LABS: INR 1.1; Prothrombin Time 12.4 Seconds (9.4-12.1)
[2021-01-11] MEDS ORDERED: Gadolinium Contrast Agent (WT Based) IV PRN (13:05)
[2021-01-11 13:06] LABS: Activated Partial Thrombo Time 30.9 Seconds (26.0-36.0)
[2021-01-11 13:16] LABS: Alanine Aminotransferase 16 Units/L (7-52); Albumin 4.5 g/dL (3.5-5.7); Albumin/Globulin Ratio 1.7 (1.1-2.2); Alkaline Phosphatase 91 Units/L (34-104); Aspartate Amino Transferase 15 Units/L (13-39); BUN/Creatinine Ratio 29 (6-26); Bilirubin,Direct 0.1 mg/dL (0.0-0.2); Bilirubin,Indirect 0.4 mg/dL (0.0-1.0); Bilirubin,Total 0.5 mg/dL (0.3-1.0); Blood Urea Nitrogen 19 mg/dL (6-20); C-Reactive Protein 9 mg/L (Less than 10); Calcium 9.5 mg/dL (8.6-10.3); Carbon Dioxide 26 mEq/L (23-29); Chloride 105 mEq/L (98-107); Globulin 2.7 g/dL (2.4-3.5); Glucose 93 mg/dL (70-105); Lipase 48 Units/L (11-82); Osmolality,Calculated 290 (280-300); Phosphorous 3.3 mg/dL (2.7-4.5); Potassium 4.2 mEq/L (3.5-5.1); Sodium 139 mEq/L (136-145); Total Protein 7.2 g/dL (6.4-8.9); Troponin I < 0.03 ng/mL (< 0.04); eGFR For African Americans > 60 (> 60); eGFR For Non-African Americans > 60 (> 60)
[2021-01-11 13:47] LABS: Creatine Kinase 51 Units/L (30-223); Ethanol < 10 mg/dL (Less than 10)
[2021-01-11 14:36] LABS: Bilirubin,Urine Negative (Negative); Blood,Urine Negative (Negative); Clarity,Urine Clear (Clear); Color,Urine Light-Yellow (Yellow); Glucose,Urine (UA) Normal (Normal); Ketones,Urine Negative (Negative); Leukocyte Esterase,Urine Negative (Negative); Nitrite,Urine Negative (Negative); Protein,Urine Negative (Neg-Trace); Specific Gravity,Urine 1.025 (1.010-1.025)
[2021-01-11 14:38] LABS: Amphetamine Screen,Urine Negative ng/mL (Cutoff=1000); Barbiturate Screen,Urine Negative ng/mL (Cutoff=200); Benzodiazepines Screen,Urine Negative ng/mL (Cutoff=200); Cannabinoid Screen,Urine Negative ng/mL (Cutoff = 50); Cocaine Screen,Urine Negative ng/mL (Cutoff= 300); Opiate Screen,Urine Negative ng/mL (Cutoff=300); Phencyclidine Screen,Urine Negative ng/mL (Cutoff=25)
[2021-01-11] MEDS ORDERED: Naloxone 0.4 MG/ML INJ IVP PRN (15:38)
[2021-01-11] MEDS ORDERED: D5% in Water 1,000 ML IVC PRN (15:42)
[2021-01-11] MEDS ORDERED: Dextrose Gel 15 GM/37.5 ML TUBE PO PRN ×2 (15:42)
[2021-01-11] MEDS ORDERED: *HR* Dextrose 50 % in Water (Vial) 50 ML VIAL IVP PRN (15:42)
[2021-01-11] MEDS ORDERED: *HR* LORazepam 2 MG/ML VIAL IVP ONE (16:04)
[2021-01-11] MEDS ORDERED: Perflutren Lipid Microsphere 1.3 ML in 0.9 % Sodium Chloride 8.7 ML IVP PRN (16:25)
[2021-01-11] MEDS ORDERED: Acetaminophen 325 MG TABLET PO ONE (16:35)
[2021-01-11] MEDS: Ondansetron 4 MG/2 ML VIAL IVP PRN (17:06)
[2021-01-11] MEDS ORDERED: MethylPREDNISolone 40 MG/ML VIAL IVP ONE (17:44)
[2021-01-11] MEDS ORDERED: Insulin LISPRO 300 UNITS/3 ML VIAL SUBQ SCH (18:00)
[2021-01-11] MEDS ORDERED: *HR* HYDROcodone/Acet 5/325 mg TABLET PO ONE (20:14)
[2021-01-11] MEDS ORDERED: Metoclopramide 10 MG/2 ML VIAL IVP ONE (21:30)
[2021-01-11] MEDS ORDERED: BECLOMETHASONE DIPROPIONATE IH PRN (23:17)
[2021-01-12] MEDS: Insulin LISPRO 300 UNITS/3 ML VIAL SUBQ SCH ×5 (00:01→19:54)
[2021-01-12] MEDS: *HR* LORazepam 0.5 MG TABLET PO SCH ×2 (00:07→19:53)
[2021-01-12] MEDS: Gabapentin 300 MG CAPSULE PO SCH ×2 (00:07→19:53)
[2021-01-12 00:43] LABS: Hematocrit 43.3 % (35.3-44.9); Hemoglobin 13.5 g/dL (11.5-15.4); Mean Corpuscular HGB Conc 31.2 g/dL (31.6-35.5); Mean Corpuscular Hemoglobin 25.9 pg (28.0-33.3); Mean Platelet Volume 11.1 fL (9.4-12.4); Platelet Count 263 K/mcL (140-400); Red Blood Count 5.22 M/mcL (3.82-4.97); Red Cell Distribution Width 14.8 % (11.5-14.5); White Blood Count 9.9 K/mcL (4.3-11.1)
[2021-01-12 00:51] LABS: INR 1.1; Prothrombin Time 12.3 Seconds (9.4-12.1)
[2021-01-12 00:54] LABS: Activated Partial Thrombo Time 32.6 Seconds (26.0-36.0)
[2021-01-12 01:01] LABS: BUN/Creatinine Ratio 28 (6-26); Blood Urea Nitrogen 20 mg/dL (6-20); Calcium 9.5 mg/dL (8.6-10.3); Carbon Dioxide 24 mEq/L (23-29); Chloride 102 mEq/L (98-107); Chol/HDL Ratio 3.6 (0-4.9); Cholesterol 174 mg/dL (< 200); Glucose 267 mg/dL (70-105); HDL Cholesterol 49 mg/dL (40-59); LDL Cholesterol,Calculated 109 mg/dL (< 100); Osmolality,Calculated 292 (280-300); Potassium 4.5 mEq/L (3.5-5.1); Sodium 135 mEq/L (136-145); Triglycerides 81 mg/dL (< 150); eGFR For African Americans > 60 (> 60); eGFR For Non-African Americans > 60 (> 60)
[2021-01-12 04:12] LABS: Estimated Average Glucose 134 mg/dl; Hemoglobin A1C 6.3 %
[2021-01-12] MEDS ORDERED: Ipratropium/Albuterol Neb 3 ML IH PRN (05:00)
[2021-01-12] MEDS: Aspirin Enteric Coated 81 MG Tablet PO SCH (08:19)
[2021-01-12] MEDS: *HR* Glimepiride 4 MG TABLET PO SCH (08:19)
[2021-01-12] MEDS: FLUoxetine 20 MG CAPSULE PO SCH (08:20)
[2021-01-12] MEDS: Spironolactone 25 MG TABLET PO SCH (08:20)
[2021-01-12] MEDS: Ondansetron 4 MG/2 ML VIAL IVP PRN ×2 (11:52→20:00)
[2021-01-12] MEDS: Acetaminophen 325 MG TABLET PO PRN ×2 (11:52→17:55)
[2021-01-12] MEDS ORDERED: predniSONE 20 MG TABLET PO SCH (18:30)
[2021-01-13 06:06] LABS: Hematocrit 42.5 % (35.3-44.9); Hemoglobin 13.2 g/dL (11.5-15.4); Mean Corpuscular HGB Conc 31.1 g/dL (31.6-35.5); Mean Corpuscular Hemoglobin 25.6 pg (28.0-33.3); Mean Corpuscular Volume 82.4 fL (83.0-100.0); Mean Platelet Volume 11.3 fL (9.4-12.4); Platelet Count 288 K/mcL (140-400); Red Blood Count 5.16 M/mcL (3.82-4.97); Red Cell Distribution Width 15.1 % (11.5-14.5); White Blood Count 12.7 K/mcL (4.3-11.1)
[2021-01-13 06:25] LABS: BUN/Creatinine Ratio 34 (6-26); Blood Urea Nitrogen 22 mg/dL (6-20); Calcium 9.4 mg/dL (8.6-10.3); Carbon Dioxide 27 mEq/L (23-29); Chloride 103 mEq/L (98-107); Glucose 183 mg/dL (70-105); Osmolality,Calculated 290 (280-300); Potassium 4.9 mEq/L (3.5-5.1); Sodium 136 mEq/L (136-145); eGFR For African Americans > 60 (> 60); eGFR For Non-African Americans > 60 (> 60)
[2021-01-13 06:32] VITALS: BP 118/75
[2021-01-13] MEDS: FLUoxetine 20 MG CAPSULE PO SCH (08:28)
[2021-01-13] MEDS: Spironolactone 25 MG TABLET PO SCH (08:28)
[2021-01-13] MEDS: Aspirin Enteric Coated 81 MG Tablet PO SCH (08:29)
[2021-01-13] MEDS: *HR* Glimepiride 4 MG TABLET PO SCH (08:29)
[2021-01-13] MEDS: Insulin LISPRO 300 UNITS/3 ML VIAL SUBQ SCH (08:36)
[2021-01-13] MEDS ORDERED: polyethylene glycoL 3350 17 GM POWD.PACK PO ONE (08:42)
[2021-01-13] MEDS: Ondansetron 4 MG/2 ML VIAL IVP PRN (11:23)
== END 2021-01-13 11:55 | disposition home or self-care (01) ==
LOC: EMEROOARM 11:47 → 3BNU 11:47 → SUATTDRO 15:13 → 3BNU 15:34
PROVIDERS: ADMIT Family Medicine; ATTEND Nurse Practitioner

== ENCOUNTER 2021-10-31 11:21 | Observation (INO) ==
[2021-10-31] MEDS ORDERED: Isovue-370 500 ML BOTTLE IVP ONE (13:12)
[2021-10-31 13:34] LABS: INR 1.1; Prothrombin Time 12.4 Seconds (9.4-12.1)
[2021-10-31 13:36] LABS: Activated Partial Thrombo Time 37.6 Seconds (26.0-36.0)
[2021-10-31 13:44] LABS: BUN/Creatinine Ratio 32 (6-26); Blood Urea Nitrogen 19 mg/dL (6-20); Calcium 9.2 mg/dL (8.6-10.3); Carbon Dioxide 29 mEq/L (23-29); Chloride 108 mEq/L (98-107); Glucose 101 mg/dL (70-105); Magnesium 1.9 mg/dL (1.6-2.6); Osmolality,Calculated 298 (280-300); Sodium 143 mEq/L (136-145); eGFR For African Americans > 60 (> 60); eGFR For Non-African Americans > 60 (> 60)
[2021-10-31 13:45] LABS: Troponin I < 0.03 ng/mL (< 0.04)
[2021-10-31 13:48] LABS: Basophils % 0.4 %; Eosinophils # 0.1 K/mcL (0.0-0.6); Eosinophils % 1.6 %; Hematocrit 37.6 % (35.3-44.9); Hemoglobin 12.1 g/dL (11.5-15.4); Immature Granulocytes % 0.2 % (0-4); Lymphocytes # 2.5 K/mcL (0.6-4.6); Lymphocytes % 30.2 %; Mean Corpuscular HGB Conc 32.2 g/dL (31.6-35.5); Mean Corpuscular Hemoglobin 27.4 pg (28.0-33.3); Mean Corpuscular Volume 85.3 fL (83.0-100.0); Mean Platelet Volume 11.9 fL (9.4-12.4); Monocytes # 0.6 K/mcL (0.0-1.3); Monocytes % 6.6 %; Neutrophils # 5.1 K/mcL (1.6-8.9); Platelet Count 247 K/mcL (140-400); Red Blood Count 4.41 M/mcL (3.82-4.97); Red Cell Distribution Width 13.5 % (11.5-14.5); White Blood Count 8.3 K/mcL (4.3-11.1)
[2021-10-31 15:27] LABS: Bacteria,Urine Few per hpf (None-Few); Bilirubin,Urine Negative (Negative); Blood,Urine Negative (Negative); Clarity,Urine Turbid (Clear); Color,Urine Yellow (Yellow); Glucose,Urine (UA) Normal (Normal); Ketones,Urine Negative (Negative); Leukocyte Esterase,Urine Large (Negative); Mucus,Urine Few per lpf (None-Few); Nitrite,Urine Negative (Negative); PH,Urine 6.5 pH Units (5.0-8.0); Protein,Urine 30 mg/dL (Neg-Trace); RBC,Urine 0-3 per hpf (0-3); Specific Gravity,Urine > 1.030 (1.010-1.025); Squamous Epithelial Cell,Urine Moderate per hpf (None-Few); Urobilinogen,Urine Normal (Normal)
[2021-10-31] MEDS ORDERED: 0.9 % Sodium Chloride 1,000 ML IV ONE (15:32)
[2021-10-31] MEDS ORDERED: Ondansetron 4 MG/2 ML VIAL IVP PRN (16:18)
[2021-10-31] MEDS ORDERED: Naloxone 0.4 MG/ML INJ IVP PRN (16:18)
[2021-10-31] MEDS ORDERED: Perflutren Lipid Microsphere 1.3 ML in 0.9 % Sodium Chloride 8.7 ML IVP PRN (16:24)
[2021-10-31] MEDS: 0.9 % Sodium Chloride 1,000 ML IVC SCH (17:39)
[2021-10-31] MEDS ORDERED: Aspirin 325 MG TABLET PO ONE (17:54)
[2021-11-01] MEDS: 0.9 % Sodium Chloride 1,000 ML IVC SCH (04:12)
[2021-11-01 05:50] LABS: Basophils % 0.3 %; Eosinophils # 0.2 K/mcL (0.0-0.6); Eosinophils % 2.2 %; Hemoglobin 10.9 g/dL (11.5-15.4); Immature Granulocytes % 0.1 % (0-4); Lymphocytes % 38.3 %; Mean Corpuscular HGB Conc 31.1 g/dL (31.6-35.5); Mean Corpuscular Hemoglobin 26.5 pg (28.0-33.3); Mean Platelet Volume 11.8 fL (9.4-12.4); Monocytes # 0.5 K/mcL (0.0-1.3); Monocytes % 6.6 %; Neutrophils # 4.1 K/mcL (1.6-8.9); Platelet Count 221 K/mcL (140-400); Red Blood Count 4.12 M/mcL (3.82-4.97); Red Cell Distribution Width 13.4 % (11.5-14.5); Segmented Neutrophils % 52.5 %; White Blood Count 7.9 K/mcL (4.3-11.1)
[2021-11-01 05:54] LABS: Prothrombin Time 11.5 Seconds (9.4-12.1)
[2021-11-01 06:14] LABS: BUN/Creatinine Ratio 33 (6-26); Blood Urea Nitrogen 17 mg/dL (6-20); Calcium 8.4 mg/dL (8.6-10.3); Carbon Dioxide 24 mEq/L (23-29); Chloride 111 mEq/L (98-107); Glucose 86 mg/dL (70-105); Magnesium 1.8 mg/dL (1.6-2.6); Osmolality,Calculated 297 (280-300); Phosphorous 4.1 mg/dL (2.7-4.5); Potassium 3.9 mEq/L (3.5-5.1); Sodium 143 mEq/L (136-145); eGFR For African Americans > 60 (> 60); eGFR For Non-African Americans > 60 (> 60)
[2021-11-01 06:20] LABS: Alanine Aminotransferase 15 Units/L (7-52); Albumin 3.6 g/dL (3.5-5.7); Albumin/Globulin Ratio 1.9 (1.1-2.2); Alkaline Phosphatase 107 Units/L (34-104); Aspartate Amino Transferase 15 Units/L (13-39); BUN/Creatinine Ratio 31 (6-26); Bilirubin,Total 0.3 mg/dL (0.3-1.0); Blood Urea Nitrogen 17 mg/dL (6-20); Calcium 8.6 mg/dL (8.6-10.3); Carbon Dioxide 25 mEq/L (23-29); Chloride 111 mEq/L (98-107); Chol/HDL Ratio 2.8 (0-4.9); Cholesterol 91 mg/dL (< 200); Globulin 1.9 g/dL (2.4-3.5); Glucose 89 mg/dL (70-105); HDL Cholesterol 32 mg/dL (40-59); LDL Cholesterol,Calculated 44 mg/dL (< 100); Osmolality,Calculated 297 (280-300); Potassium 3.9 mEq/L (3.5-5.1); Sodium 143 mEq/L (136-145); Total Protein 5.5 g/dL (6.4-8.9); Triglycerides 75 mg/dL (< 150); eGFR For African Americans > 60 (> 60); eGFR For Non-African Americans > 60 (> 60)
[2021-11-01 06:26] LABS: Troponin I < 0.03 ng/mL (< 0.04)
[2021-11-01] MEDS ORDERED: amLODIPine 5 MG TABLET PO SCH (09:00)
[2021-11-01] MEDS ORDERED: Aspirin Enteric Coated 81 MG Tablet PO SCH (09:00)
[2021-11-01 10:43] VITALS: BP 125/61; PULSE 48; TEMP 98.3; O2SAT 96
[2021-11-01 11:31] LABS: Estimated Average Glucose 134 mg/dl; Hemoglobin A1C 6.3 %
== END 2021-11-01 14:38 | disposition home or self-care (01) ==
LOC: 3ANU 11:21 → EMEROOARM 11:21 → SUATTDRO 17:25 → 3ANU 17:42
PROVIDERS: ADMIT Family Medicine; ATTEND Student in an Organized Health Care Education/Training Program

== ENCOUNTER 2021-12-01 00:03 | Observation (INO) ==
[2021-12-01] MEDS ORDERED: Isovue-370 500 ML BOTTLE IVP ONE (00:41)
[2021-12-01 01:01] LABS: Hematocrit 39.6 % (35.3-44.9); Immature Granulocytes % 0.2 % (0-4); Red Cell Distribution Width 13.3 % (11.5-14.5); Segmented Neutrophils % 57.9 %
[2021-12-01 01:03] LABS: Basophils % 0.4 %; Eosinophils # 0.2 K/mcL (0.0-0.6); Eosinophils % 2.3 %; Hemoglobin 12.9 g/dL (11.5-15.4); Immature Platelets 11.2 % (1.1-6.1); Lymphocytes # 3.3 K/mcL (0.6-4.6); Lymphocytes % 32.7 %; Mean Corpuscular HGB Conc 32.6 g/dL (31.6-35.5); Mean Corpuscular Hemoglobin 27.4 pg (28.0-33.3); Mean Corpuscular Volume 84.3 fL (83.0-100.0); Mean Platelet Volume 12.3 fL (9.4-12.4); Monocytes # 0.7 K/mcL (0.0-1.3); Monocytes % 6.5 %; Neutrophils # 5.8 K/mcL (1.6-8.9); Platelet Count 208 K/mcL (140-400)
[2021-12-01 01:18] LABS: Alanine Aminotransferase 34 Units/L (7-52); Albumin 4.4 g/dL (3.5-5.7); Albumin/Globulin Ratio 1.8 (1.1-2.2); Alkaline Phosphatase 122 Units/L (34-104); Aspartate Amino Transferase 54 Units/L (13-39); BUN/Creatinine Ratio 33 (6-26); Bilirubin,Direct 0.1 mg/dL (0.0-0.2); Bilirubin,Indirect 0.3 mg/dL (0.0-1.0); Bilirubin,Total 0.4 mg/dL (0.3-1.0); Blood Urea Nitrogen 23 mg/dL (6-20); Calcium 9.3 mg/dL (8.6-10.3); Carbon Dioxide 27 mEq/L (23-29); Chloride 106 mEq/L (98-107); Globulin 2.4 g/dL (2.4-3.5); Glucose 128 mg/dL (70-105); Lipase 272 Units/L (11-82); Osmolality,Calculated 293 (280-300); Potassium 3.7 mEq/L (3.5-5.1); Sodium 139 mEq/L (136-145); Total Protein 6.8 g/dL (6.4-8.9); Troponin I < 0.03 ng/mL (< 0.04); eGFR For African Americans > 60 (> 60); eGFR For Non-African Americans > 60 (> 60)
[2021-12-01 01:37] LABS: Platelet Estimate Normal (Normal)
[2021-12-01 03:10] LABS: INR 1.1; Prothrombin Time 11.8 Seconds (9.4-12.1)
[2021-12-01 03:13] LABS: Activated Partial Thrombo Time 36.7 Seconds (26.0-36.0)
[2021-12-01] MEDS ORDERED: Ketorolac 30 MG/ML VIAL IVP ONE (03:29)
[2021-12-01] MEDS ORDERED: *HR* HYDROcodone/Acet 5/325 mg TABLET PO ONE (03:32)
[2021-12-01] MEDS ORDERED: Ondansetron 4 MG/2 ML VIAL IVP PRN (08:32)
[2021-12-01] MEDS ORDERED: Naloxone 0.4 MG/ML INJ IVP PRN (08:32)
[2021-12-01] MEDS ORDERED: SUMAtriptan succinate 50 MG TABLET PO PRN (08:36)
[2021-12-01] MEDS ORDERED: Regadenoson 0.4 MG/5 ML SYRINGE IVP ONE (09:20)
[2021-12-01] MEDS ORDERED: Perflutren Lipid Microsphere 1.3 ML in 0.9 % Sodium Chloride 8.7 ML IVP PRN ×2 (09:29→18:55)
[2021-12-01] MEDS: Nitroglycerin 0.4 MG TAB.SUBL SL SCH (10:14)
[2021-12-01] MEDS: amLODIPine 5 MG TABLET PO SCH (12:10)
[2021-12-01] MEDS: Aspirin Enteric Coated 81 MG Tablet PO SCH (12:11)
[2021-12-01] MEDS: Gabapentin 100 MG CAPSULE PO SCH ×3 (12:11→20:32)
[2021-12-01] MEDS: FLUoxetine 20 MG CAPSULE PO SCH ×2 (12:11→20:32)
[2021-12-01] MEDS: *HR* Heparin 5,000 UNIT/ML VIAL SQ SCH (17:23)
[2021-12-01] MEDS: Morphine Sulfate 2 MG/ML SYRINGE IVP PRN (18:11)
[2021-12-02] MEDS: Morphine Sulfate 2 MG/ML SYRINGE IVP PRN ×3 (00:42→17:48)
[2021-12-02 03:25] LABS: Basophils % 0.5 %; Eosinophils # 0.2 K/mcL (0.0-0.6); Hematocrit 38.5 % (35.3-44.9); Hemoglobin 12.7 g/dL (11.5-15.4); Immature Granulocytes % 0.1 % (0-4); Lymphocytes # 3.3 K/mcL (0.6-4.6); Lymphocytes % 41.3 %; Mean Corpuscular Volume 84.8 fL (83.0-100.0); Mean Platelet Volume 11.9 fL (9.4-12.4); Monocytes # 0.5 K/mcL (0.0-1.3); Monocytes % 6.7 %; Neutrophils # 3.9 K/mcL (1.6-8.9); Platelet Count 243 K/mcL (140-400); Red Blood Count 4.54 M/mcL (3.82-4.97); Red Cell Distribution Width 13.5 % (11.5-14.5); Segmented Neutrophils % 48.4 %
[2021-12-02 04:06] LABS: BUN/Creatinine Ratio 26 (6-26); Blood Urea Nitrogen 20 mg/dL (6-20); Calcium 9.1 mg/dL (8.6-10.3); Carbon Dioxide 29 mEq/L (23-29); Chloride 107 mEq/L (98-107); Glucose 93 mg/dL (70-105); Osmolality,Calculated 294 (280-300); Phosphorous 4.5 mg/dL (2.7-4.5); Potassium 4.5 mEq/L (3.5-5.1); Sodium 141 mEq/L (136-145); eGFR For African Americans > 60 (> 60); eGFR For Non-African Americans > 60 (> 60)
[2021-12-02] MEDS: *HR* Heparin 5,000 UNIT/ML VIAL SQ SCH ×2 (05:52→17:48)
[2021-12-02] MEDS: 0.9 % Sodium Chloride 1,000 ML IVC SCH ×2 (08:23→18:38)
[2021-12-02] MEDS: amLODIPine 5 MG TABLET PO SCH (08:23)
[2021-12-02] MEDS: FLUoxetine 20 MG CAPSULE PO SCH ×2 (08:23→19:28)
[2021-12-02] MEDS: Aspirin Enteric Coated 81 MG Tablet PO SCH (08:23)
[2021-12-02] MEDS: Gabapentin 100 MG CAPSULE PO SCH ×3 (08:23→19:28)
[2021-12-02 08:24] LABS: Lipase 42 Units/L (11-82)
[2021-12-02] MEDS ORDERED: Nitroglycerin 1 INCH/GM PACKET TP ONE (09:04)
[2021-12-02] MEDS ORDERED: Acetaminophen 325 MG TABLET PO PRN (09:05)
[2021-12-03] MEDS: Morphine Sulfate 2 MG/ML SYRINGE IVP PRN (03:52)
[2021-12-03] MEDS: *HR* Heparin 5,000 UNIT/ML VIAL SQ SCH (03:52)
[2021-12-03] MEDS: 0.9 % Sodium Chloride 1,000 ML IVC SCH ×3 (03:52→14:40)
[2021-12-03] MEDS ORDERED: Morphine Sulfate 2 MG/ML SYRINGE IVP ONE (04:34)
[2021-12-03] MEDS: Gabapentin 100 MG CAPSULE PO SCH ×2 (09:19→14:40)
[2021-12-03] MEDS: Aspirin Enteric Coated 81 MG Tablet PO SCH (09:19)
[2021-12-03] MEDS: FLUoxetine 20 MG CAPSULE PO SCH (09:19)
[2021-12-03] MEDS: amLODIPine 5 MG TABLET PO SCH (09:19)
[2021-12-03] MEDS ORDERED: Heparin 1,000 UNITS/500 mL 500 ML ONE (11:38)
[2021-12-03] MEDS ORDERED: 0.9 % Sodium Chloride 2,000 ML ONE (11:38)
[2021-12-03] MEDS ORDERED: *HR* Heparin 10,000 UNIT/10 ML VIAL ONE (11:38)
[2021-12-03] MEDS ORDERED: ISOVUE-370 200 ML INFUS..BTL ONE (11:39)
[2021-12-03] MEDS ORDERED: Nitroglycerin 1,000 MCG/5 ML VIAL IV ONE (11:39)
[2021-12-03] MEDS ORDERED: *HR* Midazolam HCl 2 MG/2 ML VIAL ONE (12:35)
[2021-12-03] MEDS ORDERED: *HR* FentaNYL (PF) 100 MCG/2 ML VIAL ONE (12:35)
[2021-12-03 13:52] VITALS: TEMP 98.3
[2021-12-03 16:02] VITALS: O2SAT 94
[2021-12-03 16:05] VITALS: PULSE 53
[2021-12-03 16:06] VITALS: BP 123/76
== END 2021-12-03 16:05 | disposition home or self-care (01) ==
LOC: EMEROOARM 00:03 → 3BNU 00:03
PROVIDERS: ADMIT Student in an Organized Health Care Education/Training Program; ATTEND Student in an Organized Health Care Education/Training Program